=== PATIENT | male | born 1970 | race Caucasian/White ===

== ENCOUNTER → 2016-07-26 | Outpatient (REF) | payer OTHER | LOC: M SFHCPLAZ 11:53 | PROVIDERS: ATTEND Nurse Practitioner Adult Health | DX: R35.0 Frequency of micturition (principal) ==

== ENCOUNTER → 2016-08-22 | Outpatient (CLI) | payer OTHER ==
[2016-08-22 18:06] LABS: ALBUMIN 3.9 GM/DL (3.2-5.2); ALKALINE PHOSPHATASE 87 U/L (45-117); ALT/SGPT 50 U/L (12-78); ANION GAP 9 MEQ/L (8-16); AST/SGOT 40 U/L (15-37); BILIRUBIN,TOTAL 0.8 MG/DL (0.2-1.0); BLOOD UREA NITROGEN 15 MG/DL (7-18); CARBON DIOXIDE LEVEL 30 MEQ/L (21-32); CHLORIDE LEVEL 101 MEQ/L (98-107); CREATININE FOR GFR 1.26 MG/DL (0.70-1.30); GLOMERULAR FILTRATION RATE > 60.0 (>60); GLUCOSE, FASTING 118 MG/DL (70-105); POTASSIUM SERUM 3.6 MEQ/L (3.5-5.1); SODIUM LEVEL 140 MEQ/L (136-145); TOTAL PROTEIN 6.9 GM/DL (6.4-8.2)
== END ==
LOC: M LAB 16:16
PROVIDERS: ATTEND Physician Assistant
DX: I10 Essential (primary) hypertension (principal)

== ENCOUNTER → 2017-01-01 | Outpatient (CLI) | payer MEDICAID, OTHER ==
[~2017-01-01] MED LIST: ALBU17IN INH; ALBU17IN2 INH; ATOR40TA75 PO; AUGM875T28 PO; BREO1INH; BREO1INH INH; CHLO125TA; CHLO25TA PO; COLA100C5 PO; DOCU100C16 PO; IBUP-1022 PO; IBUPOTC PO; MELO15TA4; NORCOTAB PO; NORT75CA2 PO; OMEP40CA2 PO; PROT1TAB2 PO; REGL10TA6 PO; SERT-155; SIME1CAP PO; TRAM50TA2; TYLE325T5 PO
--- NOTE | 2017-01-01 08:33 | REP ---
Abdominal right upper quadrant ultrasound: There is a mobile gallbladder calculus measuring approximately 1.8 cm in diameter. No gallbladder wall thickening or pericholecystic fluid. There is is no right upper quadrant tenderness to transducer pressure. There is no intrahepatic or extrahepatic biliary duct dilatation. The common duct measures 3.7 mm in diameter. The hepatic parenchyma is echogenic compatible with hepato steatosis. No focal hepatic masses are identified. There is focal "fat sparing" near the gallbladder. This is not unusual. The visualized portion of the pancreatic head is unremarkable. The body and tail of pancreas are obscured by bowel gas. There is no right renal hydronephrosis, calculus, mass or cyst. Right kidney is normal size measuring 11.7 cm craniocaudad length. No free fluid is identified. Impression: Echogenic hepatic parenchyma compatible with hepato steatosis. Mobile gallbladder calculus. Otherwise, negative abdominal right upper quadrant ultrasound. The examination is technically difficult because of the patient's body habitus. Signed by Ovidio Broussard MD 01/01/2017 08:25 A
== END ==
LOC: M RAD 07:40
PROVIDERS: ATTEND Physician Assistant
DX: R10.9 Unspecified abdominal pain (principal)

== ENCOUNTER 2017-01-02 16:23 | Emergency (ER) | payer MEDICAID ==
[~2017-01-02] VITALS: Ht 193 cm; Wt 161.3 kg
[2017-01-02] MEDS ORDERED: CHLO125TA (16:37)
[2017-01-02] MEDS ORDERED: TRAM50TA2 (16:37)
[2017-01-02] MEDS ORDERED: SERT-155 (16:37)
[2017-01-02] MEDS ORDERED: NORT75CA2 PO (16:37)
[2017-01-02] MEDS ORDERED: BREO1INH (16:37)
[2017-01-02] MEDS ORDERED: ATOR40TA75 PO (16:37)
[2017-01-02] MEDS ORDERED: MELO15TA4 (16:37)
[2017-01-02] MEDS ORDERED: KETOROLAC 30 MG/ML VIAL (J1885) IV ONE (17:15)
[2017-01-02] MEDS ORDERED: TRIMETHOBENZAMIDE HCL INJ 200 MG/2 ML VIAL (J3250) IM ONE (17:15)
[2017-01-02] MEDS ORDERED: GASTROGRAFIN SOLUTION 30ML (Q9963) As Ordered ONE (17:29)
[2017-01-02] MEDS ORDERED: GASTROGRAFIN SOLUTION 30ML (Q9963) PO ONE ×2 (17:30→18:00)
[2017-01-02 17:48] LABS: BASO % 0.6 % (0.0-1.0); EOS # 0.4 K/mm3 (0.0-0.50); EOS % 5.2 % (0.0-3.0); LARGE UNSTAINED CELL # 0.2 K/mm3 (0.0-0.4); MEAN CORPUSCULAR HEMOGLOBIN 30.5 pg (27.0-33.0); MEAN CORPUSCULAR HGB CONC 34.6 g/dl (32.0-36.5); MEAN CORPUSCULAR VOLUME 88.1 fl (80.0-96.0); MONO # 0.5 K/mm3 (0.0-0.8); MONO % 5.7 % (0.0-5.0); NEUTROPHILS # 5.4 K/mm3 (1.8-7.7); NEUTROPHILS % 64.6 % (36.0-66.0); PLATELET COUNT, AUTOMATED 214 k/mm3 (150-450); RED CELL DISTRIBUTION WIDTH 13.2 % (11.5-14.5); WHITE BLOOD COUNT 8.4 K/mm3 (4.0-10.0)
[2017-01-02 18:07] LABS: ALBUMIN 3.7 GM/DL (3.2-5.2); ALBUMIN/GLOBULIN RATIO 1.19 (1.00-1.93); ALKALINE PHOSPHATASE 83 U/L (45-117); ALT/SGPT 39 U/L (12-78); AMYLASE 33 U/L (25-115); ANION GAP 9 MEQ/L (8-16); AST/SGOT 26 U/L (15-37); BILIRUBIN,DIRECT 0.1 MG/DL (0.0-0.2); BILIRUBIN,TOTAL 0.5 MG/DL (0.2-1.0); BLOOD UREA NITROGEN 13 MG/DL (7-18); CARBON DIOXIDE LEVEL 26 MEQ/L (21-32); CHLORIDE LEVEL 104 MEQ/L (98-107); CREATININE FOR GFR 1.18 MG/DL (0.70-1.30); GLOMERULAR FILTRATION RATE > 60.0 (>60); GLUCOSE, FASTING 112 MG/DL (70-105); POTASSIUM SERUM 3.8 MEQ/L (3.5-5.1); SODIUM LEVEL 139 MEQ/L (136-145); TOTAL PROTEIN 6.8 GM/DL (6.4-8.2)
[2017-01-02] MEDS ORDERED: ISOVUE-370 76% 100ML VIAL (Q9967) As Ordered ONE (18:35)
--- NOTE | 2017-01-02 20:20 | REPUSA ---
CLINICAL HISTORY: Periumbilical pain. TECHNIQUE: CT abdomen and pelvis following administration of IV contrast. COMPARISON: March 21, 2016. CT ABDOMEN WITH CONTRAST: Lung bases: No lung base infiltrate or effusion. There are several nodules in the bilateral lung base s, largest measuring 6 mm in the left lower lobe, unchanged compared to prior. Liver: Fatty hepatic infiltration. No intrahepatic ductal dilation. Gallbladder: Normally distended. Pancreas: No pancreatic duct dilation. Bowel loops: Nondistended. Spleen: Normal size. Adrenals: Normal size. Kidneys: No hydronephrosis. Aorta: Normal caliber. Peritoneum: No free air. Anterior abdominal wall: There are several umbilical and paraumbilical hernias, containing both fat a nd a short loop of small bowel which appears nonobstructed. The bowel loop hernia was not present on the prior exam. CT PELVIS WITH CONTRAST: Bladder: Normally distended. Pelvic organs: Unremarkable. Peritoneum: No fluid. Inguinal: Small right fatty inguinal hernia without bowel. Lumbar spine: Degenerative spondylotic changes at multiple levels. IMPRESSION: 1. Multiple umbilical and paraumbilical hernias. The fatty paraumbilical hernias are stable, while a small bowel loop hernia is new in the interval. However, there is no evidence of strangulation or obs truction. 2. Stable bilateral lower lobe nodules.
[2017-01-02 20:42] VITALS: BP 134/92
[2017-01-02] MEDS ORDERED: OMEP40CA2 PO (20:58)
[2017-01-02] MEDS ORDERED: NORCOTAB PO (20:58)
--- NOTE | 2017-01-04 15:14 | ED PDOC ---
Post-Departure Follow-Up radiology report faxed to Evin Bowers Sarah MD Jan 04, 2017 15:14
== END 2017-01-02 21:09 | disposition home or self-care (01) ==
LOC: M ED 16:23
DX: K43.9 Ventral hernia without obstruction or gangrene (principal); K21.9 Gastro-esophageal reflux disease without esophagitis; R10.9 Unspecified abdominal pain; R91.8 Other nonspecific abnormal finding of lung field; K42.9 Umbilical hernia without obstruction or gangrene
CPT/HCPCS: 74177; 80048; 80076; 81001; 82150; 83605; 83690; 85025; 86140; 96372; 96374; 99283; J1885; J3250; Q9963; Q9967

== ENCOUNTER 2017-02-05 14:21 | Emergency (ER) | payer MEDICAID, OTHER, SELFPAY ==
[~2017-02-05] VITALS: Ht 193 cm; Wt 159.1 kg
[~2017-02-05 14:21] MED LIST changes: -ALBU17IN INH; -ALBU17IN2 INH; -AUGM875T28 PO; -BREO1INH INH; -CHLO25TA PO; -COLA100C5 PO; -DOCU100C16 PO; -IBUP-1022 PO; -IBUPOTC PO; -PROT1TAB2 PO; -REGL10TA6 PO; -SIME1CAP PO; -TYLE325T5 PO
[2017-02-05] MEDS ORDERED: MORPHINE 4 MG/ML 1ML SYRINGE IV PRN (15:45)
[2017-02-05] MEDS ORDERED: ONDANSETRON 4MG/2ML VIAL (J2405) IV ONE (15:45)
[2017-02-05] MEDS ORDERED: NS 1,000 ML IV ONE (15:45)
[2017-02-05 16:09] LABS: BASO # 0.1 K/mm3 (0.0-0.2); BASO % 0.7 % (0.0-1.0); EOS # 0.5 K/mm3 (0.0-0.50); EOS % 5.3 % (0.0-3.0); LARGE UNSTAINED CELL # 0.2 K/mm3 (0.0-0.4); LARGE UNSTAINED CELL % 2.4 % (0.0-4.0); LYMPH # 2.5 K/mm3 (1.5-4.5); LYMPH % 25.6 % (24.0-44.0); MEAN CORPUSCULAR HGB CONC 34.6 g/dl (32.0-36.5); MEAN CORPUSCULAR VOLUME 89.6 fl (80.0-96.0); MONO # 0.4 K/mm3 (0.0-0.8); NEUTROPHILS # 5.4 K/mm3 (1.8-7.7); NEUTROPHILS % 61.1 % (36.0-66.0); PLATELET COUNT, AUTOMATED 212 k/mm3 (150-450); RED CELL DISTRIBUTION WIDTH 12.9 % (11.5-14.5); WHITE BLOOD COUNT 8.8 K/mm3 (4.0-10.0)
[2017-02-05 16:32] LABS: ALBUMIN 3.9 GM/DL (3.2-5.2); ALBUMIN/GLOBULIN RATIO 1.03 (1.00-1.93); ALKALINE PHOSPHATASE 73 U/L (45-117); ALT/SGPT 38 U/L (12-78); ANION GAP 7 MEQ/L (8-16); AST/SGOT 20 U/L (15-37); BILIRUBIN,DIRECT 0.1 MG/DL (0.0-0.2); BILIRUBIN,TOTAL 0.9 MG/DL (0.2-1.0); BLOOD UREA NITROGEN 21 MG/DL (7-18); CALCIUM LEVEL 9.3 MG/DL (8.5-10.1); CARBON DIOXIDE LEVEL 27 MEQ/L (21-32); CHLORIDE LEVEL 104 MEQ/L (98-107); CREATININE FOR GFR 1.25 MG/DL (0.70-1.30); GLOMERULAR FILTRATION RATE > 60.0 (>60); GLUCOSE, FASTING 90 MG/DL (70-105); POTASSIUM SERUM 3.7 MEQ/L (3.5-5.1); SODIUM LEVEL 138 MEQ/L (136-145); TOTAL PROTEIN 7.7 GM/DL (6.4-8.2)
[2017-02-05] MEDS ORDERED: ISOVUE-370 76% 100ML VIAL (Q9967) As Ordered ONE (16:37)
[2017-02-05] MEDS ORDERED: COLA100C5 PO (17:25)
--- NOTE | 2017-02-05 17:27 | REP ---
CT abdomen and pelvis with IV but without oral contrast: History: Lower abdominal pain. Question obstruction versus incarcerated hernia. Comparison CT study 01/02/2017. CT findings: Preliminary digital executive sales manager radiograph demonstrates an unremarkable bowel gas pattern. The lung bases are clear except for the presence of multiple bilateral lower lobe pleural-based pulmonary nodules. These are unchanged from multiple prior studies dating back to 2010. There is mild diffuse fatty infiltration of the liver. No liver mass lesion is seen. No adrenal lesion is observed on either side. The gallbladder and the pancreas are unremarkable. The kidneys enhance symmetrically and are morphologically intact. Pelvic CT images demonstrate a broad-based defect in the anterior abdominal wall in the umbilical region transmitting abdominal fat and a loop of unobstructed small intestine. The abdominal wall defect measures 8.4 cm in medial to lateral dimension x 3.4 cm cranial to caudal. Bowel loops are otherwise unremarkable. Urinary bladder prostate and seminal vesicles are unremarkable. No bony destructive lesion is seen. Impression: Ellen-Umbilical ventral hernia transmitting abdominal fat and a small bowel loop. No evidence of obstruction or strangulation. No acute intra-abdominal abnormality. Signed by Derrick Lozano MD 02/06/2017 08:01 A
[2017-02-05 17:30] VITALS: BP 130/68
== END 2017-02-05 17:31 | disposition home or self-care (01) ==
LOC: M ED 14:21
DX: K43.9 Ventral hernia without obstruction or gangrene (principal); I10 Essential (primary) hypertension; E78.5 Hyperlipidemia, unspecified; J45.909 Unspecified asthma, uncomplicated; F32.9 Major depressive disorder, single episode, unspecified; Z79.899 Other long term (current) drug therapy
CPT/HCPCS: 74177; 80048; 80076; 81001; 83605; 83690; 85025; 96374; 96375; 99283; J2405; Q9967

== ENCOUNTER 2017-02-20 20:54 | Inpatient (IN) | payer OTHER ==
[~2017-02-20] VITALS: Ht 193 cm; Wt 162.0 kg
[~2017-02-20 20:54] MED LIST changes: +COLA100C5 PO
[2017-02-20] MEDS ORDERED: ALBU17IN2 INH (21:10)
[2017-02-20] MEDS ORDERED: ONDANSETRON 4MG/2ML VIAL (J2405) IV ONE (23:15)
[2017-02-20] MEDS ORDERED: NS 1,000 ML IV ONE (23:15)
[2017-02-20] MEDS: MORPHINE 4 MG/ML 1ML SYRINGE IV PRN (23:26)
[2017-02-20 23:27] LABS: BASO # 0.1 K/mm3 (0.0-0.2); BASO % 0.7 % (0.0-1.0); EOS # 0.4 K/mm3 (0.0-0.50); EOS % 3.9 % (0.0-3.0); LARGE UNSTAINED CELL # 0.2 K/mm3 (0.0-0.4); LYMPH # 2.4 K/mm3 (1.5-4.5); MEAN CORPUSCULAR HEMOGLOBIN 29.8 pg (27.0-33.0); MEAN CORPUSCULAR HGB CONC 33.4 g/dl (32.0-36.5); MEAN CORPUSCULAR VOLUME 89.2 fl (80.0-96.0); MONO # 0.4 K/mm3 (0.0-0.8); MONO % 4.4 % (0.0-5.0); NEUTROPHILS # 5.9 K/mm3 (1.8-7.7); PLATELET COUNT, AUTOMATED 178 k/mm3 (150-450); RED CELL DISTRIBUTION WIDTH 12.6 % (11.5-14.5); WHITE BLOOD COUNT 9.1 K/mm3 (4.0-10.0)
[2017-02-20 23:43] LABS: ALBUMIN 3.5 GM/DL (3.2-5.2); ALBUMIN/GLOBULIN RATIO 1.17 (1.00-1.93); ALKALINE PHOSPHATASE 65 U/L (45-117); ALT/SGPT 34 U/L (12-78); ANION GAP 7 MEQ/L (8-16); AST/SGOT 14 U/L (15-37); BILIRUBIN,DIRECT 0.1 MG/DL (0.0-0.2); BILIRUBIN,TOTAL 0.5 MG/DL (0.2-1.0); BLOOD UREA NITROGEN 14 MG/DL (7-18); CARBON DIOXIDE LEVEL 28 MEQ/L (21-32); CHLORIDE LEVEL 107 MEQ/L (98-107); CREATININE FOR GFR 1.25 MG/DL (0.70-1.30); GLOMERULAR FILTRATION RATE > 60.0 (>60); GLUCOSE, FASTING 124 MG/DL (70-105); POTASSIUM SERUM 3.7 MEQ/L (3.5-5.1); SODIUM LEVEL 142 MEQ/L (136-145); TOTAL PROTEIN 6.5 GM/DL (6.4-8.2)
[2017-02-21] MEDS: MORPHINE 4 MG/ML 1ML SYRINGE IV PRN (00:08)
[2017-02-21] MEDS ORDERED: ISOVUE-370 76% 100ML VIAL (Q9967) As Ordered ONE ×2 (00:42→14:27)
--- NOTE | 2017-02-21 01:30 | REPUSA ---
CLINICAL HISTORY: Abdominal pain. TECHNIQUE: Multiple axial, sagittal and coronal CT images were obtained through the abdomen and pelvi s after administration of oral and intravenous contrast material. COMMENTS: Comparison to the prior exam performed on 01/02/2017. Unchanged hepatomegaly with fatty liver infiltration. Unchanged bilateral basilar atelectatic pulmonary changes. Unchanged cholelithiasis. Unchanged basilar scattered noncalcified pulmonary nodules. Again are noted anterior abdominal wall hernias containing fat. No associated small bowel herniation on the current exam. Mildly dilated mid small bowel loops are identified at the junction between the jejunum and ileum adj acent to the intra-abdominal fat at the hernia site. Findings are suspicious for partial small bowel obstruction, probably secondary to adhesions. No associated small bowel perforation or pneumatosis in testinalis. No associated small bowel herniation or strangulation. Bilateral fat containing inguinal hernias without incarceration. There is no intra or extrahepatic biliary ductal dilatation. The spleen is normal. The gallbladder is within normal limits. The pancreas is of normal contour and attenuation characteristics. There is no evidence of adrenal mass. Both kidneys demonstrate prompt and equal nephrograms. The kidneys are normal in size, shape and conf iguration. There is no evidence of renal or ureteral mass. No renal or ureteral calculi are identifie d. There is no hydroureter or hydronephrosis. No evidence for appendicitis. There is no evidence of abdominal ascites or lymphadenopathy. There is no evidence of intrinsic or extrinsic bladder mass. There is no pelvic ascites or lymphadeno elina. Images of the lung bases show no evidence of pleural or parenchymal mass. There are no pleural effusi ons. The bony structures are free of lytic or blastic lesions. IMPRESSION: Comparison to the prior exam performed on 01/02/2017. Unchanged hepatomegaly with fatty liver infiltration. Unchanged bilateral basilar atelectatic pulmonary changes. Unchanged cholelithiasis. Unchanged basilar scattered noncalcified pulmonary nodules. Again are noted anterior abdominal wall hernias containing fat. No associated small bowel herniation on the current exam. Mildly dilated mid small bowel loops are identified at the junction between the jejunum and ileum adj acent to the intra-abdominal fat at the hernia site. Findings are suspicious for partial small bowel obstruction, probably secondary to adhesions. No associated small bowel perforation or pneumatosis in testinalis. No associated small bowel herniation or strangulation. Bilateral fat containing inguinal hernias without incarceration. Thank you for your kind referral of this patient.
[2017-02-21] MEDS ORDERED: MORPHINE 4 MG/ML 1ML SYRINGE IV PRN (01:45)
[2017-02-21] MEDS ORDERED: ONDANSETRON 4MG/2ML VIAL (J2405) IV ONE (01:45)
[2017-02-21] MEDS ORDERED: ONDANSETRON 4MG/2ML VIAL (J2405) IV PRN (03:00)
[2017-02-21] MEDS: LR 1,000 ML IV SCH ×3 (03:06→21:37)
[2017-02-21] MEDS ORDERED: DOCU100C16 PO (03:22)
[2017-02-21] MEDS ORDERED: BREO1INH INH (03:22)
[2017-02-21] MEDS ORDERED: ALBU17IN INH (03:22)
[2017-02-21] MEDS ORDERED: CHLO25TA PO (03:22)
[2017-02-21] MEDS ORDERED: IBUPOTC PO (03:22)
[2017-02-21 04:20] VITALS: BP 137/90
[2017-02-21] MEDS: MORPHINE 2 MG/ML 1ML SYRINGE IV PRN ×2 (06:31→16:02)
[2017-02-21] MEDS ORDERED: CHLORTHALIDONE 25 MG TAB PO SCH (09:00)
[2017-02-21] MEDS ORDERED: BISACODYL 10 MG SUPP PR PRN (10:45)
[2017-02-21] MEDS ORDERED: IBUPROFEN 200 MG TAB PO PRN (10:45)
[2017-02-21] MEDS ORDERED: MOM 30ML SUSPENSION UDC PO PRN (10:45)
[2017-02-21] MEDS ORDERED: NORCO, ANEXSIA 5/325MG TABLET (HYDROcodone/ACETAMINOPHEN) PO PRN (10:45)
[2017-02-21] MEDS ORDERED: ALBUTEROL 90 MCG/ACT 8GM HFA INHALER INH PRN (10:45)
[2017-02-21] MEDS ORDERED: KETOROLAC 30 MG/ML VIAL (J1885) IV PRN (10:45)
[2017-02-21] MEDS: DOCUSATE SODIUM 100 MG CAP PO SCH ×2 (11:58→21:38)
[2017-02-21] MEDS: PANTOPRAZOLE 40MG INJ (PROTONIX) (C9113) IV SCH (11:58)
[2017-02-21] MEDS: SENOKOT S TAB PO SCH ×2 (11:58→21:38)
[2017-02-21] MEDS: PIPERACILLIN/TAZOBACTAM SOD 3.375 GM in D5W MINI-BAG PLUS 50 ML IV SCH ×3 (11:59→22:38)
--- NOTE | 2017-02-21 13:01 | CR ---
DATE OF CONSULTATION: 02/21/2017 REQUESTING PROVIDER: Dr. Lozoya, general surgeon. PRIMARY CARE PROVIDER: REX Driver CURRENT FAMILY MEDICINE ATTENDING: Moisés Acevedo MD CHIEF COMPLAINT: Abdominal pain. HISTORY OF PRESENT ILLNESS: Hunter Marrufo is a patient who was admitted by Dr. Lozoya for abdominal pain and found to have a partial small-bowel obstruction. Hunter Marrufo is a patient who follows with REX Driver at [facility]. He has currently been undergoing workup for consideration of gastric bypass surgery and is following with Dr. Luevano in [place]. The patient was seen last week for preoperative clearance; however, clearance was not granted due to some EKG abnormalities and the patient has been referred to [facility], whom he has been seen in the past by for further workup, including stress testing and cardiac clearance. Otherwise, the patient is followed for history of asthma, which is well-controlled on Breo Ellipta. The patient does have a history of hypertension and is on chlorthalidone. He is on atorvastatin for hyperlipidemia. The patient does have a history of abdominal hernias that he has been seen by general surgery in the past. Since the patient's admission, a nasogastric tube was placed and he reports feeling better. Dr. Lozoya is managing the partial small-bowel obstruction. He was started on IV Zosyn and is getting IV fluids. He is getting morphine as needed for pain and is on Protonix for GI prophylaxis. REVIEW OF SYSTEMS: The patient denies chest pain, palpitations, shortness of breath, headaches, dizziness, fevers, chills, loss of consciousness, cold symptoms, anxiety or depression. The patient does continue to have some abdominal discomfort but he states it is better since the NG tube was placed. Remainder of 10-system review is otherwise negative. MEDICATIONS: The patient's outpatient medications include: - Colace 100 mg daily - nortriptyline 75 mg at night - albuterol inhaler as needed - atorvastatin 40 mg by mouth at night - chlorthalidone 12.5 mg daily - Zoloft 50 mg daily - Breo Ellipta one puff daily - Zofran as needed - Tramadol 50 mg every 6 hours as needed for pain PAST MEDICAL HISTORY: Includes: 1. Asthma. 2. Migraine headaches. 3. Hypertension. 4. History of ventral hernia. 5. Obesity. SURGICAL HISTORY: Includes: 1. Left ankle surgery. 2. Right index finger surgery. 3. Umbilical hernia repair. FAMILY HISTORY: Noncontributory. SOCIAL HISTORY: The patient is a nonsmoker. The patient lives with his . ALLERGIES: NO KNOWN DRUG ALLERGIES. VITAL SIGNS: Temperature 97.1, pulse 75, respiratory rate 18, blood pressure is 137/90, pulse oximetry 96%. GENERAL: The patient is alert, no acute distress. No respiratory distress. HEENT: Head is normocephalic, atraumatic. CHEST: Clear to auscultation bilaterally. HEART: Regular rate and rhythm. ABDOMEN: Obese. Positive bowel sounds, soft, diffuse tenderness to palpation all quadrants. The patient does have an NG tube in. EXTREMITIES: No clubbing, cyanosis or edema. LABORATORY DATA: Labs from 02/20/2017 a 2153 hours: WBC 9.1, hemoglobin 14.3, hematocrit 42.7, platelets 178. Sodium 142, potassium 3.7, chloride 107, carbon dioxide 28, BUN 14, creatinine 1.25, glucose 125, calcium 9.0, total bili 0.5, direct bilirubin 0.1, AST 14, ALT 34, alkaline phosphatase 65, CK1 of 76, CK-MB 1.5, CK-MB relative index 0.85. Troponin I of less than 0.02, total protein 6.5, albumin 3.5, lipase 250. IMAGING STUDIES: CT the abdomen, pelvis shows comparison to prior exam on 01/02/2017, which showed unchanged hepatomegaly with fatty liver infiltration. Unchanged bilateral basilar atelectatic pulmonary changes. Unchanged cholelithiasis. Unchanged basilar scattered noncalcified pulmonary nodules. Anterior abdominal wall hernias containing fat. Mildly dilated mid small bowel loops at the junction between the jejunum and ileum adjacent to the intra-abdominal fat at the hernia site and radiologist notes the findings are suspicious for partial small bowel obstruction, probably secondary to adhesions. No associated small bowel perforation or pneumatosis intestinalis. No associated small-bowel herniation or strangulation. Bilateral fat containing inguinal hernias without incarceration. ASSESSMENT AND PLAN: 1. Partial small-bowel obstruction. The patient is admitted to the surgical service and is being followed by Dr. Lozoya. Currently has a nasogastric tube. Continue pain control with as needed morphine. Getting IV fluids. Is on IV Zosyn. 2. History of abdominal hernias. As noted, the patient is being followed by general surgery. 3. Morbid obesity. The patient is currently being worked up and considered for gastric bypass surgery with Dr. Luevano in [place]. 4. History of abnormal EKG. The patient has been referred to cardiology as an outpatient for cardiac clearance and stress testing. Currently, no cardiac symptoms or chest pain. 5. History of pulmonary nodules on CT. Recent CT notes unchanged basilar scattered noncalcified pulmonary nodules. In reviewing his previous CTs, these have been unchanged since at least 2010. 6. Hypertension. Continue chlorthalidone. 7. Asthma. The patient is on as needed albuterol. 8. Hyperlipidemia. The patient is on Lipitor. 9. Gastrointestinal prophylaxis. The patient is on Protonix. 10. Deep vein thrombosis (DVT) prophylaxis. The patient is on heparin.
[2017-02-21 14:00] VITALS: BP 155/99
[2017-02-21] MEDS: HEPARIN SOD (PORCINE) 5000 UNITS/ML VIAL SC SCH ×3 (14:00→21:38)
--- NOTE | 2017-02-21 15:46 | HPE ---
DATE OF ADMISSION: 02/21/2017 CHIEF COMPLAINT: Abdominal distention and pain. HISTORY OF PRESENT ILLNESS: The patient is a 46-year-old male with a complicated history of abdominal hernia repair in the past. Since then, he has had chronic upper abdominal pains and chronic nausea. He currently is undergoing workup for a bariatric procedure and they are going to fix this recurrent umbilical hernia for him at the same time. However, that was delayed due to an abnormal EKG and he is waiting on cardiac clearance. For the last 24 hours, he has had increased abdominal distention, upper abdominal pain and cramping as well as some increased nausea and vomiting. Because of that, he came into the emergency room for evaluation. In the emergency room (ER), his laboratories were normal. No fevers but his CT scan did show slightly dilated proximal small bowel suspicious for a partial small bowel obstruction secondary to adhesions. Because of this, I was asked to evaluate him for admission. Currently, he has been admitted and had an nasogastric (NG) tube placed. After NG tube placement, his nausea and vomiting were quickly relieved as well as some of his abdominal discomfort. I have discussed this case with Donnie Bowers, his PA through Dr. Waters' office, who says that his abdominal pain is usually chronic in nature but he does agree that his symptoms are slightly increased from baseline. He has had the umbilical hernia repair somewhere from 6-8 years ago. No other abdominal surgeries. No recent changes to his abdomen. No recent illness. No recent travel. No recent trauma to the abdomen. PAST MEDICAL HISTORY: 1. Asthma. 2. Migraines. 3. Hypertension. 4. Obesity. PAST SURGICAL HISTORY: 1. Left ankle surgery. 2. Right index finger surgery. 3. Umbilical hernia repair. ALLERGIES: None. HOME MEDICATIONS: Please see medical record. FAMILY HISTORY: Noncontributory. SOCIAL HISTORY: He denies any drug, alcohol, or tobacco abuse. REVIEW OF SYSTEMS: Pertinent positives and negatives as stated in the history of present illness (HPI). PHYSICAL EXAMINATION: GENERAL: The patient is alert and oriented times three, in no acute distress. VITAL SIGNS: Temperature 97.1, pulse 75, respiratory rate 18, blood pressure 137/90, pulse oximetry 94% on room air. HEENT: Pupils are equally round and react to light and accommodation. HEART: S1, S2, regular rate and rhythm. LUNGS: Clear to auscultation bilaterally. ABDOMEN: Soft, slightly distended, tender to palpation in the left upper and right upper quadrant. No rebounding or guarding. No signs of peritonitis. There is a large ventral hernia palpable that is incarcerated and nonreducible. However, there are no skin changes over the to of it and no tenderness over palpation at that area. EXTREMITIES: No clubbing, cyanosis, or edema. LABORATORY DATA: White count 9.1, hemoglobin 14.3, platelets 178. Sodium 142, potassium 3.7, creatinine 1.25. IMAGING STUDIES: CT abdomen and pelvis shows comparison to a prior examination from 01/02/2017, unchanged hepatomegaly, unchanged cholelithiasis. There are anterior abdominal wall hernias containing fat. No small bowel herniation. There is mildly dilated mid small bowel loops identified at the junction between the jejunum and ileum adjacent to the intraabdominal fat at the hernia site. Findings are suspicious for a partial small bowel obstruction, probably secondary to adhesions. No associated small bowel perforation or pneumatosis intestinalis. ASSESSMENT AND PLAN: The patient is a 46-year-old male with partial small bowel obstruction versus ileus, likely secondary to adhesions. Recommendation at this time is to treat medically with nasogastric (NG) tube, IV fluids, antibiotics, and abdominal decompression. We will try this for 72 hours. If he does not have any improvement in his symptoms then he may be a candidate for a diagnostic laparoscopy with lysis of adhesions to relieve the obstruction. Due to his history of the abnormal EKG, I have to REX Pelayo who plans to evaluate him while he is here.
--- NOTE | 2017-02-21 15:48 | REP ---
Clinical: Follow-up pulmonary nodules. Technique: Axial contrast enhanced images from the thoracic inlet to the upper abdomen using 100 ml Isovue 370 intravenous contrast material with coronal and sagittal re-formations. Comparison: Multiple abdominal CT examinations dating through 09/16/2010. Findings: The noncalcified bilateral basilar subpleural and peripheral based nodules remain stable through CT dated 2010. Mild linear bibasilar atelectasis is appreciated and should be correlated clinically. The remainder of lung glass are clear and without further consolidation, nodule or mass lesion. No axillary, hilar, or mediastinal adenopathy. Mediastinum demonstrates normal thoracic aorta and heart/pericardium. Nasogastric tube identified extending into the stomach. Fatty infiltration to the liver is appreciated along with cholelithiasis. Surrounding musculoskeletal structures are intact. Impression: 1. Noncalcified nodular densities remain stable compared to 2010 and require no further investigation. 2. Minimal bibasilar atelectasis. 3. Fatty infiltration to the liver. 4. Cholelithiasis. Signed by Donnie Tucker MD 02/21/2017 03:40 P
--- NOTE | 2017-02-21 18:25 | ECGEPIP ---
Stationary ECG Study [facility] - ED Test Date: 2017-02-20 Pat Name: ANTHONY ARIAS Department: Room: [place] [address] Gender: M Tank Cleaner: dorinda : 1970 Requested By: VLADIMIR Rivera Order Number: [id number] Reading MD: Jayson Smiley Measurements Intervals [place] Rate: 80 P: 16 GA: 216 QRS: -66 QRSD: 128 T: 47 QT: 363 QTc: 419 Interpretive Statements SINUS RHYTHM WITH FIRST DEGREE AV BLOCK LAD LEFT ANTERIOR FASCICULAR BLOCK POSSIBLE ANTERIOR MYOCARDIAL INFARCTION, OF INDETERMINATE AGE Electronically Signed On 02-21-2017 18:25:42 EDT by Jayson Smiley
[2017-02-21] MEDS: ADVAIR HFA 115/21MCG INHALER INH SCH (21:35)
[2017-02-21] MEDS: NORTRIPTYLINE 25 MG CAP PO SCH (21:38)
[2017-02-21] MEDS: ATORVASTATIN 20 MG TAB PO SCH (21:38)
[2017-02-21 22:00] VITALS: BP 135/86
[2017-02-21] MEDS: ACETAMINOPHEN TAB 650MG DOSE (2X325MG) PO PRN (22:38)
[2017-02-22] MEDS: HEPARIN SOD (PORCINE) 5000 UNITS/ML VIAL SC SCH ×3 (05:42→21:35)
[2017-02-22] MEDS: PIPERACILLIN/TAZOBACTAM SOD 3.375 GM in D5W MINI-BAG PLUS 50 ML IV SCH ×4 (05:42→23:20)
[2017-02-22] MEDS: LR 1,000 ML IV SCH ×3 (05:42→19:54)
[2017-02-22 06:00] VITALS: BP 116/65
[2017-02-22 06:39] LABS: MEAN CORPUSCULAR HGB CONC 33.3 g/dl (32.0-36.5); MEAN CORPUSCULAR VOLUME 90.2 fl (80.0-96.0); RED CELL DISTRIBUTION WIDTH 12.7 % (11.5-14.5); WHITE BLOOD COUNT 6.2 K/mm3 (4.0-10.0)
[2017-02-22 06:54] LABS: ANION GAP 9 MEQ/L (8-16); BLOOD UREA NITROGEN 11 MG/DL (7-18); CALCIUM LEVEL 8.4 MG/DL (8.5-10.1); CARBON DIOXIDE LEVEL 29 MEQ/L (21-32); CHLORIDE LEVEL 104 MEQ/L (98-107); CREATININE FOR GFR 1.07 MG/DL (0.70-1.30); GLOMERULAR FILTRATION RATE > 60.0 (>60); GLUCOSE, FASTING 94 MG/DL (70-105); MAGNESIUM LEVEL 1.9 MG/DL (1.8-2.4); POTASSIUM SERUM 3.6 MEQ/L (3.5-5.1); SODIUM LEVEL 142 MEQ/L (136-145)
[2017-02-22] MEDS: ADVAIR HFA 115/21MCG INHALER INH SCH ×2 (08:13→20:12)
[2017-02-22] MEDS: CHLORTHALIDONE 12.5MG PER 1/2 TABLET PO SCH (09:00)
[2017-02-22] MEDS: PANTOPRAZOLE 40MG INJ (PROTONIX) (C9113) IV SCH (09:14)
[2017-02-22] MEDS: DOCUSATE SODIUM 100 MG CAP PO SCH ×2 (09:14→21:35)
[2017-02-22] MEDS: SENOKOT S TAB PO SCH ×2 (09:14→21:34)
[2017-02-22] MEDS: ACETAMINOPHEN TAB 650MG DOSE (2X325MG) PO PRN ×2 (09:24→20:31)
[2017-02-22 14:00] VITALS: BP 131/87
[2017-02-22] MEDS: NORTRIPTYLINE 25 MG CAP PO SCH (21:35)
[2017-02-22] MEDS: ATORVASTATIN 20 MG TAB PO SCH (21:35)
[2017-02-22 22:00] VITALS: BP 136/68
[2017-02-23] MEDS: LR 1,000 ML IV SCH ×2 (03:44→15:14)
[2017-02-23] MEDS: HEPARIN SOD (PORCINE) 5000 UNITS/ML VIAL SC SCH ×3 (05:23→20:30)
[2017-02-23] MEDS: PIPERACILLIN/TAZOBACTAM SOD 3.375 GM in D5W MINI-BAG PLUS 50 ML IV SCH ×2 (05:23→11:52)
[2017-02-23 05:43] LABS: MEAN CORPUSCULAR HEMOGLOBIN 30.4 pg (27.0-33.0); MEAN CORPUSCULAR HGB CONC 33.9 g/dl (32.0-36.5); MEAN CORPUSCULAR VOLUME 89.6 fl (80.0-96.0); RED CELL DISTRIBUTION WIDTH 12.6 % (11.5-14.5); WHITE BLOOD COUNT 7.5 K/mm3 (4.0-10.0)
[2017-02-23 06:00] VITALS: BP 138/98
[2017-02-23 06:09] LABS: ANION GAP 6 MEQ/L (8-16); BLOOD UREA NITROGEN 7 MG/DL (7-18); CALCIUM LEVEL 9.3 MG/DL (8.5-10.1); CARBON DIOXIDE LEVEL 32 MEQ/L (21-32); CHLORIDE LEVEL 103 MEQ/L (98-107); CREATININE FOR GFR 1.17 MG/DL (0.70-1.30); GLOMERULAR FILTRATION RATE > 60.0 (>60); GLUCOSE, FASTING 92 MG/DL (70-105); MAGNESIUM LEVEL 2.2 MG/DL (1.8-2.4); POTASSIUM SERUM 3.6 MEQ/L (3.5-5.1); SODIUM LEVEL 141 MEQ/L (136-145)
[2017-02-23] MEDS: ADVAIR HFA 115/21MCG INHALER INH SCH ×2 (07:25→20:12)
[2017-02-23 09:36] VITALS: BP 132/94
[2017-02-23] MEDS: SENOKOT S TAB PO SCH ×2 (10:05→20:30)
[2017-02-23] MEDS: CHLORTHALIDONE 12.5MG PER 1/2 TABLET PO SCH (10:05)
[2017-02-23] MEDS: PANTOPRAZOLE 40MG INJ (PROTONIX) (C9113) IV SCH (10:05)
[2017-02-23] MEDS: DOCUSATE SODIUM 100 MG CAP PO SCH ×2 (10:05→20:30)
[2017-02-23 14:35] VITALS: BP 132/85
--- NOTE | 2017-02-23 16:25 | IPN ---
DATE: 02/23/2017 SUBJECTIVE: The patient is now day three in the hospital for management of an intestinal obstruction. His nasogastric (NG) tube has been clamped since yesterday and he has been tolerating clear liquids without any difficulty. He is having flatus but denies any bowel movement, though he does have a quantity of stool recorded in the intake and output. He denies any pain at this time. He has been up ambulating. Vital signs most recently show a temperature of 99.2, pulse is 89, respirations 18 with a blood pressure of 132/85. His room air saturation is 94%. Intake and output: Yesterday he had 3300 in and 2800 out. So far today, he has had 600 of oral intake and 1400 of intravenous (IV) fluid. PHYSICAL EXAMINATION: Patient is an obese young man lying quietly on the hospital bed. He has a nasogastric tube in place which is clamped. Heart exam shows a regular rate and rhythm. The lungs are clear. The abdomen is obese and soft. His hernia is palpable in the right lower quadrant and this is mildly tender initially, but does seem to be at least partially reducible. The remainder of his abdomen is nontender with active bowel sounds. LABORATORY FINDINGS: White count is 7.5 with a hemoglobin of 14, hematocrit of 42%. Chemistries show a normal set of electrolytes, BUN, creatinine and glucose. IMPRESSION: Resolved intestinal obstruction. PLAN: The patient's NG tube will be discontinued. His diet will be advanced to regular. His IV fluid will be discontinued. If he tolerates his regular diet today, I would anticipate he could be discharged tomorrow. DINORAH
[2017-02-23] MEDS ORDERED: HEPARIN SOD (PORCINE) 5000 UNITS/ML VIAL As Ordered ONE (20:27)
[2017-02-23] MEDS: ATORVASTATIN 20 MG TAB PO SCH (20:30)
[2017-02-23] MEDS: NORTRIPTYLINE 25 MG CAP PO SCH (20:31)
[2017-02-23 22:00] VITALS: BP 140/88
[2017-02-24] MEDS: HEPARIN SOD (PORCINE) 5000 UNITS/ML VIAL SC SCH (05:41)
[2017-02-24 06:00] VITALS: BP 123/75
[2017-02-24] MEDS: ADVAIR HFA 115/21MCG INHALER INH SCH (07:19)
[2017-02-24] MEDS: CHLORTHALIDONE 12.5MG PER 1/2 TABLET PO SCH (09:41)
[2017-02-24] MEDS: DOCUSATE SODIUM 100 MG CAP PO SCH (09:41)
[2017-02-24] MEDS: SENOKOT S TAB PO SCH (09:41)
--- NOTE | 2017-02-24 14:12 | IPN ---
DATE: 02/24/2017 The patient is dressed in street clothes and lying quietly on the bed when I entered today. He tolerated his regular diet well. He denies any nausea or vomiting. He has had bowel movements and is passing some gas. VITAL SIGNS: Temperature 97.4, pulse 91, respirations 18 and a blood pressure of 123/75 at 0600. Intake and output yesterday was 4200 in and 1100 recorded out. He has several voids recorded today. PHYSICAL EXAMINATION: Reveals an obese man in no obvious discomfort. Heart examination shows a regular rhythm. The lungs are clear. The abdomen is obese and soft. He is nondistended. There is some minimal tenderness to palpation in the right upper quadrant. His hernia is palpable at the level of the umbilicus but is nontender. He does have active bowel sounds present. There are no new laboratory studies or imaging today. IMPRESSION: Resolved intestinal obstruction. The patient is tolerating a regular diet and has had a return of bowel function. PLAN: The patient will be discharged home. He was advised that there is always a chance that his obstruction could recur and that this is unpredictable and unpreventable. I did recommend that he avoid stringy vegetables in his diet for the next week or so. He can followup with general surgery on an as-needed basis. I advised him that if he notes a recurrence of obstruction symptoms, he should come to the emergency department. He should continue his followup with his primary MD regarding the workup for his gastric bypass. DINORAH
--- NOTE | 2017-03-01 19:18 | DSES ---
DATE OF ADMISSION: 02/21/2017 DATE OF DISCHARGE: 02/24/2017 ADMISSION DIAGNOSIS: Partial small-bowel obstruction. DISCHARGE DIAGNOSIS Partial small-bowel obstruction. HOSPITAL COURSE: The patient is a 46-year-old male with complicated history of abdominal hernia repair in the past. Currently has a very large recurrent hernia and is awaiting gastric bypass with hernia repair. He just waiting on finishing up a cardiac workup. He presented to the emergency room (ER) on February 21 with increasing abdominal distension, nausea, and vomiting, found to have a possible partial small-bowel obstruction on CT scan. He had a nasogastric (NG) tube placed, intravenous (IV) fluids started, and was kept nothing by mouth for the first 48 hours. He had minimal output from his NG tube and started to pass flatus right away. Within 48 hours his abdominal pain completely resolved. NG tube was clamped, and he started on clear liquid diet. After 12 hours the NG tube was removed, and his diet was advanced. Over the next 24 hours, he started to have some small bowel movements, and his belly pain continued to improve. The morning of the February 24, his abdomen was soft, nondistended. The ventral hernias were palpable and soft. No signs of any skin changes. He was tolerating regular rate diet and ambulating appropriately. Plan was to discharge home. Followup with his primary physician, Evin Bowers, and continue his cardiac workup so he can proceed with his surgery as planned.
== END 2017-02-24 13:00 | disposition home or self-care (01) | DRG 247 ==
LOC: M ED 20:54 → EDBD 20:54 → M ED INP 02-21 02:34 → M MSPAV 02-21 04:17
PROVIDERS: ADMIT Surgery; ATTEND Surgery
DX: K56.60 Unspecified intestinal obstruction (principal); Z68.41 Body mass index [BMI] 40.0-44.9, adult; I10 Essential (primary) hypertension; E66.01 Morbid (severe) obesity due to excess calories; J45.909 Unspecified asthma, uncomplicated; Z79.899 Other long term (current) drug therapy; R91.8 Other nonspecific abnormal finding of lung field; E78.5 Hyperlipidemia, unspecified

== ENCOUNTER 2017-03-01 12:51 | Emergency (ER) | payer MEDICAID, OTHER ==
[~2017-03-01] VITALS: Ht 193 cm; Wt 159.1 kg
[~2017-03-01 12:51] MED LIST changes: +ALBU17IN INH; +ALBU17IN2 INH; +BREO1INH INH; +CHLO25TA PO; +DOCU100C16 PO; +IBUPOTC PO
[2017-03-01] MEDS ORDERED: METOCLOPRAMIDE INJ 10MG/2ML VIAL (J2765) IV ONE (14:15)
[2017-03-01] MEDS ORDERED: NS 1,000 ML IV ONE (14:15)
[2017-03-01 14:55] LABS: BASO % 0.6 % (0.0-1.0); EOS # 0.3 K/mm3 (0.0-0.50); EOS % 3.2 % (0.0-3.0); LARGE UNSTAINED CELL # 0.1 K/mm3 (0.0-0.4); LARGE UNSTAINED CELL % 1.1 % (0.0-4.0); LYMPH # 2.2 K/mm3 (1.5-4.5); LYMPH % 25.1 % (24.0-44.0); MEAN CORPUSCULAR HEMOGLOBIN 29.9 pg (27.0-33.0); MEAN CORPUSCULAR HGB CONC 33.8 g/dl (32.0-36.5); MEAN CORPUSCULAR VOLUME 88.4 fl (80.0-96.0); MONO # 0.5 K/mm3 (0.0-0.8); MONO % 5.7 % (0.0-5.0); NEUTROPHILS # 5.4 K/mm3 (1.8-7.7); NEUTROPHILS % 64.2 % (36.0-66.0); PLATELET COUNT, AUTOMATED 210 k/mm3 (150-450); RED CELL DISTRIBUTION WIDTH 12.7 % (11.5-14.5); WHITE BLOOD COUNT 8.4 K/mm3 (4.0-10.0)
--- NOTE | 2017-03-01 15:04 | REP ---
Abdomen series: Six views. History: Abdominal pain. Comparison chest x-ray June 18, 2013. Findings: Upright chest radiograph is unremarkable. There is no evidence of infiltrate or free subdiaphragmatic air. Heart is not enlarged. Supine and erect views of the abdomen show air and stool in a nondistended colon. No large or small bowel dilation is seen. Psoas margins and flank stripes are intact. No mass, organomegaly or pathologic calcifications appreciated. Impression: Negative abdominal series. Signed by Derrick Lozano MD 03/01/2017 03:38 P
[2017-03-01 15:22] LABS: ALBUMIN 3.7 GM/DL (3.2-5.2); ALBUMIN/GLOBULIN RATIO 1.03 (1.00-1.93); ALKALINE PHOSPHATASE 63 U/L (45-117); ALT/SGPT 56 U/L (12-78); ANION GAP 10 MEQ/L (8-16); AST/SGOT 24 U/L (15-37); BILIRUBIN,DIRECT 0.2 MG/DL (0.0-0.2); BILIRUBIN,TOTAL 0.9 MG/DL (0.2-1.0); BLOOD UREA NITROGEN 21 MG/DL (7-18); CALCIUM LEVEL 9.4 MG/DL (8.5-10.1); CARBON DIOXIDE LEVEL 26 MEQ/L (21-32); CHLORIDE LEVEL 105 MEQ/L (98-107); CREATININE FOR GFR 1.08 MG/DL (0.70-1.30); GLOMERULAR FILTRATION RATE > 60.0 (>60); GLUCOSE, FASTING 106 MG/DL (70-105); POTASSIUM SERUM 3.5 MEQ/L (3.5-5.1); SODIUM LEVEL 141 MEQ/L (136-145); TOTAL PROTEIN 7.3 GM/DL (6.4-8.2)
[2017-03-01] MEDS ORDERED: REGL10TA6 PO (16:15)
[2017-03-01] MEDS ORDERED: SIME1CAP PO (16:15)
[2017-03-01] MEDS ORDERED: PROT1TAB2 PO (16:15)
[2017-03-01 16:21] VITALS: BP 140/99
== END 2017-03-01 16:24 | disposition home or self-care (01) ==
LOC: M ED 12:51
DX: R10.9 Unspecified abdominal pain (principal); K43.9 Ventral hernia without obstruction or gangrene; R11.0 Nausea; K59.00 Constipation, unspecified; J45.909 Unspecified asthma, uncomplicated; I10 Essential (primary) hypertension; E78.00 Pure hypercholesterolemia, unspecified; F33.9 Major depressive disorder, recurrent, unspecified; Z79.899 Other long term (current) drug therapy; Z98.890 Other specified postprocedural states; Z86.14 Personal history of Methicillin resistant Staphylococcus aureus infection
CPT/HCPCS: 74022; 80048; 80076; 83690; 85025; 96361; 96374; 99283; J2765

== ENCOUNTER → 2017-03-20 | Outpatient (REF) | payer OTHER, MEDICAID ==
[~2017-03-20] MED LIST changes: +AUGM875T28 PO; +IBUP-1022 PO; +PROT1TAB2 PO; +REGL10TA6 PO; +SIME1CAP PO; +TYLE325T5 PO
== END ==
LOC: M SFHCPLAZ 16:51
PROVIDERS: ATTEND Physician Assistant
DX: J02.9 Acute pharyngitis, unspecified (principal)

== ENCOUNTER 2017-04-04 06:40 | Emergency (ER) | payer MEDICAID, OTHER ==
[~2017-04-04] VITALS: Ht 193 cm; Wt 154.5 kg
[~2017-04-04 06:40] MED LIST changes: -AUGM875T28 PO; -IBUP-1022 PO; -TYLE325T5 PO
[2017-04-04] MEDS: MORPHINE 4 MG/ML 1ML SYRINGE IV PRN ×2 (07:14→07:24)
[2017-04-04] MEDS ORDERED: ONDANSETRON 4MG/2ML VIAL (J2405) IV ONE (07:15)
[2017-04-04 07:29] LABS: BASO % 0.6 % (0.0-1.0); EOS # 0.3 10^3/uL (0.0-0.50); EOS % 4.3 % (0.0-3.0); IMMATURE GRANULOCYTE % 0.4 % (0-0); LYMPH # 2.1 10^3/uL (1.5-4.5); LYMPH % 29.5 % (24.0-44.0); MEAN CORPUSCULAR HGB CONC 34.1 g/dl (32.0-36.5); MONO # 0.4 10^3/uL (0.0-0.8); MONO % 6.2 % (0.0-5.0); NEUTROPHILS # 4.2 10^3/uL (1.8-7.7); PLATELET COUNT, AUTOMATED 206 10^3/uL (150-450); RED CELL DISTRIBUTION WIDTH 12.5 % (11.5-14.5); WHITE BLOOD COUNT 7.1 10^3/uL (4.0-10.0)
[2017-04-04] MEDS ORDERED: GASTROGRAFIN SOLUTION 30ML PO ONE (07:45)
[2017-04-04 07:48] LABS: ALBUMIN 3.5 GM/DL (3.2-5.2); ALBUMIN/GLOBULIN RATIO 0.97 (1.00-1.93); ALKALINE PHOSPHATASE 67 U/L (45-117); ALT/SGPT 46 U/L (12-78); ANION GAP 5 MEQ/L (8-16); AST/SGOT 31 U/L (15-37); BILIRUBIN,DIRECT 0.2 MG/DL (0.0-0.2); BLOOD UREA NITROGEN 16 MG/DL (7-18); CALCIUM LEVEL 9.1 MG/DL (8.5-10.1); CARBON DIOXIDE LEVEL 30 MEQ/L (21-32); CHLORIDE LEVEL 103 MEQ/L (98-107); CREATININE FOR GFR 1.15 MG/DL (0.70-1.30); GLOMERULAR FILTRATION RATE > 60.0 (>60); GLUCOSE, FASTING 108 MG/DL (70-105); POTASSIUM SERUM 3.6 MEQ/L (3.5-5.1); SODIUM LEVEL 138 MEQ/L (136-145); TOTAL PROTEIN 7.1 GM/DL (6.4-8.2)
[2017-04-04] MEDS ORDERED: GASTROGRAFIN SOLUTION 30ML (Q9963) PO ONE (08:15)
--- NOTE | 2017-04-04 08:20 | ECGEPIP ---
Stationary ECG Study [facility] - ED Test Date: 2017-04-04 Pat Name: ANTHONY ARIAS Department: Room: - Gender: M Voice Over Announcer: : 1970 Requested By: CECY Atwood PA-C Order Number: [id number] Reading MD: Nimisha Pereira Measurements Intervals [place] Rate: 74 P: 29 NC: 225 QRS: -60 QRSD: 126 T: 56 QT: 396 QTc: 441 Interpretive Statements SINUS RHYTHM WITH FIRST DEGREE AV BLOCK LEFT ANTERIOR FASCICULAR BLOCK PRWP NSTTW ABNORMALITY SIMILAR 02/20/17 Electronically Signed On 04-04-2017 8:20:31 EDT by Nimisha Pereira
[2017-04-04 08:37] VITALS: BP 132/83
[2017-04-04] MEDS ORDERED: ISOVUE-370 76% 100ML VIAL (Q9967) As Ordered ONE (08:59)
--- NOTE | 2017-04-04 10:11 | REP ---
CT ABDOMEN AND PELVIS WITH ORAL AND IV CONTRAST: TECHNIQUE: Axial contrast enhanced images from the lung bases to the pubic symphysis using 100 mL Isovue 370 intravenous contrast material with multiplanar reformations. COMPARISON: 02/21/2017. Visualized lung bases demonstrate mild fibroatelectatic change with stable small nodular opacities bilaterally. There is diffuse fatty infiltration of the liver. There appears to be tiny gallstones in the gallbladder. The spleen, adrenals, pancreas, and kidneys appear unremarkable. There is no hydronephrosis. There is no abdominal aortic aneurysm. There is no adenopathy. There is no free air or free fluid. There is no bowel wall thickening. There is an anterior abdominal wall hernia inferiorly containing fat and nondilated small bowel. The hernia previously only contained fat. There is no bowel obstruction. There is no free air or free fluid. There is no pelvic mass. The urinary bladder is grossly unremarkable. There is a small right inguinal hernia containing fat. IMPRESSION: Anterior abdominal hernia inferiorly contains fat and nondilated bowel. There is no bowel obstruction. No free air or free fluid. No other acute finding. Signed by Ovidio Haley MD 04/04/2017 05:33 P
[2017-04-04] MEDS ORDERED: TYLE325T5 PO (10:30)
[2017-04-04] MEDS ORDERED: IBUP-1022 PO (10:30)
[2017-04-05] MEDS ORDERED: AUGM875T28 PO (21:49)
== END 2017-04-04 11:10 | disposition home or self-care (01) ==
LOC: M ED 06:40
DX: K43.9 Ventral hernia without obstruction or gangrene (principal); R94.31 Abnormal electrocardiogram [ECG] [EKG]; Z79.899 Other long term (current) drug therapy
CPT/HCPCS: 36415; 74177; 80048; 80076; 82550; 82553; 83690; 85025; 93000; 96374; 96375; 99284; J2405; Q9963; Q9967

== ENCOUNTER 2017-04-05 19:10 | Emergency (ER) | payer OTHER ==
[~2017-04-05] VITALS: Ht 193 cm; Wt 152.3 kg
[~2017-04-05 19:10] MED LIST changes: +IBUP-1022 PO; +TYLE325T5 PO
[2017-04-05] MEDS ORDERED: AUGMENTIN 875 MG TAB PO ONE (21:15)
[2017-04-05] MEDS ORDERED: ADACEL/BOOSTRIX VACCINE (DIPHTH/PERTUSS/ACELL/TETANUS)0.5ML SYR (90715) IM ONE (21:30)
[2017-04-05 21:47] VITALS: BP 135/85
[2017-04-05] MEDS ORDERED: AUGM875T28 PO (21:49)
== END 2017-04-05 22:09 | disposition home or self-care (01) ==
LOC: M ED 19:10
DX: S61.451A Open bite of right hand, initial encounter (principal); W54.0XXA Bitten by dog, initial encounter; Y92.099 Unspecified place in other non-institutional residence as the place of occurrence of the external cause; Y93.89 Activity, other specified; Y99.9 Unspecified external cause status; I10 Essential (primary) hypertension; J45.909 Unspecified asthma, uncomplicated; Z79.899 Other long term (current) drug therapy

== ENCOUNTER → 2017-04-08 | Outpatient (REF) | payer OTHER ==
[~2017-04-08] MED LIST changes: +AUGM875T28 PO
== END ==
LOC: M SFHCPLAZ 11:06
PROVIDERS: ATTEND Family Medicine
DX: E66.01 Morbid (severe) obesity due to excess calories (principal)

== ENCOUNTER → 2017-05-21 | Outpatient (REF) ==
--- NOTE | 2017-05-22 07:11 | REP ---
LEFT KNEE: CLINICAL: Pain and disability. TECHNIQUE: AP, lateral, bilateral oblique and sunrise views of the left knee. FINDINGS: Moderate to early advanced tricompartmental osteoarthritic changes are appreciated. Findings include subchondral sclerosis, marginal spurring/early osteophyte formation, cortical irregularity as well as patellofemoral and tibiofemoral joint space narrowing. No acute fracture or dislocation. No obvious effusion. IMPRESSION: Moderate to early advanced tricompartmental arthritic changes. Signed by Donnie Tucker MD 05/26/2017 11:56 P
== END ==
LOC: M SMT 13:30
PROVIDERS: ATTEND Internal Medicine
DX: M17.12 Unilateral primary osteoarthritis, left knee (principal); M25.562 Pain in left knee

== ENCOUNTER 2017-05-29 06:07 | Day surgery (SDC) | payer OTHER ==
[2017-05-29] MEDS ORDERED: MIDAZOLAM INJ 2 MG/2 ML VIAL (J2250) As Ordered ×2 (07:16)
[2017-05-29] MEDS ORDERED: ROCURONIUM BROMIDE 50 MG/5 ML VIAL As Ordered ×4 (07:16→10:31)
[2017-05-29] MEDS ORDERED: PROPOFOL 200 MG/20 ML VIAL As Ordered ×2 (07:16)
[2017-05-29] MEDS ORDERED: fentaNYL 250 MCG/5 ML INJECTION (J3010) As Ordered ×4 (07:16→09:52)
[2017-05-29] MEDS ORDERED: KETOROLAC 60 MG/2 ML VIAL (J1885) As Ordered ×2 (08:31)
[2017-05-29] MEDS ORDERED: ONDANSETRON 4MG/2ML VIAL (J2405) As Ordered ×2 (08:31)
[2017-05-29] MEDS ORDERED: GLYCOPYRROLATE INJ 0.2 MG/ML 2 ML VIAL As Ordered ×2 (08:31)
[2017-05-29] MEDS ORDERED: dexameTHASONE 4 MG/ML 1ML VIAL (J1100) As Ordered ×2 (08:31)
[2017-05-29] MEDS ORDERED: NEOSTIGMINE 10 MG/10 ML VIAL (J2710) As Ordered ×2 (08:31)
[2017-05-29] MEDS ORDERED: METOCLOPRAMIDE INJ 10MG/2ML VIAL (J2765) As Ordered ×2 (08:31)
[2017-05-29] MEDS ORDERED: fentaNYL 100 MCG/2 ML INJECTION (J3010) As Ordered ×2 (09:08)
[2017-05-29] MEDS ORDERED: DESFLURANE 240 ML INHALANT As Ordered ×2 (10:36)
[2017-05-29] MEDS: LIDOCAINE 1% SDV INJ 30 ML VIAL As Ordered ×2 (11:00)
[2017-05-29] MEDS: BUPIVACAINE HCL 0.25% 30 ML VIAL As Ordered ×2 (11:00)
[2017-05-29] MEDS ORDERED: NORCO, ANEXSIA 5/325MG TABLET (HYDROcodone/ACETAMINOPHEN) PO ×4 (11:30)
[2017-05-29] MEDS ORDERED: METOCLOPRAMIDE INJ 10MG/2ML VIAL (J2765) IV ×2 (11:30)
[2017-05-29] MEDS ORDERED: ONDANSETRON 4MG/2ML VIAL (J2405) IV ×2 (11:30)
[2017-05-29] MEDS ORDERED: LR 1,000 ML IV ×2 (11:30)
[2017-05-29] MEDS: fentaNYL 100 MCG/2 ML INJECTION (J3010) IV ×6 (11:51→12:01)
[2017-05-29] MEDS: PERCOCET 5MG/325MG TAB PO ×2 (11:59)
[2017-05-29] MEDS: ONDANSETRON 4MG/2ML VIAL (J2405) IV ×2 (13:01)
[2017-05-29] MEDS ORDERED: KETOROLAC 30 MG/ML VIAL (J1885) IV ×2 (14:30)
== END 2017-05-29 14:30 | disposition home or self-care (01) ==
LOC: M SDC 06:07
DX: K43.2 Incisional hernia without obstruction or gangrene (principal); J45.909 Unspecified asthma, uncomplicated; I10 Essential (primary) hypertension; G43.909 Migraine, unspecified, not intractable, without status migrainosus; M25.572 Pain in left ankle and joints of left foot; E78.00 Pure hypercholesterolemia, unspecified; F32.9 Major depressive disorder, single episode, unspecified; K21.9 Gastro-esophageal reflux disease without esophagitis; K40.90 Unilateral inguinal hernia, without obstruction or gangrene, not specified as recurrent; E66.01 Morbid (severe) obesity due to excess calories; Z79.899 Other long term (current) drug therapy; Z79.51 Long term (current) use of inhaled steroids; Z79.1 Long term (current) use of non-steroidal anti-inflammatories (NSAID)
CPT/HCPCS: 49654

== ENCOUNTER → 2017-06-18 | Outpatient (REF) | payer OTHER ==
[2017-06-18 18:19] LABS: BASO # 0.1 10^3/uL (0.0-0.2); BASO % 0.6 % (0.0-1.0); EOS # 0.6 10^3/uL (0.0-0.50); EOS % 6.8 % (0.0-3.0); HEMATOCRIT 44.8 % (42.0-52.0); HEMOGLOBIN 14.5 g/dl (14.0-18.0); IMMATURE GRANULOCYTE % 0.2 % (0-0); LYMPH # 1.7 10^3/uL (1.5-4.5); LYMPH % 20.9 % (24.0-44.0); MEAN CORPUSCULAR HEMOGLOBIN 28.5 pg (27.0-33.0); MEAN CORPUSCULAR HGB CONC 32.4 g/dl (32.0-36.5); MONO # 0.9 10^3/uL (0.0-0.8); MONO % 11.3 % (0.0-5.0); NEUTROPHILS % 60.2 % (36.0-66.0); PLATELET COUNT, AUTOMATED 353 10^3/uL (150-450); RED BLOOD COUNT 5.09 10^6/uL (4.30-6.10); RED CELL DISTRIBUTION WIDTH 12.4 % (11.5-14.5); WHITE BLOOD COUNT 8.3 10^3/uL (4.0-10.0)
== END ==
LOC: M SFHCPLAZ 15:33
DX: J06.9 Acute upper respiratory infection, unspecified (principal)

== ENCOUNTER 2017-09-08 12:42 | Emergency (ER) | payer OTHER, MEDICAID | END 2017-09-08 12:56 | disposition home or self-care (01) | LOC: M ED 12:42 | DX: S46.811A Strain of other muscles, fascia and tendons at shoulder and upper arm level, right arm, initial encounter (principal); S46.812A Strain of other muscles, fascia and tendons at shoulder and upper arm level, left arm, initial encounter; X50.0XXA Overexertion from strenuous movement or load, initial encounter; Y92.89 Other specified places as the place of occurrence of the external cause; J45.909 Unspecified asthma, uncomplicated; I10 Essential (primary) hypertension; K21.9 Gastro-esophageal reflux disease without esophagitis; G47.30 Sleep apnea, unspecified; F33.9 Major depressive disorder, recurrent, unspecified; F17.210 Nicotine dependence, cigarettes, uncomplicated; Z79.899 Other long term (current) drug therapy; Z79.51 Long term (current) use of inhaled steroids; Z98.890 Other specified postprocedural states; Z86.69 Personal history of other diseases of the nervous system and sense organs | CPT/HCPCS: 99282 ==

== ENCOUNTER → 2018-01-07 | Outpatient (REF) | payer MEDICAID ==
[2018-01-07 16:14] LABS: ESTIMATED AVERAGE GLUCOSE 137 MG/DL (60-110); HEMOGLOBIN A1c 6.4 %
== END ==
LOC: M SFHCPLAZ 11:55
DX: E66.01 Morbid (severe) obesity due to excess calories (principal)

== ENCOUNTER 2018-03-04 17:50 | Emergency (ER) | payer MEDICARE, OTHER, MEDICAID ==
[2018-03-04 19:51] LABS: BASO # 0.1 10^3/uL (0.0-0.2); BASO % 0.8 % (0.0-1.0); EOS # 0.2 10^3/uL (0.0-0.50); EOS % 2.5 % (0.0-3.0); HEMATOCRIT 44.5 % (42.0-52.0); HEMOGLOBIN 14.8 g/dl (13.5-17.5); IMMATURE GRANULOCYTE % 0.3 % (0-3.0); LYMPH # 2.9 10^3/uL (1.5-4.5); LYMPH % 33.1 % (24.0-44.0); MEAN CORPUSCULAR HEMOGLOBIN 29.8 pg (27.0-33.0); MEAN CORPUSCULAR HGB CONC 33.3 g/dl (32.0-36.5); MEAN CORPUSCULAR VOLUME 89.7 fl (80.0-96.0); MONO # 0.7 10^3/uL (0.0-0.8); MONO % 8.3 % (0.0-5.0); NEUTROPHILS # 4.8 10^3/uL (1.8-7.7); PLATELET COUNT, AUTOMATED 204 10^3/uL (150-450); RED BLOOD COUNT 4.96 10^6/uL (4.30-6.10); RED CELL DISTRIBUTION WIDTH 13.1 % (11.5-14.5); WHITE BLOOD COUNT 8.7 10^3/uL (4.0-10.0)
[2018-03-04 19:53] LABS: KETONE, URINE AUTO RFX NEGATIVE (NEGATIVE); LEUKOCYTE ESTERASE UR AUTO RFX NEGATIVE (NEGATIVE); NITRITE, URINE AUTO RFX NEGATIVE (NEGATIVE); RBC, URINE AUTO RFX 0 /HPF (0-3); SPECIFIC GRAVITY UR AUTO RFX 1.028 (1.002-1.035); SQUAM EPITHELIAL CELL UR AURFX 1 /HPF (0-6); WBC, URINE AUTO RFX 1 /HPF (0-3)
[2018-03-04] MEDS: NS 1,000 ML IV (19:53)
[2018-03-04] MEDS: ONDANSETRON 4MG/2ML VIAL (J2405) IV (19:53)
[2018-03-04] MEDS: KETOROLAC 30 MG/ML VIAL (J1885) IV (19:54)
[2018-03-04 20:15] LABS: LACTIC ACID SEPSIS PROTOCOL 1.9 MMOL/L (0.4-2.0)
[2018-03-04 20:17] LABS: ALBUMIN 3.7 GM/DL (3.2-5.2); ALBUMIN/GLOBULIN RATIO 1.06 (1.00-1.93); ALKALINE PHOSPHATASE 63 U/L (45-117); ALT/SGPT 42 U/L (12-78); AMYLASE 36 U/L (25-115); ANION GAP 13 MEQ/L (8-16); AST/SGOT 27 U/L (7-37); BILIRUBIN,DIRECT 0.2 MG/DL (0.0-0.2); BILIRUBIN,TOTAL 0.8 MG/DL (0.2-1.0); BLOOD UREA NITROGEN 20 MG/DL (7-18); CALCIUM LEVEL 9.3 MG/DL (8.5-10.1); CARBON DIOXIDE LEVEL 26 MEQ/L (21-32); CHLORIDE LEVEL 102 MEQ/L (98-107); CPK CREATINE PHOSPHOKINASE 278 U/L (39-308); CREATININE FOR GFR 1.17 MG/DL (0.70-1.30); GLOMERULAR FILTRATION RATE > 60.0 (>60); GLUCOSE, FASTING 105 MG/DL (70-100); LIPASE 237 U/L (73-393); MB/CK RELATIVE INDEX 0.68 (< OR =4); POTASSIUM SERUM 3.6 MEQ/L (3.5-5.1); SODIUM LEVEL 141 MEQ/L (136-145); TOTAL PROTEIN 7.2 GM/DL (6.4-8.2); TROPONIN I < 0.02 NG/ML (< 0.10)
[2018-03-04] MEDS: NORCO, ANEXSIA 5/325MG TABLET (HYDROcodone/ACETAMINOPHEN) PO (21:27)
== END 2018-03-04 21:34 | disposition home or self-care (01) ==
LOC: M ED 17:50
DX: R10.11 Right upper quadrant pain (principal); I10 Essential (primary) hypertension; E78.5 Hyperlipidemia, unspecified
CPT/HCPCS: J2405

== ENCOUNTER → 2018-03-11 | Outpatient (REF) | payer OTHER | LOC: M SFHCPLAZ 11:48 | DX: R39.9 Unspecified symptoms and signs involving the genitourinary system (principal) ==

== ENCOUNTER → 2018-03-13 | Outpatient (REF) | payer MEDICARE, OTHER ==
[2018-03-13 12:56] LABS: ESTIMATED AVERAGE GLUCOSE 126 MG/DL (60-110)
[2018-03-13 13:12] LABS: PSA SCREENING 0.93 NG/ML (< 4.0)
== END ==
LOC: M SFHCPLAZ 11:03
DX: R39.9 Unspecified symptoms and signs involving the genitourinary system (principal); R73.03 Prediabetes; Z12.5 Encounter for screening for malignant neoplasm of prostate
CPT/HCPCS: 83036

== ENCOUNTER 2018-04-13 20:59 | Emergency (ER) | payer MEDICARE, OTHER ==
[2018-04-13] MEDS: NS 1,000 ML IV (21:30)
[2018-04-13] MEDS: MORPHINE 4 MG/ML 1ML VIAL/SYRINGE (J2270) IV (21:30)
[2018-04-13] MEDS: ONDANSETRON 4MG/2ML VIAL (J2405) IV (21:30)
[2018-04-13 21:38] LABS: BASO # 0.1 10^3/uL (0.0-0.2); BASO % 0.6 % (0.0-1.0); EOS # 0.4 10^3/uL (0.0-0.50); EOS % 4.8 % (0.0-3.0); HEMATOCRIT 43.5 % (42.0-52.0); HEMOGLOBIN 14.5 g/dl (13.5-17.5); IMMATURE GRANULOCYTE % 0.2 % (0-3.0); LYMPH # 2.2 10^3/uL (1.5-4.5); LYMPH % 26.8 % (24.0-44.0); MEAN CORPUSCULAR HEMOGLOBIN 30.2 pg (27.0-33.0); MEAN CORPUSCULAR HGB CONC 33.3 g/dl (32.0-36.5); MEAN CORPUSCULAR VOLUME 90.6 fl (80.0-96.0); MONO # 0.6 10^3/uL (0.0-0.8); MONO % 7.9 % (0.0-5.0); NEUTROPHILS # 4.8 10^3/uL (1.8-7.7); NEUTROPHILS % 59.7 % (36.0-66.0); PLATELET COUNT, AUTOMATED 190 10^3/uL (150-450); RED CELL DISTRIBUTION WIDTH 12.5 % (11.5-14.5); WHITE BLOOD COUNT 8.1 10^3/uL (4.0-10.0)
[2018-04-13] MEDS: HYDROMORPHONE HCL 0.5 MG/ 0.5 ML SYRINGE (J1170 PER 1) IV (21:48)
[2018-04-13 22:09] LABS: LACTIC ACID SEPSIS PROTOCOL 0.9 MMOL/L (0.4-2.0)
[2018-04-13 22:09] LABS: ALBUMIN 3.8 GM/DL (3.2-5.2); ALBUMIN/GLOBULIN RATIO 1.36 (1.00-1.93); ALKALINE PHOSPHATASE 61 U/L (45-117); ALT/SGPT 42 U/L (12-78); ANION GAP 9 MEQ/L (8-16); AST/SGOT 27 U/L (7-37); BILIRUBIN,TOTAL 0.9 MG/DL (0.2-1.0); BLOOD UREA NITROGEN 19 MG/DL (7-18); C REACTIVE PROTEIN QUANTITATIV 0.42 MG/DL (0.00-0.30); CALCIUM LEVEL 8.8 MG/DL (8.5-10.1); CARBON DIOXIDE LEVEL 31 MEQ/L (21-32); CHLORIDE LEVEL 102 MEQ/L (98-107); CREATININE FOR GFR 1.19 MG/DL (0.70-1.30); GLOMERULAR FILTRATION RATE > 60.0 (>60); GLUCOSE, FASTING 86 MG/DL (70-100); LIPASE 244 U/L (73-393); POTASSIUM SERUM 3.4 MEQ/L (3.5-5.1); SODIUM LEVEL 142 MEQ/L (136-145); TOTAL PROTEIN 6.6 GM/DL (6.4-8.2)
[2018-04-13] MEDS ORDERED: ISOVUE-370 76% 100ML VIAL (Q9967) As Ordered (22:13)
== END 2018-04-13 23:46 | disposition home or self-care (01) ==
LOC: M ED 20:59
DX: K43.6 Other and unspecified ventral hernia with obstruction, without gangrene (principal); R11.0 Nausea; I10 Essential (primary) hypertension; G47.33 Obstructive sleep apnea (adult) (pediatric); F32.9 Major depressive disorder, single episode, unspecified; Z79.899 Other long term (current) drug therapy; Z79.51 Long term (current) use of inhaled steroids; Z87.19 Personal history of other diseases of the digestive system
CPT/HCPCS: J2270

== ENCOUNTER → 2018-08-29 | Outpatient (CLI) | payer MEDICARE, MEDICAID ==
[~2018-08-29] MED LIST changes: +DEPA1TAB3 PO; +IBUP-1114 PO; +MELO15TA28; -MELO15TA4; +NAPR-50 PO; +ZOFR4TAB14 PO
[2018-08-29 12:02] LABS: HEMOGLOBIN A1c 5.8 %
[2018-08-29 12:10] LABS: ALBUMIN 3.9 GM/DL (3.2-5.2); ALT/SGPT 41 U/L (12-78); BILIRUBIN,TOTAL 0.7 MG/DL (0.2-1.0); BLOOD UREA NITROGEN 23 MG/DL (7-18); CALCIUM LEVEL 9.5 MG/DL (8.5-10.1); CARBON DIOXIDE LEVEL 29 MEQ/L (21-32); CHLORIDE LEVEL 105 MEQ/L (98-107); CHOLESTEROL LEVEL 132 MG/DL (<200); CHOLESTEROL RISK RATIO 3.666 (<5); GLOMERULAR FILTRATION RATE > 60.0 (>60); GLUCOSE, FASTING 86 MG/DL (70-100); HDL CHOLESTEROL 36 MG/DL (>40); LDL CHOLESTEROL 68 MG/DL (<100); NON-HDL-C 96 MG/DL; POTASSIUM SERUM 3.6 MEQ/L (3.5-5.1); SODIUM LEVEL 140 MEQ/L (136-145); TOTAL PROTEIN 6.7 GM/DL (6.4-8.2); TRIGLYCERIDES LEVEL 141 MG/DL (<150)
== END ==
LOC: M LAB 10:49
PROVIDERS: ATTEND Family Medicine
DX: K76.0 Fatty (change of) liver, not elsewhere classified (principal); R73.03 Prediabetes; E78.49 Other hyperlipidemia

== ENCOUNTER 2018-10-04 09:44 | Emergency (ER) | payer MEDICARE, MEDICAID ==
[~2018-10-04] VITALS: Ht 193 cm; Wt 126.4 kg
[~2018-10-04 09:44] MED LIST changes: +HYDR-3715 PO; -NAPR-50 PO; +NAPR-837 PO; -NORCOTAB PO
[2018-10-04] MEDS ORDERED: KETOROLAC 30 MG/ML VIAL (J1885) IV ONE (10:30)
[2018-10-04] MEDS ORDERED: ONDANSETRON 4MG/2ML VIAL (J2405) IV ONE (10:30)
[2018-10-04 10:33] LABS: BASO % 0.5 % (0.0-1.0); EOS # 0.2 10^3/uL (0.0-0.50); EOS % 2.5 % (0.0-3.0); HEMATOCRIT 44.9 % (42.0-52.0); LYMPH # 2.3 10^3/uL (1.5-4.5); LYMPH % 29.7 % (24.0-44.0); MEAN CORPUSCULAR HEMOGLOBIN 29.5 pg (27.0-33.0); MEAN CORPUSCULAR HGB CONC 33.4 g/dl (32.0-36.5); MEAN CORPUSCULAR VOLUME 88.4 fl (80.0-96.0); MONO # 0.6 10^3/uL (0.0-0.8); MONO % 7.8 % (0.0-5.0); NEUTROPHILS # 4.5 10^3/uL (1.8-7.7); NEUTROPHILS % 59.2 % (36.0-66.0); PLATELET COUNT, AUTOMATED 214 10^3/uL (150-450); RED BLOOD COUNT 5.08 10^6/uL (4.30-6.10); WHITE BLOOD COUNT 7.6 10^3/uL (4.0-10.0)
[2018-10-04 11:00] LABS: ALBUMIN 4.1 GM/DL (3.2-5.2); ALT/SGPT 21 U/L (12-78); BILIRUBIN,DIRECT 0.1 MG/DL (0.0-0.2); BILIRUBIN,TOTAL 0.6 MG/DL (0.2-1.0); BLOOD UREA NITROGEN 21 MG/DL (7-18); CALCIUM LEVEL 9.2 MG/DL (8.5-10.1); CARBON DIOXIDE LEVEL 26 MEQ/L (21-32); CHLORIDE LEVEL 106 MEQ/L (98-107); CREATININE FOR GFR 1.23 MG/DL (0.70-1.30); GLOMERULAR FILTRATION RATE > 60.0 (>60); GLUCOSE, FASTING 90 MG/DL (70-100); LIPASE 251 U/L (73-393); POTASSIUM SERUM 3.6 MEQ/L (3.5-5.1); SODIUM LEVEL 141 MEQ/L (136-145); TOTAL PROTEIN 7.2 GM/DL (6.4-8.2)
[2018-10-04] MEDS ORDERED: ONDANSETRON 4 MG ORAL DISINTEGRATING TAB (Q0162 PER 1MG) PO ONE (11:00)
[2018-10-04] MEDS ORDERED: ACETAMINOPHEN TAB 650MG DOSE (2X325MG) PO ONE (11:00)
[2018-10-04] MEDS ORDERED: GASTROGRAFIN SOLUTION 30ML (Q9963) As Ordered ONE (11:02)
[2018-10-04] MEDS ORDERED: MORPHINE 2 MG/ML 1ML SYRINGE (J2270) IV ONE (11:15)
[2018-10-04] MEDS: GASTROGRAFIN SOLUTION 30ML PO SCH ×2 (11:17→11:33)
[2018-10-04] MEDS ORDERED: ISOVUE-370 76% 100ML VIAL (Q9967) As Ordered ONE (12:25)
[2018-10-04] MEDS ORDERED: NORC1TAB7 PO ×2 (16:03→16:12)
[2018-10-04 16:13] VITALS: BP 115/78
--- NOTE | 2018-10-05 09:12 | REP ---
Acute abdominal series three views including PA chest and supine upright abdomen: PA chest: Comparison is 06/18/2013. Lung glass are clear. Cardiac size is normal. The jenny, mediastinum, skeletal structures are unremarkable. There is no free subdiaphragmatic air. Impression: Negative PA chest. Abdomen, supine upright views: There are no comparisons. The bowel gas pattern is normal. There are no calcifications. Skeletal structures and soft tissues otherwise are unremarkable. Impression: Normal bowel gas pattern. Electronically Signed by Ovidio Broussard MD 10/04/2018 11:25 A
--- NOTE | 2018-10-05 09:15 | REP ---
CT of the abdomen and pelvis with bowel contrast and IV contrast: Comparison is 04/13/2018. The patient has a known ventral hernia. The hernia is again identified today. The hernia is in the midline just above the umbilicus. The hernia defect measures 7.3 cm in diameter. The hernia sac measures 19 cm in diameter. There are two independent small bowel loops within the hernia sac. The more proximal small bowel loop contains dilated loops of small bowel measuring up to 3.6 cm in diameter. The more distal loop contains nondilated loop of small bowel. Intra-abdominally there is intraluminal contrast and proximal small bowel loops. These proximal small bowel loops are dilated measuring up to 3.2 cm in diameter. Distal to the hernia. The small bowel loops are nondilated and do not contain bowel contrast. The findings are compatible with obstruction or at least partial obstruction of the small bowel at the hernia. There is no ascites. There is no pneumoperitoneum. The visualized lung glass are unremarkable. The hepatic parenchyma, gallbladder, pancreas, spleen, adrenals, abdominal aorta are unremarkable. The colon is unremarkable. Pelvis: There is no ascites or adenopathy. The bladder is unremarkable. The pelvic bowel loops are unremarkable. Impression: There is a midline ventral hernia above the umbilicus containing to sever small bowel loops. The more proximal small bowel loop contains dilated ball and the more distal small bowel loop contains nondilated small bowel. Intra abdominally the proximal small bowel loops are dilated in the distal small bowel loops are nondilated. There is intraluminal contrast in the proximal small bowel loops. There is no contrast in the distal small bowel loops. Findings are compatible with obstruction or at least partial obstruction at the hernia. Sign taking Electronically Signed by Ovidio Broussard MD 10/04/2018 01:27 P
--- NOTE | 2018-10-05 10:01 | ER ---
DATE OF CONSULTATION: 10/04/2018 REASON FOR CONSULTATION: Recurrent ventral incisional hernia. HISTORY OF PRESENT ILLNESS: The patient is a 47-year-old man who is being followed by Dr. Gonzalez in the surgical clinic for a recurrent ventral incisional hernia. The patient had undergone an umbilical hernia repair many years ago in [facility]. Apparently this had been some sort of mesh plug repair of a small umbilical hernia. In 2009, he underwent repair of a recurrent hernia by Dr. Polanco utilizing prosthetic mesh. Unfortunately, he developed another recurrence and in May 2017, Dr. Gonzalez performed a robotic-assisted laparoscopic repair of his hernia. He described finding several fascial defects and placed a prosthetic patch over these intra-abdominally. By February of 2018, it was clear that he had a recurrence and Dr. Gonzalez recommended that the patient lose weight prior to coming back for a repair of his recurrence. The patient has actually done a wonderful job losing weight and reports that he has lost about 70-80 pounds. He has only 7 or 8 more pounds to lose to get down to the target weight. He has noted over the last 3 weeks or so that he is having more pain in his hernia. This is intermittent. There are occasional days when he has little pain and then other days where he has much more discomfort. Typically the pain is worse when his hernia is protruding, and he has more sharp pains and radiation into his upper abdomen. He has not developed any nausea or vomiting and has been able to eat and is having bowel movements. Today he presented to the emergency department with the hernia protruding. He underwent evaluation with some laboratory studies and then had a CT scan of the abdomen and pelvis obtained. I was asked to see the patient after the CT scan was interpreted as suggesting a partial obstruction of the small intestine at the level of the hernia. ALLERGIES: The patient has no known drug allergies. His current medications include albuterol nebulizer two puffs four times a day as needed for shortness of breath, atorvastatin 40 mg by mouth nightly, chlorthalidone 12.5 mg by mouth daily, Depakote 500 mg by mouth nightly, Colace 100 mg by mouth twice daily as needed for constipation, Breo Ellipta inhaler, simethicone 125 mg by mouth four times daily as needed for bloating, and he has been taking some Tylenol and ibuprofen for his hernia pain. SURGICAL HISTORY: The patient had undergone surgery last September2017 for an ankle issue on the left and has been quite limited by this surgery. He had his three prior repairs of ventral hernias as outlined in the history of the present illness. He had a left knee meniscus procedure. He has had a drainage of his right index finger for an infection. MEDICAL HISTORY: Significant for asthma. He reports a history of hypercholesterolemia. He has had some gastroesophageal reflux as well as migraine headaches and hypertension. He reports that with his weight loss, his hypertension has been much better. SOCIAL HISTORY: The patient is . 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 He is currently off work largely due to his ankle surgery. The patient does not smoke and denies excessive alcohol intake. FAMILY HISTORY: Noncontributory. REVIEW OF SYSTEMS: Reveals no history of chest pain or palpitations. He has no shortness of breath, wheezing or cough at this point. He denies any dysuria or hematuria. He has had no nausea or vomiting. He denies any melena or hematochezia. He is not having any new bone or joint issues. He has had no history of deep vein thrombosis (DVT) or pulmonary embolus. PHYSICAL EXAM: Reveals a pleasant man lying quietly on the emergency room (ER) stretcher. He is somewhat overweight but not morbidly obese. His weight as recorded in the emergency department record is 126 kg with a height of 6 feet 4 inches. His most recent vital signs showed a temperature of 97.1 with a pulse of 62 and blood pressure of 115/78. The patient is alert, oriented and cooperative. Sclerae are anicteric. Skin: Warm and dry. Neck is supple without mass. Heart exam shows a regular rate and rhythm. The lungs are clear. Abdomen is mildly protuberant centrally. He has a scar by the umbilicus about 4 cm in length. There is a bilobed bulge just above the level of the umbilicus. The abdomen is soft. With gentle pressure and massage, the portion of the hernia protruding to the left of the midline is apparently completely reduced. Likewise with gentle pressure and massage, the portion of the hernia protruding to the right also seems to have been completely reduced. There is a little induration right below his scar, and I cannot tell if there is a small portion of the hernia that remains incarcerated there, but this is nontender. He does have active bowel sounds. Laboratory studies show a white count of 8, hemoglobin of 15, hematocrit of 45 and a platelet count of 214,000. Differential count is normal. Chemistry profile shows normal electrolytes, a BUN of 21, creatinine 1.2 and a glucose of 90. Liver function tests are normal as is a lipase and his lactic acid is 0.9. IMAGING STUDIES: He had a CT scan of the abdomen and pelvis. This was interpreted as showing a hernia containing loops of small bowel. The caliber of the small bowel proximal to the hernia was somewhat larger than the caliber distal to the hernia. There is no inflammatory change identified in the bowel within the hernia. The hernia itself is about 9 x 6 cm in size, and there appears to be a bilobed or even trilobed protrusion each containing a portion of bowel. I cannot see where the prior mesh is located. There is no free air and no free fluid within the abdomen. IMPRESSION: The patient has a recurrent ventral hernia, which Dr. Gonzalez has been planning to repair. Over the last few weeks, it has become more painful more persistently, which is no longer controlled by Tylenol and ibuprofen. However, his hernia today is reducible, though I cannot be absolutely certain that it is completely reducible. The hernia itself is certainly not tender to palpation suggesting incarceration or strangulation. He does not have signs of a persistent obstruction. RECOMMENDATIONS: At this point, I would recommend that the patient be discharged home. I have recommended that we provide him with some Thaxton to take on an as-needed basis when the pain becomes more severe. On those occasions when he can get by with Tylenol or ibuprofen or nothing, he should try to avoid using the Thaxton. I have recommended to him that he contact our office this coming 10/06/2018, to arrange an appointment with Dr. Gonzalez to consider proceeding with his hernia repair. I advised him that I will contact Dr. Gonzalez as well to indicate that he was in the emergency department and that I think he is approaching a point where he really should have his hernia repaired. I advised him that if he develops signs of a persistent obstruction such as severe pain with nausea and vomiting, and an inability to reduce the hernia, that he should return immediately and we can proceed with urgent surgery if necessary. The patient had an opportunity to ask questions, and these were answered to the best my ability.
--- NOTE | 2018-10-06 08:09 | ED PDOC ---
Post-Departure Follow-Up dr holguin and dr eileen huang faxed formal report of ct abd/p for fu Marry Nunez MD Oct 06, 2018 08:09
== END 2018-10-04 16:22 | disposition home or self-care (01) ==
LOC: M ED 09:44
DX: K43.9 Ventral hernia without obstruction or gangrene (principal); I10 Essential (primary) hypertension; E78.00 Pure hypercholesterolemia, unspecified; G43.909 Migraine, unspecified, not intractable, without status migrainosus; J45.909 Unspecified asthma, uncomplicated; K59.00 Constipation, unspecified; Z87.19 Personal history of other diseases of the digestive system; Z79.83 Long term (current) use of bisphosphonates; Z79.899 Other long term (current) drug therapy; Z79.51 Long term (current) use of inhaled steroids
CPT/HCPCS: 74021; 74177; 80048; 80076; 81001; 83605; 83690; 85025; 87086; 96374; 96375; 99284; J1885; J2270; J2405; Q9967

== ENCOUNTER 2018-11-12 08:09 | Inpatient (IN) | payer MEDICARE, MEDICAID ==
[~2018-11-12] VITALS: Ht 193 cm; Wt 126.0 kg
[~2018-11-12 08:09] MED LIST changes: +LR 1,000 ML IV ONE; +NORC1TAB7 PO; +PROAAER10 INH
[2018-11-12] MEDS ORDERED: LIDOCAINE 2% INJ 100 MG/5 ML SDV (FOR ANES.) As Ordered ONE ×3 (08:30→13:40)
[2018-11-12] MEDS ORDERED: ROCURONIUM BROMIDE 50 MG/5 ML VIAL As Ordered ONE ×3 (08:30→13:23)
[2018-11-12] MEDS ORDERED: SUGAMMADEX SODIUM 500 MG/5 ML VIAL (BRIDION) As Ordered ONE (08:30)
[2018-11-12] MEDS ORDERED: PROPOFOL 200 MG/20 ML VIAL As Ordered ONE ×3 (08:30→15:15)
[2018-11-12] MEDS ORDERED: ONDANSETRON 4MG/2ML VIAL (J2405) As Ordered ONE ×2 (08:31→13:27)
[2018-11-12] MEDS ORDERED: fentaNYL 100 MCG/2 ML INJECTION (J3010) As Ordered ONE (08:31)
[2018-11-12] MEDS ORDERED: dexameTHASONE 4 MG/ML 1ML VIAL (J1100) As Ordered ONE (08:31)
[2018-11-12] MEDS ORDERED: PROPOFOL 500 MG/50 ML VIAL As Ordered ONE ×2 (08:32→10:58)
[2018-11-12] MEDS ORDERED: MIDAZOLAM INJ 2 MG/2 ML VIAL (J2250) As Ordered ONE (08:32)
[2018-11-12] MEDS ORDERED: KETAMINE HCL 200 MG/20 ML VIAL As Ordered ONE (08:32)
[2018-11-12] MEDS ORDERED: LIDOCAINE 1% SDV INJ 30 ML VIAL As Ordered ONE (09:35)
[2018-11-12] MEDS ORDERED: BUPIVACAINE HCL 0.25% 30 ML VIAL As Ordered ONE (09:35)
[2018-11-12] MEDS ORDERED: SCOPOLAMINE 1MG TRANSDERMAL PATCH As Ordered ONE (09:51)
[2018-11-12] MEDS ORDERED: SCOPOLAMINE 1MG TRANSDERMAL PATCH TOP ONE (10:00)
[2018-11-12] MEDS ORDERED: HYDROmorphone HCL 2 MG/ML 1ML VIAL (J1170) As Ordered ONE (10:39)
[2018-11-12] MEDS ORDERED: ceFAZolin 2 GM/D5W 50 ML IV BAG (J0690 PER 500MG) As Ordered ONE (13:33)
[2018-11-12] MEDS ORDERED: ceFAZolin 1GM INJ (J0690 PER 500MG) As Ordered ONE (13:34)
[2018-11-12] MEDS ORDERED: ALBUTEROL 6.7GM INHALER **FOR ANES. CART/OMNICELL ONLY As Ordered ONE (15:12)
[2018-11-12] MEDS ORDERED: BUPIVACAINE LIPOSOME/PF 1.3% 20ML VIAL (13.3MG/ML)(EXPAREL)(C9290 PER1MG) As Ordered ONE (16:20)
[2018-11-12] MEDS ORDERED: BUPIVACAINE HCL 0.25% 10 ML VIAL As Ordered ONE (16:20)
[2018-11-12] MEDS ORDERED: ONDANSETRON 4MG/2ML VIAL (J2405) IV PRN (17:45)
[2018-11-12] MEDS ORDERED: ALBUTEROL 90 MCG/ACT 8GM HFA INHALER INH PRN (17:45)
[2018-11-12] MEDS ORDERED: MORPHINE 4 MG/ML 1ML VIAL/SYRINGE (J2270) IV PRN (17:45)
[2018-11-12] MEDS ORDERED: PERCOCET 5MG/325MG TAB PO PRN (17:45)
[2018-11-12] MEDS: ceFAZolin SOD 1 GM in D5W MINI-BAG PLUS 50 ML IV SCH (17:45)
[2018-11-12] MEDS: PERCOCET 5MG/325MG TAB PO PRN ×2 (18:10→19:12)
[2018-11-12] MEDS: HYDROMORPHONE HCL 0.5 MG/ 0.5 ML SYRINGE (J1170 PER 1) IV PRN ×4 (18:10→18:40)
[2018-11-12] MEDS ORDERED: fentaNYL 100 MCG/2 ML INJECTION (J3010) IV PRN (18:15)
[2018-11-12] MEDS ORDERED: LR 1,000 ML IV SCH (18:15)
[2018-11-12] MEDS ORDERED: HYDROMORPHONE HCL 0.5 MG/ 0.5 ML SYRINGE (J1170 PER 1) As Ordered ONE (18:39)
[2018-11-12] MEDS ORDERED: PERCOCET 5MG/325MG TAB As Ordered ONE (19:14)
[2018-11-12 19:40] VITALS: BP 111/69
[2018-11-12 20:10] VITALS: BP 118/70
[2018-11-12 21:00] VITALS: BP 123/67
[2018-11-12] MEDS: SENOKOT S TAB PO SCH (21:20)
[2018-11-12] MEDS: ATORVASTATIN 20 MG TAB PO SCH (21:20)
[2018-11-12 22:00] VITALS: BP 124/66
[2018-11-12] MEDS: DIVALPROEX 500 MG TAB PO SCH (22:11)
[2018-11-12] MEDS: LR 1,000 ML IV SCH (22:13)
[2018-11-12] MEDS: KETOROLAC 30 MG/ML VIAL (J1885) IV PRN (22:20)
[2018-11-12 23:00] VITALS: BP 115/65
[2018-11-13] VITALS: BP 109/63
[2018-11-13] MEDS: ceFAZolin SOD 1 GM in D5W MINI-BAG PLUS 50 ML IV SCH (01:14)
[2018-11-13 06:00] VITALS: BP 119/67
[2018-11-13 06:34] LABS: BASO % 0.2 % (0.0-1.0); EOS # 0.2 10^3/uL (0.0-0.50); EOS % 2.7 % (0.0-3.0); HEMATOCRIT 36.7 % (42.0-52.0); HEMOGLOBIN 11.8 g/dl (13.5-17.5); LYMPH # 1.5 10^3/uL (1.5-4.5); LYMPH % 18.3 % (24.0-44.0); MEAN CORPUSCULAR HEMOGLOBIN 28.9 pg (27.0-33.0); MEAN CORPUSCULAR HGB CONC 32.2 g/dl (32.0-36.5); MEAN CORPUSCULAR VOLUME 89.7 fl (80.0-96.0); MONO # 0.8 10^3/uL (0.0-0.8); MONO % 9.4 % (0.0-5.0); NEUTROPHILS # 5.6 10^3/uL (1.8-7.7); NEUTROPHILS % 69.2 % (36.0-66.0); PLATELET COUNT, AUTOMATED 158 10^3/uL (150-450); RED BLOOD COUNT 4.09 10^6/uL (4.30-6.10); WHITE BLOOD COUNT 8.1 10^3/uL (4.0-10.0)
[2018-11-13 06:58] LABS: BLOOD UREA NITROGEN 21 MG/DL (7-18); CALCIUM LEVEL 7.9 MG/DL (8.5-10.1); CARBON DIOXIDE LEVEL 29 MEQ/L (21-32); CHLORIDE LEVEL 103 MEQ/L (98-107); CREATININE FOR GFR 1.22 MG/DL (0.70-1.30); GLOMERULAR FILTRATION RATE > 60.0 (>60); GLUCOSE, FASTING 86 MG/DL (70-100); SODIUM LEVEL 140 MEQ/L (136-145)
[2018-11-13] MEDS: LR 1,000 ML IV SCH ×3 (07:28→18:11)
[2018-11-13] MEDS: CHLORTHALIDONE 12.5MG PER 1/2 TABLET PO SCH (08:11)
[2018-11-13] MEDS: SENOKOT S TAB PO SCH ×2 (08:11→20:23)
[2018-11-13] MEDS: PERCOCET 5MG/325MG TAB PO PRN ×2 (08:48→20:24)
[2018-11-13] MEDS ORDERED: ENOXAPARIN 40 MG/0.4 ML SYRINGE (J1650) SC SCH (09:00)
--- NOTE | 2018-11-13 09:07 | ROOPDOC ---
[facility] Report Of Operation Report of Operation DATE OF PROCEDURE: 11/12/18 PREPROCEDURE DIAGNOSES: Recurrent incisional hernia. POSTPROCEDURE DIAGNOSES: Recurrent incisional hernia. PROCEDURE: Robotic-assisted laparoscopic repair of recurrent incisional hernia, bilateral transversus abdominis release. (Approximately 20 x 20 cm ultra pro polypropylene mesh was placed at the retrorectus space) SURGEON: Tam Gonzalez MD LABOR CONCILIATOR: Graciela Robertson NP Miss Robertson assisted me through the robotic portion of the procedure, placement of ports, management of the robotic tower, instruments and camera on the field while I was at the surgeon's console. ANESTHESIA: General anesthesia. ESTIMATED BLOOD LOSS: Approximately 200 mL. COMPLICATIONS: None. REMARKS: 47-year-old male with 3 fit previous failed hernia repairs both open and laparoscopic, previously had a BMI of 46 now a BMI of 34 presents for repair of his recurrent incisional hernia right around the umbilicus which is given him severe discomfort and has had prior transient incarceration with presentation in the emergency room. Previous CT scan shows the hernia defect that is about 7 x 5 cm and extends up to 19 cm anteriorly. PROCEDURE NOTE: Multiple adhesions were lysed. There are 2 distinct hard previous meshes or just incarcerated calcified omentum that I removed. He has had several meshes placed both above the fascia, and intraperitoneally that I removed in pieces. Bilateral transversus abdominous muscle release performed to allow for closure of the posterior wall. I used a 30 x 30 cm polypropylene mesh and trimmed it to roughly about 20 x 20 cm and placed at the retrorectus space. DESCRIPTION OF PROCEDURE: Patient was given a dose of Ancef 2 g IV for prophylactic antibiotic. This was redosed by anesthesia after 4 hours and he was given 3 g of Ancef IV at that time.. He is brought to the operating room, placed supine on the table.His left arm was tucked, the right arm placed on an arm board. All bony prominences were padded. Sequential Compression boots placed on both lower extremities for DVT prophylaxis.General endotracheal anesthesia was administered without any complication. A Valverde catheter placed for urine output monitoring. His abdomen was then prepped and draped widely in usual sterile fashion.We paused for a surgical timeout using both pre-incision safety checklist to verify correct patient, procedure site and additional clinical information prior to beginning the procedure Entry into the abdomen done through a small incision on the left upper quadrant area. The fascia was elevated and Veress needle inserted in a controlled fashion. Proper position was confirmed with a saline drop test. The abdomen was insufflated to a pressure of 15 mmHg. A 1.5 cm incision was then created at the left upper quadrant area approximately at the anterior axillary line. Under direct visualization of the laparoscope a 12 mm port was placed into the abdomen. The insertion site as well as the Veress needle location was inspected for injury and none was found. Patient was then placed in a slight right lateral decubitus position to move the bowel away from the left abdominal wall. Under direct visualization an 8 mm operative robotic trocar was placed at the left lower quadrant in the same anterior axillary line and in between this 2 ports an 8 mm robotic camera port was placed. On entering the abdomen, I immediately notice a large amount of adhesions of the omentum tethering multiple loops of small bowel and even the transverse colon to the anterior abdominal wall and through the hernia. Under direct vision 2 additional trochars were placed along the left side of the abdominal wall. The [employer] robot tower was then positioned in place to center on this trochars. The trochars were docked to the robot and the camera and instruments installed. I primarily used the forceps bipolar forceps on my left hand connected to bipolar cautery and the robotic scissors connected to a monopolar cautery. I then performed meticulous lysis of his adhesions bringing down the omentum and loops of bowel that were tethered around the hernia opening and through the hernia opening in. The whole of the anterior abdominal wall of any adhesions that may impair on the hernia repair. During this time I noted 2 distinct hardened balls about 4-5 cm in size within the omentum which I thought at that time would be the previously placed mesh that got entangled in the omentum and dropped into the abdominal cavity. This part of the procedure took me 2 hours to complete. After performing the lysis I evaluated the hernia defect dimensions. Internally this measures 8 cm vertically and up to 5 cm transversely with multiple Portuguese cheese like compartments raising the skin all ports of 10 cm. There is a previous mesh attached on the bottom part of the hernia defect which I could surmise is from my previous robotic laparoscopic repair. I could also see a different type mesh superior laterally on the right side and some hardening further down towards the umbilicus which I could surmise is probably old mesh also. With this findings a started opening up the posterior rectus sheath and start the retro-muscular dissection.. Starting at the falciform ligament this was opened up with the midline and then vertically down approaching the hernia defect until the rectus muscle is visible. Then mostly with blunt dissection the posterior sheath was dissected off from the posterior wall of the rectus muscles. I began by incising the peritoneum and entering the posterior sheath at the level of the falciform ligament extending this superiorly and inferiorly until the superior portion of the hernia defect. I then proceeded with obtaining rectal muscular dissection by incising the posterior pattie about one centimeters distal to the neck of the hernia laterally. I continued my rectal muscular dissection mostly with blunt dissection to separate the posterior sheath of the rectus muscle extending the dissection laterally to the semilunar line and proceeding inferiorly beyond the defect to the preperitoneal plane to the level of the symphysis pubis. I tested the flap to see of our I could get into past the midline. I got most of the release on the lower abdomen but less so on the upper with a lot of tension to keep it at the midline. There is a decided to continue with the transversus abdominis release. I initiated the TAR the upper portion of the rectus sheath by incising the posterior lamella of the internal oblique and dividing the transversus abdominis muscle under direct vision entering the pre-transversal space. I continued this laterally until the posterior flap is lying flat across the small bowel and omental viscera at the level of the anterior axillary line. After checking for hemostasis I then switched to the other side. The patient and the robot were repositioned for docking on the opposite side. 3 trochars were placed under direct vision into the dissected space with the trochars located pre-peritoneally now nearing the placement on the opposite side. I then proceeded with the same maneuver as the right side. There are a few more omental adhesions laterally on the upper abdomen that I released. The retro-muscular dissection again started at the level of the falciform ligament going around the hernia defect and down inferiorly to the level of symphysis pubis and extended laterally to the level of the semilunar line. I again tried to see if I could close the peritoneal flap freely without much tension and though I feel I could due to the amount of diastases in the upper abdomen there still remained some tension into it so I decided on proceeding with transversus abdominis release on the left side also. In the same fashion the posterior lamina of the rectus sheath was opened up starting at the level of the subcostal area going down towards almost the level of the anterior superior iliac spine releasing the transversus abdominis muscle from the posterior fascia and peritoneum. The previously placed trochars were brought into the preperitoneal space and dissection was continued about 2 cm beyond this area. At this point of the procedure, because of the previously identified hardened masses early onProcedure decided to perform the rest of the procedure in an open fashion. I scrubbed back in the scars from previous ventral hernia repair was excised. I entered the hernia sac and the abdomen. The previously identified hard and masses were brought into view and dissected from its attachments to the omentum. Initially I thought this may be ruled out mesh is on palpating at this may be calcified omentum. I removed to baseball size masses of this nature. I checked for adequate hemostasis and worked on removing the hernia sac and other previous mesh is that were placed as onlay and underneath the umbilicus in his previous surgeries. The one underneath the umbilicus was hardened and came out in pieces and a few more of them that was difficult to remove. Once this was performed, I then closed my posterior flap using initially 20V LOC but I was pulling through it then with 2-0 Vicryl. I then measured the space I have created for mesh placement. I chose a Chema polypropylene mesh initially 30 x 30 cm measured its to size and 90 roughly placed about 20 x 25 cm mesh. This was laid flat in the preperitoneal/retro-muscular space neck placed for t ransabdominal sutures in the corners of this transabdominally via small incision and with a Isai-Ulises device. This is to ensure that the mesh continues to lay flat. I again checked for adequate hemostasis and placed fibrin glue circumferentially at the level of the rectus both to fixate the mesh and also for hemostasis. I then left to Demarcus drains coming from both sides from the mid trocar locations on both sides of our flap in the retro-muscular space. The fascial defect was then finally closed with a running suture of 0 Stratafix barbed mesh in a running fashion. The remaining soft tissue scars and defects were trimmed for a more cosmetic closure and I closed the subcutaneous cavity with interrupted 3-0 Vicryls and then finally closed the skin with gary including those of the port sites. The transabdominal sutures were tied. The drains were sutured to skin with 2-0 nylons. Postoperative dressings were placed on the lower incision. Patient tolerated the procedure well. He remains hemodynamically stable. He was awakened and extubated and brought to recovery room stable. Counts of sponges and instruments were verified correct. TAM GONZALEZ MD November 13, 2018 09:07
--- NOTE | 2018-11-13 09:17 | IPNPDOC ---
Subjective General Date/Time Seen The patient was seen on 11/13/18 at 09:08. Subject Chief Complaint/History The patient is a 47-year-old male admitted with a reason for visit of Recurrent Incisional Hernia. Patient seen sitting up on his bed this morning. Reports pain level is adequately controlled. No acute overnight events. He remains hemodynamically stable. Urine output looks slightly concentrated. Drain output is sanguinous. Current Medications Current Medications Current Medications Albuterol Sulfate (Proventil, Ventolin Hfa) 2 puff Q6HP PRN INH sob Last administered on 11/13/18 05:35; Start 11/12/18 at 17:45 Atorvastatin Calcium (Lipitor) 40 mg QHS PO Last administered on 11/12/18 21:20; Start 11/12/18 at 21:00 Cefazolin Sodium 1 gm/Dextrose 50 ml @ 100 mls/hr Q8H IV Last administered on 11/13/18 01:14; Start 11/12/18 at 18:00; Stop 11/13/18 at 02:29; Status DC Chlorthalidone (Hygroton, Chlorthalidone) 12.5 mg DAILY PO Last administered on 11/13/18 08:11; Start 11/13/18 at 09:00 Divalproex Sodium (Depakote) 500 mg QHS PO Last administered on 11/12/18 22:11; Start 11/12/18 at 21:00 Enoxaparin Sodium (Lovenox) 40 mg DAILY SC Last administered on 11/13/18 08:12; Start 11/13/18 at 09:00 Fentanyl Citrate (Sublimaze) 25 mcg Q5MP PRN IV MODERATE PAIN (PS 4-7); Start 11/12/18 at 18:15; Stop 11/12/18 at 19:15; Status DC Hydromorphone HCl (Dilaudid) 0.4 mg Q5MP PRN IV MODERATE/SEVERE PAIN (PS 5-10) Last administered on 11/12/18at 18:40; Start 11/12/18 at 18:15; Stop 11/12/18 at 19:15; Status DC Ketorolac Tromethamine (ToRADol) 30 mg Q6HP PRN IV MILD/MODERATE PAIN (PS 1-7) Last administered on 5/29/19at 22:20; Start 11/12/18 at 17:45; Stop 11/17/18 at 17:44 Lactated Ringer's 1,000 ml @ 100 mls/hr Q10H IV ; Start 11/12/18 at 18:15; Stop 11/12/18 at 19:15; Status DC Lactated Ringer's 1,000 ml @ 125 mls/hr Q8H IV Last administered on 11/13/18at 07:28; Start 11/12/18 at 17:39 Magnesium Hydroxide (Milk Of Magnesia) 30 ml DAILYPRN PRN PO CONSTIPATION; Start 11/12/18 at 17:45 Morphine Sulfate (Morphine Sulfate Inj) 4 mg Q2HP PRN IV SEVERE PAIN (PS 8-10); Start 11/12/18 at 17:45 Ondansetron HCl (ZOFRAN INJection) 4 mg Q6HP PRN IV NAUSEA OR VOMITING Last administered on 11/12/18at 18:10; Start 11/12/18 at 17:45 Oxycodone/ Acetaminophen (Percocet 5mg/ 325mg Tablet) 1 tab ASDIRECTED PRN PO MILD/MODERATE PAIN (PS 1-7) Last administered on 11/12/18at 19:12; Start 11/12/18 at 18:15; Stop 11/12/18 at 19:13; Status DC Oxycodone/ Acetaminophen (Percocet 5mg/ 325mg Tablet) 1 tab Q4HP PRN PO MODERATE PAIN (PS 5-7); Start 11/12/18 at 17:45 Oxycodone/ Acetaminophen (Percocet 5mg/ 325mg Tablet) 2 tab Q6HP PRN PO SEVERE PAIN (PS 8-10) Last administered on 11/13/18at 08:48; Start 11/12/18 at 17:45 Senna/Docusate Sodium (Senokot S) 1 tab BID PO Last administered on 11/13/18at 08:11; Start 11/12/18 at 21:00 Allergies Coded Allergies: No Known Allergies (Verified , 05/29/17) Objective Physical Examination Examination GENERAL APPEARANCE: Relatively comfortable. SKIN: Warm and dry. HEENT: Normocephalic, atraumatic. [place] palpebral conjunctiva, anicteric sclerae. Lips and mucosa appear moist. NECK: Supple, no thyromegaly. No obvious jugular venous distention. LUNGS: Clear to auscultation bilaterally. No wheezing appreciated. HEART: No chest wall abnormalities. Regular rate and rhythm with no murmurs appreciated. ABDOMEN: Abdomen is rounded, moderately obese, soft, minimally distended. He has a vertical periumbilical incision with gary intact, moderate staining on the overlying gauze covering it. He has several port sites on both sides are dry and intact. He is to drains that are placed behind the abdominal wall muscles on top of the mesh that are both draining sanguinous nonclotting fluid. It seems is draining more on the left side and the right side. Roughly 130 mLs drained overnight. Relatively mild tenderness around palpation. Hernia repair is intact. EXTREMITIES: Extremities have no deformities. No edema identified. Vital Signs Vital Signs Date Time Temp Pulse Resp B/P (MAP) Pulse Ox O2 Delivery O2 Flow Rate FiO2 11/13/18 08:48 16 95 11/13/18 06:00 97.8 67 119/67 (84) 1.0 11/12/18 23:34 Nasal Cannula I&Os I&O- Last 24 Hours up to 6 AM 11/13/18 06:00 Intake Total 6015 ml Output Total 1530 ml Balance 4485 ml Laboratory Data Labs 24H Laboratory Tests 2 11/13/18 05:48: Immature Granulocyte % (Auto) 0.2, White Blood Count 8.1, Red Blood Count 4.09L, Hemoglobin 11.8L, Hematocrit 36.7L, Mean Corpuscular Volume 89.7, Mean Corpuscular Hemoglobin 28.9, Mean Corpuscular Hemoglobin Concent 32.2, Red Cell Distribution Width 12.6, Platelet Count 158, Neutrophils (%) (Auto) 69.2H, Lymphocytes (%) (Auto) 18.3L, Monocytes (%) (Auto) 9.4H, Eosinophils (%) (Auto) 2.7, Basophils (%) (Auto) 0.2, Neutrophils # (Auto) 5.6, Lymphocytes # (Auto) 1.5, Monocytes # (Auto) 0.8, Eosinophils # (Auto) 0.2, Basophils # (Auto) 0.0, Nucleated Red Blood Cells % (auto) 0.0, Anion Gap 8, Glomerular Filtration Rate > 60.0, Blood Urea Nitrogen 21H, Creatinine 1.22, Sodium Level 140, Potassium Level 4.0, Chloride Level 103, Carbon Dioxide Level 29, Calcium Level 7.9L CBC/BMP Laboratory Tests 11/13/18 05:48 Red Blood Count 4.09 L, Mean Corpuscular Volume 89.7, Mean Corpuscular Hemoglobin 28.9, Mean Corpuscular Hemoglobin Concent 32.2, Red Cell Distribution Width 12.6, Neutrophils (%) (Auto) 69.2 H, Lymphocytes (%) (Auto) 18.3 L, Monocytes (%) (Auto) 9.4 H, Eosinophils (%) (Auto) 2.7, Basophils (%) (Auto) 0.2, Neutrophils # (Auto) 5.6, Lymphocytes # (Auto) 1.5, Monocytes # (Auto) 0.8, Eosinophils # (Auto) 0.2, Basophils # (Auto) 0.0, Calcium Level 7.9 L Impression Postop day 1 after robotic-assisted laparoscopic incisional hernia repair with bilateral transversus abdominus release Patient is doing well. He is relatively comfortable. The drain is expectedly draining some sanguinous nonclotting fluid. PLANS: Discontinue Valverde catheter Saline lock IV fluid patient will be advanced to regular diet I instructed the patient to get up still up on the chair most of the day and ambulate to hallways at least 3 times today Continue monitoring the drain. Expect he will go home with one or 2 drinks depending on the output and we will just manage this as an outpatient. Lovenox for DVT prophylaxis. Plan / VTE VTE Prophylaxis Ordered?: Yes Plan / Urinary Catheter Urinary Catheter: D/C DARLYN Cifuentes MD November 13, 2018 09:17
[2018-11-13 10:00] VITALS: BP 114/68
[2018-11-13] MEDS: KETOROLAC 30 MG/ML VIAL (J1885) IV PRN (13:27)
[2018-11-13 14:00] VITALS: BP 119/65
[2018-11-13 18:00] VITALS: BP 127/72
[2018-11-13] MEDS: DIVALPROEX 500 MG TAB PO SCH (20:23)
[2018-11-13] MEDS: ATORVASTATIN 20 MG TAB PO SCH (20:23)
[2018-11-13 22:00] VITALS: BP 103/60
[2018-11-14 02:00] VITALS: BP 115/65
[2018-11-14] MEDS: LR 1,000 ML IV SCH ×2 (03:39→19:50)
[2018-11-14 05:57] LABS: BASO % 0.3 % (0.0-1.0); EOS # 0.2 10^3/uL (0.0-0.50); EOS % 3.6 % (0.0-3.0); HEMATOCRIT 32.4 % (42.0-52.0); HEMOGLOBIN 10.6 g/dl (13.5-17.5); LYMPH # 1.4 10^3/uL (1.5-4.5); LYMPH % 21.1 % (24.0-44.0); MEAN CORPUSCULAR HEMOGLOBIN 29.4 pg (27.0-33.0); MEAN CORPUSCULAR HGB CONC 32.7 g/dl (32.0-36.5); MONO # 0.6 10^3/uL (0.0-0.8); MONO % 8.8 % (0.0-5.0); NEUTROPHILS # 4.4 10^3/uL (1.8-7.7); NEUTROPHILS % 65.8 % (36.0-66.0); PLATELET COUNT, AUTOMATED 141 10^3/uL (150-450); WHITE BLOOD COUNT 6.7 10^3/uL (4.0-10.0)
[2018-11-14 06:00] VITALS: BP 117/63
[2018-11-14 06:11] LABS: BLOOD UREA NITROGEN 21 MG/DL (7-18); CALCIUM LEVEL 7.7 MG/DL (8.5-10.1); CARBON DIOXIDE LEVEL 31 MEQ/L (21-32); CHLORIDE LEVEL 104 MEQ/L (98-107); CREATININE FOR GFR 1.12 MG/DL (0.70-1.30); GLOMERULAR FILTRATION RATE > 60.0 (>60); GLUCOSE, FASTING 94 MG/DL (70-100); POTASSIUM SERUM 3.6 MEQ/L (3.5-5.1); SODIUM LEVEL 139 MEQ/L (136-145)
[2018-11-14] MEDS ORDERED: NS 1,000 ML IV ONE (06:30)
--- NOTE | 2018-11-14 08:44 | IPNPDOC ---
Subjective General Date/Time Seen The patient was seen on 11/14/18 at 08:38. Subject Chief Complaint/History The patient is a 47-year-old male admitted with a reason for visit of Recurrent Incisional Hernia. Patient reports he is comfortable. Just receiving Toradol IV when necessary as well as Percocets. He is not getting any morphine. He ambulated to the hallways yesterday. He is tolerating regular diet and passing flatus, no BMs yet. Main issue yesterday was the amount of drainage from the Demarcus drains which seems to have decreased overnight. He remains hemodynamically stable he reports urine output is concentrated. Current Medications Current Medications Current Medications Albuterol Sulfate (Proventil, Ventolin Hfa) 2 puff Q6HP PRN INH sob Last admi nistered on 11/13/18at 05:35; Start 11/12/18 at 17:45 Atorvastatin Calcium (Lipitor) 40 mg QHS PO Last administered on 11/13/18at 20:23; Start 11/12/18 at 21:00 Cefazolin Sodium 1 gm/Dextrose 50 ml @ 100 mls/hr Q8H IV Last administered on 11/13/18at 01:14; Start 11/12/18 at 18:00; Stop 11/13/18 at 02:29; Status DC Chlorthalidone (Hygroton, Chlorthalidone) 12.5 mg DAILY PO Last administered on 11/13/18at 08:11; Start 11/13/18 at 09:00 Divalproex Sodium (Depakote) 500 mg QHS PO Last administered on 11/13/18 20:23; Start 11/12/18 at 21:00 Enoxaparin Sodium (Lovenox) 40 mg DAILY SC Last administered on 11/13/18at 08:12; Start 11/13/18 at 09:00; Stop 11/13/18 at 17:33; Status DC Fentanyl Citrate (Sublimaze) 25 mcg Q5MP PRN IV MODERATE PAIN (PS 4-7); Start 11/12/18 at 18:15; Stop 11/12/18 at 19:15; Status DC Hydromorphone HCl (Dilaudid) 0.4 mg Q5MP PRN IV MODERATE/SEVERE PAIN (PS 5-10) Last administered on 11/12/18at 18:40; Start 11/12/18 at 18:15; Stop 11/12/18 at 19:15; Status DC Ketorolac Tromethamine (ToRADol) 30 mg Q6HP PRN IV MILD/MODERATE PAIN (PS 1-7) Last administered on 11/13/18at 13:27; Start 11/12/18 at 17:45; Stop 11/17/18 at 17:44 Lactated Ringer's 1,000 ml @ 75 mls/hr [id number] IV Last administered on 11/14/18at 03:39; Start 11/12/18 at 17:39 Lactated Ringer's 1,000 ml @ 100 mls/hr Q10H IV ; Start 11/12/18 at 18:15; Stop 11/12/18 at 19:15; Status DC Magnesium Hydroxide (Milk Of Magnesia) 30 ml DAILYPRN PRN PO CONSTIPATION; Start 11/12/18 at 17:45 Morphine Sulfate (Morphine Sulfate Inj) 4 mg Q2HP PRN IV SEVERE PAIN (PS 8-10); Start 11/12/18 at 17:45 Ondansetron HCl (ZOFRAN INJection) 4 mg Q6HP PRN IV NAUSEA OR VOMITING Last administered on 11/12/18at 18:10; Start 11/12/18 at 17:45 Oxycodone/ Acetaminophen (Percocet 5mg/ 325mg Tablet) 1 tab ASDIRECTED PRN PO MILD/MODERATE PAIN (PS 1-7) Last administered on 11/12/18at 19:12; Start 11/12/18 at 18:15; Stop 11/12/18 at 19:13; Status DC Oxycodone/ Acetaminophen (Percocet 5mg/ 325mg Tablet) 1 tab Q4HP PRN PO MODERATE PAIN (PS 5-7); Start 11/12/18 at 17:45 Oxycodone/ Acetaminophen (Percocet 5mg/ 325mg Tablet) 2 tab Q6HP PRN PO SEVERE PAIN (PS 8-10) Last administered on 11/13/18at 20:24; Start 11/12/18 at 17:45 Senna/Docusate Sodium (Senokot S) 1 tab BID PO Last administered on 11/13/18at 20:23; Start 11/12/18 at 21:00 Allergies Coded Allergies: No Known Allergies (Verified , 05/29/17) Objective Physical Examination Examination GENERAL APPEARANCE: Relatively comfortable. SKIN: Warm and dry. HEENT: Normocephalic, atraumatic. [place] palpebral conjunctiva, anicteric sclerae. Lips and mucosa appear dry. NECK: Supple, no thyromegaly. No obvious jugular venous distention. LUNGS: Clear to auscultation bilaterally. No wheezing appreciated. Slight decreased breath sounds on posterior bases HEART: No chest wall abnormalities. Regular rate and rhythm with no murmurs appreciated. ABDOMEN: Abdomen is round, soft, minimally distended. He has a vertical periumbilical incision with small amount of oozing in between the gary. Several laparoscopic port sites are intact with gayr. His Demarcus drains are both putting out coagulated appearing sanguinous fluid does not look fresh bleeding compared to yesterday.. EXTREMITIES: Extremities have no deformities. No edema identified. Vital Signs Vital Signs Date Time Temp Pulse Resp B/P (MAP) Pulse Ox O2 Delivery O2 Flow Rate FiO2 11/14/18 06:00 99.3 80 18 117/63 (81) 96 1.0 11/14/18 04:45 Nasal Cannula I&Os I&O- Last 24 Hours up to 6 AM 11/14/18 06:00 Intake Total 3000 ml Output Total 710 ml Balance 2290 ml Laboratory Data Labs 24H Laboratory Tests 2 11/14/18 05:36: Immature Granulocyte % (Auto) 0.4, White Blood Count 6.7, Red Blood Count 3.60L, Hemoglobin 10.6L, Hematocrit 32.4L, Mean Corpuscular Volume 90.0, Mean Corpuscular Hemoglobin 29.4, Mean Corpuscular Hemoglobin Concent 32.7, Red Cell Distribution Width 12.9, Platelet Count 141L, Neutrophils (%) (Auto) 65.8, Lymphocytes (%) (Auto) 21.1L, Monocytes (%) (Auto) 8.8H, Eosinophils (%) (Auto) 3.6H, Basophils (%) (Auto) 0.3, Neutrophils # (Auto) 4.4, Lymphocytes # (Auto) 1.4L, Monocytes # (Auto) 0.6, Eosinophils # (Auto) 0.2, Basophils # (Auto) 0.0, Nucleated Red Blood Cells % (auto) 0.0, Anion Gap 4L, Glomerular Filtration Rate > 60.0, Blood Urea Nitrogen 21H, Creatinine 1.12, Sodium Level 139, Potassium Level 3.6, Chloride Level 104, Carbon Dioxide Level 31, Calcium Level 7.7L CBC/BMP Laboratory Tests 11/14/18 05:36 Red Blood Count 3.60 L, Mean Corpuscular Volume 90.0, Mean Corpuscular Hem oglobin 29.4, Mean Corpuscular Hemoglobin Concent 32.7, Red Cell Distribution Width 12.9, Neutrophils (%) (Auto) 65.8, Lymphocytes (%) (Auto) 21.1 L, Monocytes (%) (Auto) 8.8 H, Eosinophils (%) (Auto) 3.6 H, Basophils (%) (Auto) 0.3, Neutrophils # (Auto) 4.4, Lymphocytes # (Auto) 1.4 L, Monocytes # (Auto) 0.6, Eosinophils # (Auto) 0.2, Basophils # (Auto) 0.0, Calcium Level 7.7 L Impression POD2 RA laparoscopic incisional hernia repair, bilateral transversus abdominis release Yesterday afternoon, I noted the drainage came up to 585 and checked on him. Looks bloody but nonclotting. Lovenox was held. Overnight he only had 125 total drainage. So he must have mobilized his fluid collection while upright during the day or if he was oozing, has clotted already. he remains hemodynamically stable. No signs of SSI. UO not being recorded accurately (patient voiding independently) but patient reports concentrated urine. PLAN: Give him 1L NS bolus encourage increase PO liquid intake continue ambulation deep breathing exercises/incentive spirometry continue monitor the drain If the drain output continues to be low possibly d/c with drain today or tomorrow Plan / VTE VTE Prophylaxis Ordered?: Yes (mechanical prophylaxis only, concern for oozing at surgical site) Plan / Urinary Catheter Urinary Catheter: D/C DARLYN Cifuentes MD November 14, 2018 08:44
[2018-11-14] MEDS: MOM 30ML SUSPENSION UDC PO PRN (08:50)
[2018-11-14] MEDS: CHLORTHALIDONE 12.5MG PER 1/2 TABLET PO SCH (08:50)
[2018-11-14] MEDS: SENOKOT S TAB PO SCH ×2 (08:50→20:15)
[2018-11-14] MEDS: PERCOCET 5MG/325MG TAB PO PRN (10:00)
[2018-11-14 14:00] VITALS: BP 119/70
[2018-11-14] MEDS: ATORVASTATIN 20 MG TAB PO SCH (20:15)
[2018-11-14] MEDS: DIVALPROEX 500 MG TAB PO SCH (20:15)
[2018-11-14 22:00] VITALS: BP 133/73
[2018-11-15 05:28] LABS: BASO % 0.3 % (0.0-1.0); EOS # 0.3 10^3/uL (0.0-0.50); EOS % 4.4 % (0.0-3.0); HEMATOCRIT 30.8 % (42.0-52.0); HEMOGLOBIN 10.2 g/dl (13.5-17.5); LYMPH # 1.5 10^3/uL (1.5-4.5); LYMPH % 21.7 % (24.0-44.0); MEAN CORPUSCULAR HGB CONC 33.1 g/dl (32.0-36.5); MEAN CORPUSCULAR VOLUME 90.6 fl (80.0-96.0); MONO # 0.7 10^3/uL (0.0-0.8); MONO % 9.5 % (0.0-5.0); NEUTROPHILS # 4.5 10^3/uL (1.8-7.7); NEUTROPHILS % 63.5 % (36.0-66.0); PLATELET COUNT, AUTOMATED 127 10^3/uL (150-450); WHITE BLOOD COUNT 7.1 10^3/uL (4.0-10.0)
[2018-11-15 05:53] LABS: BLOOD UREA NITROGEN 9 MG/DL (7-18); CALCIUM LEVEL 8.4 MG/DL (8.5-10.1); CARBON DIOXIDE LEVEL 32 MEQ/L (21-32); CHLORIDE LEVEL 104 MEQ/L (98-107); CREATININE FOR GFR 1.02 MG/DL (0.70-1.30); GLOMERULAR FILTRATION RATE > 60.0 (>60); GLUCOSE, FASTING 91 MG/DL (70-100); POTASSIUM SERUM 3.7 MEQ/L (3.5-5.1); SODIUM LEVEL 140 MEQ/L (136-145)
[2018-11-15 06:00] VITALS: BP 141/82
--- NOTE | 2018-11-15 06:27 | IPNPDOC ---
Subjective General Date/Time Seen The patient was seen on 11/15/18 at 06:26. Subject Chief Complaint/History The patient is a 47-year-old male admitted with a reason for visit of Recurrent Incisional Hernia. Current Medications Current Medications Current Medications Albuterol Sulfate (Proventil, Ventolin Hfa) 2 puff Q6HP PRN INH sob Last administered on 11/13/18 05:35; Start 11/12/18 at 17:45 Atorvastatin Calcium (Lipitor) 40 mg QHS PO Last administered on 11/14/18 20:15; Start 11/12/18 at 21:00 Cefazolin Sodium 1 gm/Dextrose 50 ml @ 100 mls/hr Q8H IV Last administered on 11/13/18 01:14; Start 11/12/18 at 18:00; Stop 11/13/18 at 02:29; Status DC Chlorthalidone (Hygroton, Chlorthalidone) 12.5 mg DAILY PO Last administered on 11/14/18 08:50; Start 11/13/18 at 09:00 Divalproex Sodium (Depakote) 500 mg QHS PO Last administered on 11/14/18 20:15; Start 11/12/18 at 21:00 Enoxaparin Sodium (Lovenox) 40 mg DAILY SC Last administered on 11/13/18 08:12; Start 11/13/18 at 09:00; Stop 11/13/18 at 17:33; Status DC Fentanyl Citrate (Sublimaze) 25 mcg Q5MP PRN IV MODERATE PAIN (PS 4-7); Start 11/12/18 at 18:15; Stop 11/12/18 at 19:15; Status DC Hydromorphone HCl (Dilaudid) 0.4 mg Q5MP PRN IV MODERATE/SEVERE PAIN (PS 5-10) Last administered on 11/12/18at 18:40; Start 11/12/18 at 18:15; Stop 11/12/18 at 19:15; Status DC Ketorolac Tromethamine (ToRADol) 30 mg Q6HP PRN IV MILD/MODERATE PAIN (PS 1-7) Last administered on 11/13/18at 13:27; Start 11/12/18 at 17:45; Stop 11/17/18 at 17:44 Lactated Ringer's 1,000 ml @ 75 mls/hr [id number] IV Last administered on 11/14/18at 19:50; Start 11/12/18 at 17:39 Lactated Ringer's 1,000 ml @ 100 mls/hr Q10H IV ; Start 11/12/18 at 18:15; Stop 11/12/18 at 19:15; Status DC Magnesium Hydroxide (Milk Of Magnesia) 30 ml DAILYPRN PRN PO CONSTIPATION Last administered on 11/14/18at 08:50; Start 11/12/18 at 17:45 Morphine Sulfate (Morphine Sulfate Inj) 4 mg Q2HP PRN IV SEVERE PAIN (PS 8-10); Start 11/12/18 at 17:45 Ondansetron HCl (ZOFRAN INJection) 4 mg Q6HP PRN IV NAUSEA OR VOMITING Last administered on 11/12/18at 18:10; Start 11/12/18 at 17:45 Oxycodone/ Acetaminophen (Percocet 5mg/ 325mg Tablet) 1 tab ASDIRECTED PRN PO MILD/MODERATE PAIN (PS 1-7) Last administered on 11/12/18at 19:12; Start 11/12/18 at 18:15; Stop 11/12/18 at 19:13; Status DC Oxycodone/ Acetaminophen (Percocet 5mg/ 325mg Tablet) 1 tab Q4HP PRN PO MODERATE PAIN (PS 5-7); Start 11/12/18 at 17:45 Oxycodone/ Acetaminophen (Percocet 5mg/ 325mg Tablet) 2 tab Q6HP PRN PO SEVERE PAIN (PS 8-10) Last administered on 11/14/18at 10:00; Start 11/12/18 at 17:45 Senna/Docusate Sodium (Senokot S) 1 tab BID PO Last administered on 11/14/18at 20:15; Start 11/12/18 at 21:00 Allergies Coded Allergies: No Known Allergies (Verified , 05/29/17) Objective Physical Examination Examination GENERAL APPEARANCE:[Patient seen, laying in bed, awake, alert, and oriented. Comfortable, in no acute distress]. SKIN: [Warm and moist]. HEENT: [Normocephalic, atraumatic. [place] palpebral conjunctiva, anicteric sclerae. Lips and mucosa appear moist]. NECK: [Supple, no thyromegaly. No obvious jugular venous distention]. LUNGS: [Clear to auscultation bilaterally. No wheezing appreciated]. HEART: [No chest wall abnormalities. Regular rate and rhythm with no murmurs appreciated]. ABDOMEN: Abdomen is , soft, . [No hepatosplenomegaly. No umbilical or groin herniations, nondistended. No noticeable rebound or guarding. No grimacing with palpation. No rebound tenderness. No masses appreciated]. EXTREMITIES: [Extremities have no deformities. No edema identified]. Vital Signs Vital Signs Date Time Temp Pulse Resp B/P (MAP) Pulse Ox O2 Delivery O2 Flow Rate FiO2 11/14/18 22:00 99.1 78 20 133/73 (93) 98 11/14/18 06:00 1.0 11/14/18 04:45 Nasal Cannula I&Os I&O- Last 24 Hours up to 6 AM 11/15/18 06:00 Intake Total 2785 ml Output Total 95 ml Balance 2690 ml Laboratory Data Labs 24H Laboratory Tests 2 11/15/18 05:13: Immature Granulocyte % (Auto) 0.6, White Blood Count 7.1, Red Blood Count 3.40L, Hemoglobin 10.2L, Hematocrit 30.8L, Mean Corpuscular Volume 90.6, Mean Corpuscular Hemoglobin 30.0, Mean Corpuscular Hemoglobin Concent 33.1, Red Cell Distribution Width 12.8, Platelet Count 127L, Neutrophils (%) (Auto) 63.5, Lymphocytes (%) (Auto) 21.7L, Monocytes (%) (Auto) 9.5H, Eosinophils (%) (Auto) 4.4H, Basophils (%) (Auto) 0.3, Neutrophils # (Auto) 4.5, Lymphocytes # (Auto) 1.5, Monocytes # (Auto) 0.7, Eosinophils # (Auto) 0.3, Basophils # (Auto) 0.0, Nucleated Red Blood Cells % (auto) 0.0, Anion Gap 4L, Glomerular Filtration Rate > 60.0, Blood Urea Nitrogen 9#, Creatinine 1.02, Sodium Level 140, Potassium Level 3.7, Chloride Level 104, Carbon Dioxide Level 32, Calcium Level 8.4L CBC/BMP Laboratory Tests 11/15/18 05:13 Red Blood Count 3.40 L, Mean Corpuscular Volume 90.6, Mean Corpuscular Hemoglobin 30.0, Mean Corpuscular Hemoglobin Concent 33.1, Red Cell Distribution Width 12.8, Neutrophils (%) (Auto) 63.5, Lymphocytes (%) (Auto) 21.7 L, Monocytes (%) (Auto) 9.5 H, Eosinophils (%) (Auto) 4.4 H, Basophils (%) (Auto) 0.3, Neutrophils # (Auto) 4.5, Lymphocytes # (Auto) 1.5, Monocytes # (Auto) 0.7, Eosinophils # (Auto) 0.3, Basophils # (Auto) 0.0, Calcium Level 8.4 L Impression POD3 RA laparoscopic incisional hernia repair with bilateral transversus abdominis release drain output has markedly gone down at this point ok to go home no bm since admission will give one dose of miralax Plan / VTE VTE Prophylaxis Ordered?: Yes (mechanical prophylaxis only, concern for oozing at surgical site) Plan / Urinary Catheter Urinary Catheter: D/C DARLYN Cifuentes MD Nov 15, 2018 06:27
[2018-11-15] MEDS: PERCOCET 5MG/325MG TAB PO PRN (06:29)
[2018-11-15] MEDS ORDERED: MIRALAX *UNIT DOSE* 17GM PACKET PO ONE (06:30)
[2018-11-15] MEDS: LR 1,000 ML IV SCH (08:46)
[2018-11-15] MEDS ORDERED: KETO10TAB PO (09:40)
[2018-11-15] MEDS ORDERED: PERCOCET PO (09:40)
--- NOTE | 2018-11-15 10:09 | DS.PDOC ---
Discharge Summary General Date of Admission November 12, 2018 at 17:39 Date of Discharge november 15, 2018 Attending Physician: DARLYN RAUSCH MD Discharge Summary PROCEDURES PERFORMED DURING STAY: Robotic Assisted Laparoscopic Incisional Hernia Repair, Bilateral Transversus Abdominis Release. ADMITTING DIAGNOSES: 1. recurrent incisional hernia. DISCHARGE DIAGNOSES: 1. recurrent incisional hernia. COMPLICATIONS/CHIEF COMPLAINT: Recurrent Incisional Hernia. HISTORY OF PRESENT ILLNESS: 47-year-old male brought in electively for repair of this recurrent incisional hernia. HOSPITAL COURSE: patient admitted for postop pain control and monitoring given extent of dissection involved in his surgery. His postoperative course was relatively uneventful. He remained hemodynamically stable. Our main issue postoperatively is his drainage. The first 90 only drained about a 5 mL on the first day he subsequently drained about 585 MLS of bloody-appearing fluid that were nonclotting through both of the drains despite this is hemodynamically stable and non-tachycardic he was able to ambulate without any shortness of breath or lightheadedness. His Valverde catheter was removed and postop day 1 I held off on Lovenox. His drain dropped markedly down overnight draining only about 125 MLS. We'll continue to monitor drain output and on day of discharge he is only draining 90 MLS overnight. Pain control was adequate with him just using intermittent doses of Percocets and Toradol IV. He has not had a bowel movement while he is here in the hospital was given a dose of MiraLAX. D ISCHARGE MEDICATIONS: Please see below. ALLERGIES: Please see below. PHYSICAL EXAMINATION ON DISCHARGE: VITAL SIGNS: Please see below. GENERAL: He looks very comfortable HEENT: Normocephalic atraumatic. [place] palpebral conjunctiva, lips and mucosa are moist NECK: Short, supple no jugular venous distention CARDIOVASCULAR EXAMINATION:. Heart rate and rhythm RESPIRATORY EXAMINATION:. Clear Auscultation in both sides ABDOMINAL EXAMINATION: Moderately obese, soft, nondistended. He is wearing an abdominal binder. He has 2 drains coming out from both sides both with starting to look like bladder call her of serosanguineous drainage. The right side still has some clots in the tubing with some drainage around the tubing. Otherwise the midline incision is relatively dry, intact with gary in place EXTREMITIES: No edema SKIN: No skin rashes NEUROLOGICAL EXAMINATION: Awake, alert, oriented LABORATORY DATA: Please see below. IMAGING: None PROGNOSIS: Good ACTIVITY: Light activity up to 4 weeks from the surgery. Where the abdominal binder when upright and ambulating. DIET: As tolerated DISCHARGE PLAN: Patient will be discharged home with the drains. He has been set up for public health nursing to visit him. He has been instructed by the nurses not to care for the drains. He'll see me next week for possible removal of drains. DISPOSITION: . DISCHARGE INSTRUCTIONS: 1. Empty drains regularly, record output and character 2. Follow up with me on for possible drain removal. ITEMS TO FOLLOWUP ON ON OUTPATIENT: 1. drain output DISCHARGE CONDITION: Stable. TIME SPENT ON DISCHARGE: Greater than 30 minutes. Vital Signs/I&Os Vital Signs Date Time Temp Pulse Resp B/P (MAP) Pulse Ox O2 Delivery O2 Flow Rate FiO2 11/15/18 06:59 14 11/15/18 06:00 98.1 74 141/82 (101) 96 11/14/18 06:00 1.0 11/14/18 04:45 Nasal Cannula I&O- Last 24 Hours up to 6 AM 11/15/18 06:00 Intake Total 3485 ml Output Total 95 ml Balance 3390 ml Laboratory Data Labs 24H Laboratory Tests 2 11/15/18 05:13: Immature Granulocyte % (Auto) 0.6, White Blood Count 7.1, Red Blood Count 3.40L, Hemoglobin 10.2L, Hematocrit 30.8L, Mean Corpuscular Volume 90.6, Mean Corpuscular Hemoglobin 30.0, Mean Corpuscular Hemoglobin Concent 33.1, Red Cell Distribution Width 12.8, Platelet Count 127L, Neutrophils (%) (Auto) 63.5, Lymphocytes (%) (Auto) 21.7L, Monocytes (%) (Auto) 9.5H, Eosinophils (%) (Auto) 4.4H, Basophils (%) (Auto) 0.3, Neutrophils # (Auto) 4.5, Lymphocytes # (Auto) 1.5, Monocytes # (Auto) 0.7, Eosinophils # (Auto) 0.3, Basophils # (Auto) 0.0, Nucleated Red Blood Cells % (auto) 0.0, Anion Gap 4L, Glomerular Filtration Rate > 60.0, Blood Urea Nitrogen 9#, Creatinine 1.02, Sodium Level 140, Potassium Level 3.7, Chloride Level 104, Carbon Dioxide Level 32, Calcium Level 8.4L CBC/BMP Laboratory Tests 11/15/18 05:13 Red Blood Count 3.40 L, Mean Corpuscular Volume 90.6, Mean Corpuscular Hemoglobin 30.0, Mean Corpuscular Hemoglobin Concent 33.1, Red Cell Distribution Width 12.8, Neutrophils (%) (Auto) 63.5, Lymphocytes (%) (Auto) 21.7 L, Monocytes (%) (Auto) 9.5 H, Eosinophils (%) (Auto) 4.4 H, Basophils (%) (Auto) 0.3, Neutrophils # (Auto) 4.5, Lymphocytes # (Auto) 1.5, Monocytes # (Auto) 0.7, Eosinophils # (Auto) 0.3, Basophils # (Auto) 0.0, Calcium Level 8.4 L Discharge Medications Scheduled Atorvastatin Calcium (Atorvastatin Calcium) 40 Mg Tab, 40 MG PO QHS, (Reported) Chlorthalidone (Chlorthalidone) 25 Mg Tab, 12.5 MG PO DAILY, (Reported) Divalproex Sodium (Depakote) 500 Mg Tab, 500 MG PO QHS, (Reported) Fluticasone/Vilanterol (Breo Ellipta 100-25 Mcg INH) 1 Inh Inh, 1 PUFF INH DAILY, (Reported) Scheduled PRN Docusate Sodium (Docusate Sodium) 100 Mg Cap, 100 MG PO BIDP PRN for CONSTIPATION, (Reported) Ketorolac Tromethamine (Ketorolac Tromethamine) 10 Mg Tablet, 1 TAB PO Q8HP PRN for pain Oxycodone/Acetaminophen (Oxycodone-Acetaminophen 5-325) 1 Each Tablet, 1-2 TAB PO Q4-6HP PRN for MODERATE PAIN (PS 5-7) Simethicone (Simethicone) 125 Mg Cap, 125 MG PO QIDP PRN for BLOATING Miscellaneous Medications Albuterol Sulfate (Proair Hfa) 8.5 Gm Hfa.aer.ad, 2 PUFF INH, (Reported) Allergies Coded Allergies: No Known Allergies (Verified , 05/29/17) DARLYN RAUSCH MD Nov 15, 2018 10:09
[2018-11-15 10:10] VITALS: BP 133/71
[2018-11-15] MEDS: SENOKOT S TAB PO SCH (10:11)
[2018-11-15] MEDS: CHLORTHALIDONE 12.5MG PER 1/2 TABLET PO SCH (10:11)
[2018-11-15] MEDS: MOM 30ML SUSPENSION UDC PO PRN (10:11)
== END 2018-11-15 11:07 | disposition home or self-care (01) | DRG 355 ==
LOC: M SDC 08:09 → M ED INP 17:39 → M MSPAV 17:39
PROVIDERS: ADMIT Surgery; ATTEND Surgery
PROC: 8E0W4CZ Robotic Assisted Procedure of Trunk Region, Percutaneous Endoscopic Approach (ICD-10-PCS; 2018-11-12)
PROC: 0WUF4JZ Supplement Abdominal Wall with Synthetic Substitute, Percutaneous Endoscopic Approach (ICD-10-PCS; principal; 2018-11-12 10:00)
DX: K43.2 Incisional hernia without obstruction or gangrene (principal); Z79.899 Other long term (current) drug therapy; I10 Essential (primary) hypertension; J45.909 Unspecified asthma, uncomplicated; E78.00 Pure hypercholesterolemia, unspecified; F32.9 Major depressive disorder, single episode, unspecified

== ENCOUNTER → 2019-02-21 | Outpatient (CLI) | payer MEDICARE, MEDICAID ==
[~2019-02-21] MED LIST changes: +KETO10TAB PO; -LR 1,000 ML IV ONE; +PERCOCET PO
--- NOTE | 2019-03-02 07:17 | REP ---
Clinical: Left foot pain. Technique: AP, lateral, bilateral oblique views of the left foot. Findings: Moderate arthritic degenerative changes are appreciated primarily involving the midfoot and tarsometatarsal joints as well as the first metatarsophalangeal joint. No acute fracture dislocation. No subcutaneous emphysema or foreign body. Impression: Early moderate arthritic degenerative changes. Electronically Signed by Donnie Tucker MD 03/02/2019 07:08 A
== END ==
LOC: M WUC 15:29
PROVIDERS: ATTEND Physician Assistant
DX: M79.672 Pain in left foot (principal); M19.072 Primary osteoarthritis, left ankle and foot

== ENCOUNTER 2019-03-30 06:55 | Day surgery (SDC) | payer MEDICARE, MEDICAID ==
[~2019-03-30] VITALS: Ht 193 cm; Wt 131.1 kg
[~2019-03-30 06:55] MED LIST changes: +NS 1,000 ML IV SCH; -OMEP40CA2 PO; +OMEP40CA97 PO; -SERT-155; +SERT50TA29
[2019-03-30] MEDS ORDERED: SCOPOLAMINE 1MG TRANSDERMAL PATCH As Ordered ONE (07:47)
[2019-03-30] MEDS ORDERED: LIDOCAINE 2% INJ 100 MG/5 ML SDV (FOR ANES.) As Ordered ONE (07:52)
[2019-03-30] MEDS ORDERED: PROPOFOL 200 MG/20 ML VIAL As Ordered ONE ×2 (07:52→08:00)
[2019-03-30] MEDS ORDERED: SCOPOLAMINE 1MG TRANSDERMAL PATCH TOP ONE (08:15)
[2019-03-30 08:56] VITALS: BP 111/67
--- NOTE | 2019-03-30 09:16 | ROOR ---
Patient Name: Hunter Marrufo Procedure Date: 03/30/2019 8:17 AM Date of : 1970 Age: 48 Room: [facility] Gender: Male Note Status: Finalized Procedure: Colonoscopy Indications: Screening for colorectal malignant neoplasm Providers: Steven Yeager MD Referring MD: Medardo SCHMIDT MD Requesting Provider: Medicines: Monitored Anesthesia Care Complications: No immediate complications. Procedure: Pre-Anesthesia Assessment: - Prior to the procedure, a History and Physical was performed, and patient medications and allergies were reviewed. The patient is competent. The risks and benefits of the procedure and the sedation options and risks were discussed with the patient. All questions were answered and informed consent was obtained. Patient identification and proposed procedure were verified by the physician, the nurse and the anesthesiologist in the procedure room. Mental Status Examination: alert and oriented. Airway Examination: normal oropharyngeal airway and neck mobility. Respiratory Examination: clear to auscultation. CV Examination: normal. Prophylactic Antibiotics: The patient does not require prophylactic antibiotics. Prior Anticoagulants: The patient has taken no previous anticoagulant or antiplatelet agents. ASA Grade Assessment: II - A patient with mild systemic disease. After reviewing the risks and benefits, the patient was deemed in satisfactory condition to undergo the procedure. The anesthesia plan was to use monitored anesthesia care (MAC). Immediately prior to administration of medications, the patient was re-assessed for adequacy to receive sedatives. The heart rate, respiratory rate, oxygen saturations, blood pressure, adequacy of pulmonary ventilation, and response to care were monitored throughout the procedure. The physical status of the patient was re-assessed after the procedure. The Colonoscope was introduced through the anus and advanced to the terminal ileum, with identification of the appendiceal orifice and IC valve. The colonoscopy was performed without difficulty. The patient tolerated the procedure well. The quality of the bowel preparation was good. The ileocecal valve, appendiceal orifice, and rectum were photographed. Scope insertion time was 3 minutes. Scope withdrawal time was 9 minutes. The total duration of the procedure was 12 minutes. Findings: The perianal and digital rectal examinations were normal. The terminal ileum appeared normal. Two sessile polyps were found in the cecum. The polyps were 3 to 10 mm in size. These polyps were removed with a cold snare. Resection and retrieval were complete. These polyps were removed with a jumbo cold forceps. Resection and retrieval were complete. Verification of patient identification for the specimen was done by the physician and nurse using the patient's name, date and medical record number. Estimated blood loss was minimal. Scattered small and large-mouthed diverticula were found from sigmoid to transverse colon. There was no evidence of diverticular bleeding. Non-bleeding external and internal hemorrhoids were found during retroflexion. The hemorrhoids were medium-sized. Impression: - The examined portion of the ileum was normal. - Two 3 to 10 mm polyps in the cecum, removed with a cold snare and removed with a jumbo cold forceps. Resected and retrieved. - Moderate diverticulosis from sigmoid to transverse colon. There was no evidence of diverticular bleeding. - Non-bleeding external and internal hemorrhoids. Recommendation: - Patient has a contact number available for emergencies. The signs and symptoms of potential delayed complications were discussed with the patient. Return to normal activities tomorrow. Written discharge instructions were provided to the patient. - High fiber diet. - Continue present medications. - Await pathology results. - Repeat colonoscopy in 3 - 5 years for surveillance based on pathology results. - Telephone GI clinic for pathology results in 2 weeks. - Return to primary care physician. Steven Yeager MD Steven Yeager MD 03/30/2019 9:15:26 AM Electronically signed by Steven Yeager MD Number of Addenda: 0 Note Initiated On: 03/30/2019 8:17 AM Estimated Blood Loss: Estimated blood loss was minimal.
== END 2019-03-30 08:56 | disposition home or self-care (01) ==
LOC: M OPP 06:55
PROVIDERS: ATTEND Internal Medicine Gastroenterology
DX: Z12.11 Encounter for screening for malignant neoplasm of colon (principal); K64.8 Other hemorrhoids; D12.0 Benign neoplasm of cecum; K57.30 Diverticulosis of large intestine without perforation or abscess without bleeding; I10 Essential (primary) hypertension; K21.9 Gastro-esophageal reflux disease without esophagitis; Z79.899 Other long term (current) drug therapy

== ENCOUNTER → 2019-08-04 | Outpatient (CLI) | payer MEDICARE, MEDICAID ==
[~2019-08-04] MED LIST changes: -NS 1,000 ML IV SCH
--- NOTE | 2019-08-04 16:43 | REP ---
Clinical: Contusion Technique: Two views of the right clavicle. Findings: Degenerative changes at the acromioclavicular joint. No acute fracture or dislocation appreciated. Impression: No acute fracture or dislocation. Electronically Signed by Donnie Tucker MD 08/04/2019 04:35 P
--- NOTE | 2019-08-04 16:44 | REP ---
Clinical: Contusion. Technique: Internal rotation, external rotation, and Y view of the right shoulder. Findings: Degenerative changes. No acute fracture or dislocation. Surrounding soft tissues are unremarkable. Impression: No acute fracture or dislocation. Electronically Signed by Donnie Tucker MD 08/04/2019 04:37 P
--- NOTE | 2019-08-04 16:48 | REP ---
Clinical: Fall. Pain. Technique: AP, lateral, flexion/extension, bilateral oblique, swimmers, and open mouth views of the cervical spine. Findings: Moderate/advanced multilevel degenerative changes are suggested. Examination is limited due to positioning and overlying soft tissue opacities. No obvious acute fracture / compression injury or subluxation identified Impression: Limited examination demonstrates moderate multilevel degenerative changes. Electronically Signed by Donnie Tucker MD 08/04/2019 04:40 P
== END ==
LOC: M WUC 15:59
PROVIDERS: ATTEND Physician Assistant
DX: S13.4XXA Sprain of ligaments of cervical spine, initial encounter (principal); S40.011A Contusion of right shoulder, initial encounter; X58.XXXA Exposure to other specified factors, initial encounter; Y92.89 Other specified places as the place of occurrence of the external cause

== ENCOUNTER → 2019-08-27 | Outpatient (REF) | payer MEDICARE, MEDICAID ==
[~2019-08-27] MED LIST changes: +BACL10TA2 PO; +CYMB1CAP5 PO; +HYDR-3713 PO; +ONDA4TAB6 PO; +REME15TA2 PO; +SUCR1TA PO
[2019-08-27 13:05] LABS: BASO # 0.1 10^3/uL (0.0-0.2); BASO % 0.9 % (0.0-1.0); EOS # 0.3 10^3/uL (0.0-0.5); EOS % 3.6 % (0.0-3.0); HEMATOCRIT 44.9 % (42.0-52.0); HEMOGLOBIN 14.8 g/dl (13.5-17.5); LYMPH # 2.7 10^3/uL (1.5-5.0); LYMPH % 30.6 % (24.0-44.0); MEAN CORPUSCULAR VOLUME 90.9 fl (80.0-96.0); MONO # 0.8 10^3/uL (0.0-0.8); MONO % 9.5 % (0.0-5.0); NEUTROPHILS # 4.7 10^3/uL (1.5-8.5); NEUTROPHILS % 54.4 % (36.0-66.0); PLATELET COUNT, AUTOMATED 200 10^3/uL (150-450); RED BLOOD COUNT 4.94 10^6/uL (4.30-6.10); WHITE BLOOD COUNT 8.7 10^3/uL (4.0-10.0)
[2019-08-27 13:17] LABS: ALBUMIN 3.6 GM/DL (3.2-5.2); ALT/SGPT 22 U/L (12-78); BILIRUBIN,TOTAL 0.7 MG/DL (0.2-1.0); BLOOD UREA NITROGEN 20 MG/DL (7-18); CARBON DIOXIDE LEVEL 29 MEQ/L (21-32); CHLORIDE LEVEL 105 MEQ/L (98-107); CHOLESTEROL LEVEL 168 MG/DL (<200); CHOLESTEROL RISK RATIO 2.847 (<5); CPK CREATINE PHOSPHOKINASE 264 U/L (39-308); CREATININE FOR GFR 1.22 MG/DL (0.70-1.30); FREE T4 0.91 NG/DL (0.76-1.46); GLOMERULAR FILTRATION RATE > 60.0 (>56); GLUCOSE, FASTING 96 MG/DL (70-100); HDL CHOLESTEROL 59 MG/DL (>40); LDL CHOLESTEROL 76 MG/DL (<100); NON-HDL-C 109 MG/DL; POTASSIUM SERUM 4.3 MEQ/L (3.5-5.1); SODIUM LEVEL 140 MEQ/L (136-145); TOTAL PROTEIN 6.7 GM/DL (6.4-8.2); TRIGLYCERIDES LEVEL 164 MG/DL (<150)
[2019-08-27 13:34] LABS: HEMOGLOBIN A1c 5.8 %
[2019-08-27 18:10] LABS: INR 0.97; PARTIAL THROMBOPLASTIN TIME 31.6 SECONDS (25.0-38.4); PROTHROMBIN TIME 12.6 SECONDS (11.8-14.0)
== END ==
LOC: M SFHCPLAZ 09:28
PROVIDERS: ATTEND Physician Assistant Medical
DX: I10 Essential (primary) hypertension (principal); E66.01 Morbid (severe) obesity due to excess calories; F32.9 Major depressive disorder, single episode, unspecified; E78.2 Mixed hyperlipidemia; Z12.5 Encounter for screening for malignant neoplasm of prostate; Z79.899 Other long term (current) drug therapy
CPT/HCPCS: 80053; 80061; 82550; 83036; 84439; 84443; 85025; 85610; 85730; 93005; G0103; G0463

== ENCOUNTER 2019-09-02 07:00 | Day surgery (SDC) | payer MEDICARE, MEDICAID ==
[~2019-09-02] VITALS: Ht 193 cm; Wt 147.4 kg
[~2019-09-02 07:00] MED LIST changes: -HYDR-3713 PO; +LIDOCAINE 1% MDV 20ML VIAL SQ PRN; -ONDA4TAB6 PO
[2019-09-02] MEDS ORDERED: LR 1,000 ML IV ONE (07:15)
[2019-09-02] MEDS ORDERED: ceFAZolin SOD 2 GM in IV 1 EA IV ONE (07:15)
[2019-09-02] MEDS ORDERED: LIDOCAINE 1% MDV 20ML VIAL As Ordered ONE (07:24)
[2019-09-02] MEDS ORDERED: BUPIVACAINE HCL 0.5% 10 ML VIAL As Ordered ONE (07:24)
[2019-09-02] MEDS ORDERED: dexameTHASONE 4 MG/ML 1ML VIAL (J1100) As Ordered ONE ×2 (07:25→08:21)
[2019-09-02] MEDS ORDERED: LIDOCAINE 2% INJ 100 MG/5 ML SDV (FOR ANES.) As Ordered ONE (07:27)
[2019-09-02] MEDS ORDERED: propofoL 200 MG/20 ML VIAL As Ordered ONE (07:27)
[2019-09-02] MEDS ORDERED: MIDAZOLAM INJ 2 MG/2 ML VIAL (J2250) As Ordered ONE (07:28)
[2019-09-02] MEDS ORDERED: fentaNYL 100 MCG/2 ML INJECTION (J3010) As Ordered ONE (07:28)
[2019-09-02] MEDS ORDERED: KETOROLAC 60 MG/2 ML VIAL (J1885) As Ordered ONE (07:40)
[2019-09-02] MEDS ORDERED: ONDANSETRON 4MG/2ML VIAL (J2405) As Ordered ONE (07:40)
[2019-09-02] MEDS ORDERED: KETAMINE HCL 200 MG/20 ML VIAL As Ordered ONE (07:56)
[2019-09-02] MEDS ORDERED: METOCLOPRAMIDE INJ 10MG/2ML VIAL (J2765) As Ordered ONE (08:21)
[2019-09-02] MEDS ORDERED: HYDR-3713 PO (08:57)
[2019-09-02] MEDS ORDERED: ONDA4TAB6 PO (08:57)
[2019-09-02 09:35] VITALS: BP 122/79
--- NOTE | 2019-09-02 13:54 | RO ---
DATE OF PROCEDURE: 09/02/2019 PREPROCEDURE DIAGNOSIS: Left second toe ossicle. POSTPROCEDURE DIAGNOSIS: Left second toe ossicle. PROCEDURE: Excision of ossicle. SURGEON: Severiano Edwards DPM TECHNICAL COMMUNICATOR: ANESTHESIA: Monitored anesthesia care and preoperative injection of 10 mL of 1:1 mixture of 1% lidocaine plain and 0.5% Marcaine plain. ESTIMATED BLOOD LOSS: Minimal. MATERIALS: 3-0 Vicryl, 4-0 Vicryl and 4-0 nylon. INJECTABLES: 1 mL of Decadron 4 mg per mL. COMPLICATIONS: None. SPECIMEN: Left second toe ossicle. CONDITION: Stable. DESCRIPTION OF PROCEDURE: Hunter Marrufo is a 48-year-old male who presents to [facility] with painful ossicle on his left second metatarsophalangeal joint. He presents today for surgical excision. The patient, site and side were identified and marked in preoperative holding area. Consent was reviewed. All complications and alternatives to the procedure were explained to the patient in detail and all questions were answered. The patient was brought to the operating room and placed on the operating room table in supine position. Monitored anesthesia care was delivered by the anesthesia team. Preoperative injection of 10 mL of 1:1 mixture of 1% Lidocaine plain and 0.5% Marcaine plain were injected into the foot. Left foot was prepped and draped in a normal sterile fashion. Tourniquet was applied to the left ankle and inflated to 250 mmHg. Dorsal incision was drawn over the second metatarsophalangeal joint and carried through with a #15 blade. Dissection was carried down to the tarsophalangeal capsule and linear capsulotomy was performed. Dissection was carried until the ossicle was identified at the plantar medial aspect of the joint. This was carefully freed using tenotomy scissors and sent for pathology. Cartilage was inspected and noted to be in good condition. Some small bone fragments were noted on the lateral aspect of the joint and these too were removed. The site was irrigated with normal saline. Capsular repair was performed with 3-0 Vicryl, subcutaneous closure with 4-0 Vicryl and skin closure with 4-0 nylon. 1 mL of Decadron was injected and sterile dressing was applied. The patient was brought to the postanesthesia care unit (PACU) with neurovascular status intact. He will be weightbearing as tolerated. Followup in the office in 2 days. DINORAH
== END 2019-09-02 09:45 | disposition home or self-care (01) ==
LOC: M SDC 07:00
PROVIDERS: ATTEND Podiatrist Foot & Ankle Surgery
DX: M89.8X7 Other specified disorders of bone, ankle and foot (principal); I10 Essential (primary) hypertension; J45.30 Mild persistent asthma, uncomplicated; G43.109 Migraine with aura, not intractable, without status migrainosus; R73.01 Impaired fasting glucose; E78.5 Hyperlipidemia, unspecified; I44.0 Atrioventricular block, first degree; N40.1 Benign prostatic hyperplasia with lower urinary tract symptoms; F32.9 Major depressive disorder, single episode, unspecified; Z79.899 Other long term (current) drug therapy; Z79.51 Long term (current) use of inhaled steroids
CPT/HCPCS: 28899; 88300; J0690; J1100; J1885; J2250; J2405; J2765; J3010

== ENCOUNTER 2020-01-15 14:25 | Inpatient (IN) | payer MEDICARE, MEDICAID ==
[~2020-01-15 14:25] MED LIST changes: +ACETAMINOPHEN TAB 650MG DOSE (2X325MG) ONE; +BACLOFEN 10 MG TAB ONE; +DIVALPROEX 500 MG TAB ONE; +HYDR-3713 PO; -LIDOCAINE 1% MDV 20ML VIAL SQ PRN; +ONDA4TAB6 PO
[2020-01-15] MEDS ORDERED: GASTROGRAFIN SOLUTION 30ML (Q9963) ONE (14:52)
[2020-01-15] MEDS ORDERED: ONDANSETRON 4MG/2ML VIAL ONE (14:52)
[2020-01-15] MEDS ORDERED: ONDANSETRON 4MG/2ML VIAL As Ordered ONE (14:52)
[2020-01-15] MEDS ORDERED: MORPHINE 4 MG/ML 1ML VIAL/SYRINGE (J2270) As Ordered ONE ×2 (14:52→19:05)
[2020-01-15] MEDS ORDERED: MORPHINE 4 MG/ML 1ML VIAL/SYRINGE (J2270) ONE ×2 (14:52→19:05)
[2020-01-15] MEDS ORDERED: GASTROGRAFIN SOLUTION 30ML (Q9963) As Ordered ONE (16:45)
[2020-01-15] MEDS ORDERED: BACLOFEN 10 MG TAB As Ordered ONE (23:49)
[2020-01-15] MEDS ORDERED: DIVALPROEX 500 MG TAB As Ordered ONE (23:49)
[2020-01-15] MEDS ORDERED: ACETAMINOPHEN TAB 650MG DOSE (2X325MG) As Ordered ONE (23:53)
[2020-01-16] MEDS ORDERED: MORPHINE 2 MG/ML 1ML VIAL (J2270) ONE ×2 (02:02→06:22)
[2020-01-16] MEDS ORDERED: MORPHINE 2 MG/ML 1ML VIAL (J2270) As Ordered ONE ×2 (02:02→06:22)
[2020-01-16] MEDS ORDERED: ACETAMINOPHEN TAB 650MG DOSE (2X325MG) ONE ×2 (09:38→17:03)
[2020-01-16] MEDS ORDERED: DULoxetine 20 MG CAP (CYMBALTA) ONE (09:38)
[2020-01-16] MEDS ORDERED: DULoxetine 20 MG CAP (CYMBALTA) As Ordered ONE (09:38)
[2020-01-16] MEDS ORDERED: ACETAMINOPHEN TAB 650MG DOSE (2X325MG) As Ordered ONE (09:38)
[2020-01-16] MEDS ORDERED: KCL 40MEQ IN 0.9%NACL 1000ML ONE ×2 (10:00→18:30)
[2020-01-16] MEDS ORDERED: ONDANSETRON 4MG/2ML VIAL As Ordered ONE (11:52)
[2020-01-16] MEDS ORDERED: ONDANSETRON 4MG/2ML VIAL ONE (11:52)
[2020-01-16] MEDS ORDERED: BACLOFEN 10 MG TAB ONE ×2 (12:22→21:44)
[2020-01-16] MEDS ORDERED: BACLOFEN 10 MG TAB As Ordered ONE ×2 (12:22→21:44)
[2020-01-16] MEDS ORDERED: DIVALPROEX 500 MG TAB ONE (12:22)
[2020-01-16] MEDS ORDERED: DIVALPROEX 500 MG TAB As Ordered ONE (12:22)
[2020-01-16] MEDS ORDERED: ACETAMINOPHEN 650MG ER TAB (TYLENOL ARTHRITIS) ONE ×2 (13:00→21:44)
[2020-01-16] MEDS ORDERED: KCL 10MEQ IN STERILE WATER 100ML ONE (17:59)
[2020-01-16] MEDS ORDERED: KCL 40MEQ IN 0.9%NACL 1000ML As Ordered ONE (18:30)
[2020-01-16] MEDS ORDERED: DIVALPROEX 500MG *ER* TAB ONE (21:44)
[2020-01-16] MEDS ORDERED: ACETAMINOPHEN 650MG ER TAB (TYLENOL ARTHRITIS) As Ordered ONE (21:45)
[2020-01-16] MEDS ORDERED: DIVALPROEX 500MG *ER* TAB As Ordered ONE (21:45)
[2020-01-17] MEDS ORDERED: KCL 40MEQ IN 0.9%NACL 1000ML ONE ×3 (04:46→21:00)
[2020-01-17] MEDS ORDERED: KCL 40MEQ IN 0.9%NACL 1000ML As Ordered ONE ×2 (04:46→09:20)
[2020-01-17] MEDS ORDERED: ACETAMINOPHEN 650MG ER TAB (TYLENOL ARTHRITIS) ONE ×3 (06:40→21:18)
[2020-01-17] MEDS ORDERED: ACETAMINOPHEN 650MG ER TAB (TYLENOL ARTHRITIS) As Ordered ONE ×3 (06:40→21:18)
[2020-01-17] MEDS ORDERED: BACLOFEN 10 MG TAB ONE ×2 (09:19→21:18)
[2020-01-17] MEDS ORDERED: DIVALPROEX 500MG *ER* TAB ONE ×2 (09:19→21:18)
[2020-01-17] MEDS ORDERED: BACLOFEN 10 MG TAB As Ordered ONE ×2 (09:19→21:18)
[2020-01-17] MEDS ORDERED: DIVALPROEX 500MG *ER* TAB As Ordered ONE ×2 (09:19→21:18)
[2020-01-18] MEDS ORDERED: ACETAMINOPHEN 650MG ER TAB (TYLENOL ARTHRITIS) As Ordered ONE (05:10)
[2020-01-18] MEDS ORDERED: ACETAMINOPHEN 650MG ER TAB (TYLENOL ARTHRITIS) ONE (05:10)
[2020-01-18] MEDS ORDERED: KCL 40MEQ IN 0.9%NACL 1000ML ONE (09:00)
[2020-01-18] MEDS ORDERED: DIVALPROEX 500MG *ER* TAB ONE (09:23)
[2020-01-18] MEDS ORDERED: DULoxetine 30 MG CAP (CYMBALTA) ONE (09:23)
[2020-01-18] MEDS ORDERED: BACLOFEN 10 MG TAB ONE (09:23)
[2020-02-21 16:09] LABS: APPEARANCE, URINE HAZY (CLEAR); BACTERIA, URINE AUTO NEGATIVE (NEGATIVE); BILIRUBIN, URINE AUTO NEGATIVE (NEGATIVE); BLOOD, URINE BLOOD NEGATIVE (NEGATIVE); COLOR, URINE YELLOW (YELLOW); GLUCOSE, URINE (UA) AUTO NEGATIVE (NEGATIVE); KETONE, URINE AUTO NEGATIVE (NEGATIVE); LEUKOCYTE ESTERASE, URINE AUTO NEGATIVE (NEGATIVE); MUCUS, URINE SMALL (NEGATIVE); NITRITE, URINE AUTO NEGATIVE (NEGATIVE); PROTEIN, URINE AUTO NEGATIVE (NEGATIVE); RBC, URINE AUTO 2 /HPF (0-3); SPECIFIC GRAVITY URINE AUTO 1.028 (1.002-1.035); SQUAMOUS EPITHELIAL CELL UR AU 3 /HPF (0-6); UROBILINOGEN, URINE AUTO 0.2 mg/dL (0.0-2.0); WBC, URINE AUTO 2 /HPF (0-3)
[2020-02-21 17:08] LABS: BASO # 0.1 10^3/uL (0.0-0.2); BASO % 0.5 % (0.0-1.0); EOS # 0.2 10^3/uL (0.0-0.5); EOS % 2.1 % (0.0-3.0); HEMATOCRIT 52.5 % (42.0-52.0); HEMOGLOBIN 17.5 g/dl (13.5-17.5); LYMPH # 2.4 10^3/uL (1.5-5.0); LYMPH % 20.7 % (24.0-44.0); MEAN CORPUSCULAR HEMOGLOBIN 29.1 pg (27.0-33.0); MEAN CORPUSCULAR HGB CONC 33.3 g/dl (32.0-36.5); MEAN CORPUSCULAR VOLUME 87.4 fl (80.0-96.0); MONO # 1.1 10^3/uL (0.0-0.8); MONO % 9.9 % (0.0-5.0); NEUTROPHILS # 7.6 10^3/uL (1.5-8.5); NEUTROPHILS % 66.2 % (36.0-66.0); PLATELET COUNT, AUTOMATED 214 10^3/uL (150-450); RED BLOOD COUNT 6.01 10^6/uL (4.30-6.10); WHITE BLOOD COUNT 11.4 10^3/uL (4.0-10.0)
[2020-02-21 20:00] LABS: APPEARANCE, URINE HAZY (CLEAR); BACTERIA, URINE AUTO NEGATIVE (NEGATIVE); BILIRUBIN, URINE AUTO NEGATIVE (NEGATIVE); BLOOD, URINE BLOOD NEGATIVE (NEGATIVE); COLOR, URINE YELLOW (YELLOW); GLUCOSE, URINE (UA) AUTO NEGATIVE (NEGATIVE); KETONE, URINE AUTO TRACE mg/dL (NEGATIVE); LEUKOCYTE ESTERASE, URINE AUTO NEGATIVE (NEGATIVE); MUCUS, URINE SMALL (NEGATIVE); NITRITE, URINE AUTO NEGATIVE (NEGATIVE); PROTEIN, URINE AUTO NEGATIVE (NEGATIVE); RBC, URINE AUTO 1 /HPF (0-3); SPECIFIC GRAVITY URINE AUTO 1.027 (1.002-1.035); SQUAMOUS EPITHELIAL CELL UR AU 1 /HPF (0-6); UROBILINOGEN, URINE AUTO 0.2 mg/dL (0.0-2.0); WBC, URINE AUTO 1 /HPF (0-3)
[2020-02-21 21:36] LABS: BASO % 0.4 % (0.0-1.0); EOS # 0.2 10^3/uL (0.0-0.5); EOS % 2.5 % (0.0-3.0); HEMATOCRIT 47.4 % (42.0-52.0); HEMOGLOBIN 15.8 g/dl (13.5-17.5); LYMPH # 1.5 10^3/uL (1.5-5.0); MEAN CORPUSCULAR HEMOGLOBIN 29.3 pg (27.0-33.0); MEAN CORPUSCULAR HGB CONC 33.3 g/dl (32.0-36.5); MEAN CORPUSCULAR VOLUME 87.9 fl (80.0-96.0); MONO # 0.7 10^3/uL (0.0-0.8); MONO % 8.9 % (0.0-5.0); NEUTROPHILS # 5.4 10^3/uL (1.5-8.5); NEUTROPHILS % 68.8 % (36.0-66.0); PLATELET COUNT, AUTOMATED 172 10^3/uL (150-450); RED BLOOD COUNT 5.39 10^6/uL (4.30-6.10); WHITE BLOOD COUNT 7.9 10^3/uL (4.0-10.0)
--- NOTE | 2020-02-23 12:02 | CR ---
DATE: 01/16/2020 CHIEF COMPLAINT: Abdominal pain. HISTORY OF PRESENT ILLNESS: The patient is a 49-year-old male, who presented to the emergency room with complaints of generalized abdominal pain, some nausea. This has been going on for a couple of days, getting slightly worse. In the emergency room, he had essentially normal labs and a CT showed slight distension of some loops of small bowel in the right lower quadrant. Otherwise, no signs of any masses or obstruction. He had contrast all the way into the colon and the rectum. He claims that he has been having loose bowel movements in the EE. No nausea or vomiting. He does have an NG tube that was placed for possible bowel obstruction. However, that is just putting out clear liquid at this time. He denies any nausea or vomiting, no fevers or chills and no current abdominal pains. PAST MEDICAL HISTORY: 1. Hyperlipidemia 2. Asthma. 3. Depression 4. Hypertension. PAST SURGICAL HISTORY: Umbilical hernia repairs, most recently last October with Dr. Gonzalez. He has knee arthroscopy, left foot repair, left ankle repair, ventral hernia repair, both lap and robotic for a total of four ventral hernia repairs in the past. ALLERGIES: None. MEDICATIONS: Please see med-rec. REVIEW OF SYSTEMS: Pertinent positives and negatives as stated in the history of present illness. PHYSICAL EXAMINATION: The patient is alert and oriented times three in no acute distress. Vitals are stable, afebrile. HEENT: Pupils equally round and reactive to light and accommodation. Heart: S1, S2, regular rate and rhythm. Lungs: Clear to auscultation bilaterally. Abdomen: Soft, obese. There is midline scarring from previous surgeries. No palpable hernias and no tenderness to palpation. Extremities: No clubbing, cyanosis or edema. LABORATORY DATA: Within normal limits. ASSESSMENT AND PLAN: 49-year-old male with an ileus versus possible partial bowel obstruction on CT. However, on examination, it appears that things have resolved. He may have had a small urinary tract infection that has resulted in a partial ileus that has resolved. At this time, recommend clamping NG tube, start him on a liquid diet and see how he does. If he can tolerate that today, the NG can be removed. He can be advanced on his diet and discharged home. He claims he has had loose stools for a while, but sounds like his diet is poor. I recommended to him to increase exercise and increase the fiber in his diet to help cut back on the loose stools and also to reduce his frequency. All of his questions were answered., orders were placed and I will continue to follow him during his stay. DINORAH
[2020-03-09 10:25] LABS: HEMATOCRIT 43.9 % (42.0-52.0); HEMOGLOBIN 14.2 g/dl (13.5-17.5); MEAN CORPUSCULAR HEMOGLOBIN 29.2 pg (27.0-33.0); MEAN CORPUSCULAR HGB CONC 32.3 g/dl (32.0-36.5); MEAN CORPUSCULAR VOLUME 90.1 fl (80.0-96.0); PLATELET COUNT, AUTOMATED 148 10^3/uL (150-450); RED BLOOD COUNT 4.87 10^6/uL (4.30-6.10); WHITE BLOOD COUNT 7.3 10^3/uL (4.0-10.0)
[2020-03-09 10:59] LABS: HEMATOCRIT 41.4 % (42.0-52.0); HEMOGLOBIN 13.2 g/dl (13.5-17.5); MEAN CORPUSCULAR HEMOGLOBIN 29.1 pg (27.0-33.0); MEAN CORPUSCULAR HGB CONC 31.9 g/dl (32.0-36.5); MEAN CORPUSCULAR VOLUME 91.2 fl (80.0-96.0); PLATELET COUNT, AUTOMATED 133 10^3/uL (150-450); RED BLOOD COUNT 4.54 10^6/uL (4.30-6.10); WHITE BLOOD COUNT 5.8 10^3/uL (4.0-10.0)
--- NOTE | 2020-03-16 12:02 | IPN ---
DATE: 01/17/2020 Patient is doing well overnight, tolerating his nasogastric (NG) tube clamped with a clear liquid diet. Denies nausea or vomiting. No fevers or chills. He did have some slight nausea yesterday in the interim after the NG tube was clamped but he never had to be returned back to suction and he has now had it clamped for almost 24 hours without any emesis. He is continuing to pass flatus and have bowel movements. His abdomen is soft and nontender with no abdominal pains. His CT again had no signs of obstruction on admission. His symptoms were likely secondary to a mild gastroenteritis versus a mild ileus. RECOMMENDATIONS: Advance him to a regular diet and plan for discharge home either today or tomorrow pending hospitalist evaluation. No further surgical intervention is necessary. We can be called back if there is any questions or concerns. I did already discuss his case with Dr. Ibrahim this morning. DINORAH
[2020-03-26 11:42] LABS: ALBUMIN 3.8 GM/DL (3.2-5.2); BILIRUBIN,DIRECT 0.1 MG/DL (0.0-0.2); BILIRUBIN,TOTAL 0.9 MG/DL (0.2-1.0); CALCIUM LEVEL 9.6 MG/DL (8.5-10.1); CREATININE FOR GFR 1.81 MG/DL (0.70-1.30); GLOMERULAR FILTRATION RATE 42.3 (>56); MAGNESIUM LEVEL 1.7 MG/DL (1.8-2.4); POTASSIUM SERUM 3.3 MEQ/L (3.5-5.1); TOTAL PROTEIN 7.3 GM/DL (6.4-8.2)
[2020-03-28 00:13] LABS: CALCIUM LEVEL 8.2 MG/DL (8.5-10.1); CREATININE FOR GFR 1.51 MG/DL (0.70-1.30); GLOMERULAR FILTRATION RATE 52.1 (>56); MAGNESIUM LEVEL 1.7 MG/DL (1.8-2.4); POTASSIUM SERUM 3.4 MEQ/L (3.5-5.1)
[2020-03-28 00:13] LABS: POTASSIUM RANDOM URINE 68.7 MEQ/L
[2020-04-12 10:19] LABS: ALBUMIN 2.8 GM/DL (3.2-5.2); ALT/SGPT 16 U/L (12-78); BILIRUBIN,TOTAL 0.4 MG/DL (0.2-1.0); BLOOD UREA NITROGEN 12 MG/DL (7-18); CALCIUM LEVEL 8.3 MG/DL (8.5-10.1); CARBON DIOXIDE LEVEL 25 MEQ/L (21-32); CHLORIDE LEVEL 114 MEQ/L (98-107); CREATININE FOR GFR 1.11 MG/DL (0.70-1.30); GLOMERULAR FILTRATION RATE > 60.0 (>56); GLUCOSE, FASTING 83 MG/DL (70-100); MAGNESIUM LEVEL 2.2 MG/DL (1.8-2.4); SODIUM LEVEL 142 MEQ/L (136-145); TOTAL PROTEIN 5.6 GM/DL (6.4-8.2)
[2020-04-15 08:52] LABS: BILIRUBIN,TOTAL 0.6 MG/DL (0.2-1.0); CALCIUM LEVEL 8.1 MG/DL (8.5-10.1); CREATININE FOR GFR 1.38 MG/DL (0.70-1.30); GLOMERULAR FILTRATION RATE 57.8 (>56); MAGNESIUM LEVEL 1.9 MG/DL (1.8-2.4); POTASSIUM SERUM 3.9 MEQ/L (3.5-5.1); TOTAL PROTEIN 5.9 GM/DL (6.4-8.2)
== END 2020-01-18 11:30 | disposition home or self-care (01) | DRG 389 ==
LOC: M ED 14:25 → M MS5PR 20:20
PROVIDERS: ADMIT Internal Medicine; ATTEND Internal Medicine
DX: K56.600 Partial intestinal obstruction, unspecified as to cause (principal); N17.9 Acute kidney failure, unspecified; E78.5 Hyperlipidemia, unspecified; J45.909 Unspecified asthma, uncomplicated; F32.9 Major depressive disorder, single episode, unspecified; I10 Essential (primary) hypertension; J44.9 Chronic obstructive pulmonary disease, unspecified; G43.909 Migraine, unspecified, not intractable, without status migrainosus; E87.6 Hypokalemia; Z79.899 Other long term (current) drug therapy

== ENCOUNTER → 2020-01-20 | Outpatient (REF) | payer MEDICARE, MEDICAID ==
[~2020-01-20] MED LIST changes: -ACETAMINOPHEN TAB 650MG DOSE (2X325MG) ONE; -BACLOFEN 10 MG TAB ONE; -DIVALPROEX 500 MG TAB ONE
[2020-02-18 22:46] LABS: BASO # 0.1 10^3/uL (0.0-0.2); BASO % 0.8 % (0.0-1.0); EOS # 0.3 10^3/uL (0.0-0.5); EOS % 3.5 % (0.0-3.0); HEMOGLOBIN 15.3 g/dl (13.5-17.5); LYMPH # 3.2 10^3/uL (1.5-5.0); LYMPH % 33.3 % (24.0-44.0); MEAN CORPUSCULAR HEMOGLOBIN 29.5 pg (27.0-33.0); MEAN CORPUSCULAR HGB CONC 31.9 g/dl (32.0-36.5); MEAN CORPUSCULAR VOLUME 92.5 fl (80.0-96.0); MONO # 0.9 10^3/uL (0.0-0.8); MONO % 9.2 % (0.0-5.0); NEUTROPHILS % 52.4 % (36.0-66.0); PLATELET COUNT, AUTOMATED 218 10^3/uL (150-450); RED BLOOD COUNT 5.19 10^6/uL (4.30-6.10); WHITE BLOOD COUNT 9.6 10^3/uL (4.0-10.0)
[2020-04-05 12:16] LABS: GLUCOSE, FASTING SEE SEPARATE REPORT
== END ==
LOC: M SFHCPLAZ 11:01
PROVIDERS: ATTEND Physician Assistant Medical
DX: R86.6 Abnormal cytological findings in specimens from male genital organs (principal); M17.11 Unilateral primary osteoarthritis, right knee

== ENCOUNTER → 2020-02-02 | Outpatient (CLI) | payer MEDICARE, MEDICAID ==
--- NOTE | 2020-03-08 07:49 | REP ---
RIGHT KNEE SERIES: 5-VIEWS HISTORY: Pain three weeks after injury. COMPARISON: None. FINDINGS: Five views of the right knee demonstrate mild medial compartment spurring. Bones, joints, and soft tissues are otherwise unremarkable. No fracture or subluxation is seen. No evidence of joint effusion. IMPRESSION: Minimal spurring of the medial compartment. Otherwise negative. No acute bony abnormality. MTDD
== END ==
LOC: M WUC 15:57
PROVIDERS: ATTEND Physician Assistant
DX: S83.421A Sprain of lateral collateral ligament of right knee, initial encounter (principal); X58.XXXA Exposure to other specified factors, initial encounter; Y92.9 Unspecified place or not applicable

== ENCOUNTER → 2020-02-17 | Outpatient (CLI) | payer MEDICARE, MEDICAID ==
[2020-02-17 11:49] LABS: HEMATOCRIT 46.3 % (42.0-52.0); HEMOGLOBIN 14.8 g/dl (13.5-17.5); MEAN CORPUSCULAR VOLUME 90.6 fl (80.0-96.0); PLATELET COUNT, AUTOMATED 175 10^3/uL (150-450); RED BLOOD COUNT 5.11 10^6/uL (4.30-6.10); WHITE BLOOD COUNT 7.4 10^3/uL (4.0-10.0)
[2020-02-17 12:03] LABS: HEMOGLOBIN A1c 6.1 %
[2020-02-17 12:31] LABS: ALBUMIN 3.4 GM/DL (3.2-5.2); BILIRUBIN,TOTAL 0.5 MG/DL (0.2-1.0); CALCIUM LEVEL 8.9 MG/DL (8.5-10.1); CREATININE FOR GFR 1.35 MG/DL (0.70-1.30); FREE T4 0.75 NG/DL (0.76-1.46); GLOMERULAR FILTRATION RATE 59.3 (>56); POTASSIUM SERUM 3.7 MEQ/L (3.5-5.1); THYROID STIMULATING HORMONE 1.92 uIU/ML (0.358-3.740); TOTAL PROTEIN 6.6 GM/DL (6.4-8.2); VALPROIC ACID (DEPAKOTE) 53.4 UG/ML (50.0-100.0)
== END ==
LOC: M LAB 08:32
PROVIDERS: ATTEND Family Medicine
DX: E78.5 Hyperlipidemia, unspecified (principal); I10 Essential (primary) hypertension; Z79.899 Other long term (current) drug therapy

== ENCOUNTER → 2020-03-07 | Outpatient (CLI) | payer MEDICARE, MEDICAID ==
--- NOTE | 2020-03-16 09:44 | REP ---
RENAL ULTRASOUND CLINICAL: Chronic renal disease stage III. TECHNIQUE: Real-time parrish scale ultrasound examination using curved array transducer. COMPARISON: 01/16/2020. FINDINGS: The kidneys are normal in reniform shape with mildly increased central sinus fat consistent with chronic medical renal disease. No hydronephrosis, nephrolithiasis, cystic or renal mass lesion appreciated. Right kidney measures 12.5 x 6.4 x 5.7 cm. Left kidney measures 12.0 x 6.2 x 6.6 cm. Bladder is normal. IMPRESSION: Findings consistent with chronic renal disease. No hydronephrosis or obvious acute abnormality. MTDD
== END ==
LOC: M RAD 14:35
PROVIDERS: ATTEND Family Medicine
DX: N18.3 Chronic kidney disease, stage 3 (moderate) (principal)

== ENCOUNTER → 2020-03-10 | Outpatient (CLI) | payer MEDICARE, MEDICAID | LOC: M LABSMTC 09:42 | PROVIDERS: ATTEND Physician Assistant Medical | DX: Z20.828 Contact with and (suspected) exposure to other viral communicable diseases (principal) | CPT/HCPCS: C9803; U0003 ==

== ENCOUNTER 2020-03-15 07:09 | Outpatient (CLI) | payer MEDICARE, MEDICAID ==
[2020-03-15 11:30] VITALS: BP 130/90
--- NOTE | 2020-03-15 12:00 | REPVR ---
PROCEDURE INFORMATION: Exam: MR Cervical Spine Without Contrast Exam date and time: 03/15/2020 11:05 AM Age: 49 years old Clinical indication: Pain; Other: H/a; Additional info: Headache, cervicalgia TECHNIQUE: Imaging protocol: Multiplanar magnetic resonance images of the cervical spine without contrast. COMPARISON: MRI-Spine,Cervical without con 07/15/2015 1:05 PM FINDINGS: Image quality is degraded by motion. Vertebrae: There is no fracture or listhesis. Normal vertebral body alignment and heights are preserved. Spinal cord: There is a suggestion of abnormally increased the substance of the cord extending from C2/3 to C6/7. C2-C3: There is a shallow disc osteophyte complex. There is mild facet hypertrophy. There is mild left neural foraminal narrowing. C3-C4: There is a diffuse disc osteophyte complex. There is mild facet hypertrophy. There is moderate bilateral neural foraminal narrowing. There is mild canal stenosis. C4-C5: There is a shallow disc osteophyte complex. There is moderate facet hypertrophy there is mild left neural foraminal narrowing. C5-C6: There is a diffuse disc osteophyte complex. There is moderate facet hypertrophy. There is severe right and moderate to severe left neural foraminal narrowing. C6-C7: There is a diffuse disc osteophyte complex. There is moderate facet hypertrophy. There is severe right and moderate to severe left neural foraminal narrowing. There is moderate canal stenosis. C7-T1: No significant disc disease. No significant spinal stenosis. Vertebral arteries: Expected flow voids in the vertebral arteries. Soft tissues: Unremarkable. IMPRESSION: 1. Suggestion of abnormally increased T2 weighted signal within the substance of the cord from C2/3 to C6/7 versus artifact reflecting motion. Repeat imaging with gadolinium may be of benefit for better evaluation. Demyelinating disease and transverse myelitis are considerations. 2. Degenerative disc disease and spondylosis, with multilevel moderate to severe neural foraminal narrowing. Electronically signed by: Rosa Fong On 03/15/2020 12:00:22 PM
--- NOTE | 2020-03-15 12:43 | REPVR ---
PROCEDURE INFORMATION: Exam: MR Head Without Contrast Exam date and time: 03/15/2020 11:05 AM Age: 49 years old Clinical indication: Other: Headache; Additional info: Headache, cervicalgia TECHNIQUE: Imaging protocol: MR of the head without contrast. COMPARISON: No relevant prior studies available. FINDINGS: Image quality is degraded by motion. Brain: There is no extra-axial collection or intra-axial mass. Normal parenchymal signal is grossly preserved. There is no diffusion restriction Cerebral ventricles: Normal. No ventriculomegaly. Bones/joints: Unremarkable. Paranasal sinuses: There is mild mucosal thickening along the anterior wall of the right maxillary sinus. Mastoid air cells: Normal as visualized. No mastoid effusion. Orbits: Unremarkable. Soft tissues: Unremarkable. IMPRESSION: Motion degraded examination. No acute abnormality. Electronically signed by: Rosa Fong On 03/15/2020 12:42:52 PM
== END 2020-03-15 11:30 | disposition home or self-care (01) ==
LOC: M SDC 07:09
PROVIDERS: ATTEND Physician Assistant Medical
DX: M50.30 Other cervical disc degeneration, unspecified cervical region (principal); M47.812 Spondylosis without myelopathy or radiculopathy, cervical region; M48.02 Spinal stenosis, cervical region; R51 Headache; H53.8 Other visual disturbances; M54.2 Cervicalgia

== ENCOUNTER → 2020-04-16 | Outpatient (CLI) | payer MEDICARE, MEDICAID | LOC: M LABSMTC 08:12 | PROVIDERS: ATTEND Anesthesiology | DX: Z01.818 Encounter for other preprocedural examination (principal); Z20.828 Contact with and (suspected) exposure to other viral communicable diseases | CPT/HCPCS: C9803; U0003 ==

== ENCOUNTER 2020-04-20 11:26 | Day surgery (SDC) | payer MEDICARE, MEDICAID ==
[~2020-04-20] VITALS: Ht 193 cm; Wt 175.5 kg
[~2020-04-20 11:26] MED LIST changes: +ceFAZolin SOD 1 GM in D5W MINI-BAG PLUS 50 ML IV ONE; +ceFAZolin SOD 2 GM in IV 1 EA IV ONE
[2020-04-20] MEDS ORDERED: MIDAZOLAM INJ 2MG/2ML VIAL (J2250 PER 1MG) As Ordered ONE (12:18)
[2020-04-20] MEDS ORDERED: fentaNYL 100 MCG/2 ML INJECTION (J3010) As Ordered ONE (12:19)
[2020-04-20] MEDS ORDERED: propofoL 500 MG/50 ML VIAL As Ordered ONE (12:19)
[2020-04-20] MEDS ORDERED: SCOPOLAMINE 1MG TRANSDERMAL PATCH As Ordered ONE (12:34)
[2020-04-20] MEDS ORDERED: LR 1,000 ML IV ONE (12:45)
[2020-04-20] MEDS ORDERED: SCOPOLAMINE 1MG TRANSDERMAL PATCH TOP ONE (12:45)
[2020-04-20] MEDS ORDERED: ROPIvacaine 0.5% 30ML INJECTION (J2795 PER 1MG) As Ordered ONE (13:08)
[2020-04-20] MEDS ORDERED: ONDANSETRON 4MG/2ML VIAL As Ordered ONE (13:40)
[2020-04-20] MEDS ORDERED: METOCLOPRAMIDE INJ 10MG/2ML VIAL (J2765 PER 1) As Ordered ONE (13:40)
[2020-04-20] MEDS ORDERED: KETOROLAC 60MG 2ML VIAL As Ordered ONE (13:40)
[2020-04-20] MEDS ORDERED: dexameTHASONE 4 MG/ML 1ML VIAL (J1100 PER 1MG) As Ordered ONE (13:40)
[2020-04-20] MEDS ORDERED: ACETAMINOPHEN 1000MG 100ML IV BTL (OFIRMEV) (J0131 PER 10MG) As Ordered ONE (13:42)
[2020-04-20] MEDS ORDERED: LIDOCAINE 2% 100MG/5ML SDV (FOR ANES.) As Ordered ONE (14:07)
[2020-04-20] MEDS ORDERED: oxyCODONE 5MG TAB PO PRN (14:45)
[2020-04-20] MEDS ORDERED: fentaNYL 100 MCG/2 ML INJECTION (J3010) IV PRN (14:45)
[2020-04-20] MEDS ORDERED: ONDANSETRON 4MG/2ML VIAL IV PRN (14:45)
[2020-04-20] MEDS ORDERED: METOCLOPRAMIDE INJ 10MG/2ML VIAL (J2765 PER 1) IV PRN (14:45)
[2020-04-20] MEDS ORDERED: ACETAMINOPH W/CODEINE #3 TAB UD PO PRN (14:45)
[2020-04-20] MEDS ORDERED: MORPHINE 2 MG/ML 1ML VIAL (J2270) IV PRN (14:45)
[2020-04-20] MEDS ORDERED: LR 1,000 ML IV SCH (14:45)
[2020-04-20] MEDS ORDERED: MEPERIDINE INJ 25 MG/ML VIAL (J2175) IV PRN (14:45)
[2020-04-20 15:50] VITALS: BP 164/90
--- NOTE | 2020-04-21 07:54 | ROES ---
DATE OF OPERATION: 04/20/2020 PREOPERATIVE DIAGNOSES: Right knee osteoarthritis and medial meniscus tear. POSTOPERATIVE DIAGNOSES: Right knee osteoarthritis and medial meniscus tear with plica. PROCEDURE: Right knee operative arthroscopy, partial medial meniscectomy, excision, medial parapatellar plica. SURGEON: Dr. Nahum Jaeger ANESTHESIA: General. ESTIMATED BLOOD LOSS: Minimal. COMPLICATIONS: None. INDICATIONS: A 49-year-old gentleman with morbid obesity who has had significant right knee pain. MRI scan was consistent with a meniscus tear, but he also had some underlying osteoarthritis. He wished to go ahead with arthroscopy and understood the nature of this, the risks of bleeding, infection, damage to nerves and vessels, persistent pain, blood clots, medical problems, , among others. Patient has a body mass index (BMI) of approximately 50. PROCEDURE DESCRIPTION: Patient was taken to the operating room and placed in the supine position after general anesthesia was introduced. The right lower extremity was prepped and draped in the usual sterile fashion. A time-out was performed, and a tourniquet was not used due to the size of his leg, as I was concerned that this would provide just a venous tourniquet. Once we prepped and draped, a time-out was performed. I then created inferomedial and inferolateral portals per routine on the right knee. I identified the patellofemoral joint. There was some bleeding in the knee, which made visualization difficult, but there was a thickened medial parapatellar plica that was draped over the medial femoral condyle that was excised with a combination of basket punch and a 4.2 shaver. I proceed down both gutters, identified the medial compartment. The medial meniscus had a complex posterior horn medial meniscus tear that was a radial and flap tear. This was resected with a combination of basket punch and 4.2 shaver back to a stable rim. I re-probed the meniscus. It was stable. I identified the notch and excised the infrapatellar plica and identified the anterior cruciate ligament (ACL), which appeared to be intact. The lateral compartment was identified, and the lateral meniscus had no clear evidence of a tear. There was some lateral compartment osteoarthritis to a mild degree and moderate on the medial compartment. I then proceeded back to the patellofemoral joint, made sure the plica excision was adequate. It did appear that he had grade 2-3 changes in the patellofemoral joint. I then irrigated the knee copiously, removed the instrumentation, and closed the portals using 4-0 nylon suture. Injected 30 mL of Naropin. Sterile dressing was applied. He was taken to the recovery room in stable condition. There were no known complications. The plan will be routine postoperative. DINORAH
== END 2020-04-20 15:50 | disposition home or self-care (01) ==
LOC: M SDC 11:26
PROVIDERS: ATTEND Orthopaedic Surgery
DX: M67.51 Plica syndrome, right knee (principal); M17.11 Unilateral primary osteoarthritis, right knee; S83.231A Complex tear of medial meniscus, current injury, right knee, initial encounter; X58.XXXA Exposure to other specified factors, initial encounter; Y92.89 Other specified places as the place of occurrence of the external cause; Y93.9 Activity, unspecified; Y99.9 Unspecified external cause status; I10 Essential (primary) hypertension; E78.49 Other hyperlipidemia; F32.9 Major depressive disorder, single episode, unspecified; G43.909 Migraine, unspecified, not intractable, without status migrainosus; J45.909 Unspecified asthma, uncomplicated; Z79.899 Other long term (current) drug therapy
CPT/HCPCS: 29881; J0131; J0690; J1100; J1885; J2250; J2405; J2765; J2795; J3010

== ENCOUNTER → 2020-05-05 | Outpatient (CLI) | payer MEDICARE, MEDICAID ==
[~2020-05-05] MED LIST changes: -ceFAZolin SOD 1 GM in D5W MINI-BAG PLUS 50 ML IV ONE; -ceFAZolin SOD 2 GM in IV 1 EA IV ONE
== END ==
LOC: M LABSMTC 12:39
PROVIDERS: ATTEND Physician Assistant Medical
DX: Z20.828 Contact with and (suspected) exposure to other viral communicable diseases (principal)
CPT/HCPCS: G0463; U0003

== ENCOUNTER 2020-05-10 09:03 | Outpatient (CLI) | payer MEDICARE, MEDICAID ==
[2020-05-10] MEDS ORDERED: MIDAZOLAM INJ 2MG/2ML VIAL (J2250 PER 1MG) As Ordered ONE (10:07)
[2020-05-10 10:20] LABS: CALCIUM LEVEL 9.3 MG/DL (8.5-10.1); CREATININE FOR GFR 1.42 MG/DL (0.70-1.30); POTASSIUM SERUM 3.5 MEQ/L (3.5-5.1)
[2020-05-10] MEDS ORDERED: PROHANCE 279.3MG/ML 15ML VIAL As Ordered ONE (10:38)
[2020-05-10] MEDS ORDERED: PROHANCE 279.3MG/ML 5ML VIAL As Ordered ONE (10:38)
[2020-05-10 11:37] VITALS: BP 126/75
--- NOTE | 2020-05-10 11:50 | REPVR ---
PROCEDURE INFORMATION: Exam: MR Cervical Spine Without and With Contrast Exam date and time: 05/10/2020 11:27 AM Age: 49 years old Clinical indication: Pain; Cervicalgia; Additional info: Cervicalgia w/ anesthesia TECHNIQUE: Imaging protocol: Multiplanar magnetic resonance images of the cervical spine without and with intravenous contrast. Contrast material: PROHANCE; Contrast volume: 20 ml; Contrast route: INTRAVENOUS (IV); COMPARISON: MRI-Spine,Cervical without con 03/15/2020 8:53 AM FINDINGS: Vertebrae: There is no fracture or listhesis. Normal vertebral body alignment and heights are preserved. Spinal cord: Normal signal. No cord compression. C2-C3: There is a shallow disc osteophyte complex. There is mild facet hypertrophy. There is mild right and moderate left neural foraminal narrowing. C3-C4: There is a shallow disc osteophyte complex. There is mild facet hypertrophy. There is moderate to severe bilateral neural foraminal narrowing. C4-C5: N there is a shallow disc osteophyte complex. There is mild facet hypertrophy. There is mild left neural foraminal narrowing. C5-C6: There is a diffuse disc osteophyte complex. There is mild facet hypertrophy. There is severe right neural foraminal narrowing. C6-C7: There is a diffuse disc bulge. There is mild facet hypertrophy. There is severe bilateral neural foraminal narrowing. There is mild canal stenosis. C7-T1: No significant disc disease. No significant spinal stenosis. Vertebral arteries: Expected flow voids in the vertebral arteries. Soft tissues: Unremarkable. IMPRESSION: Degenerative disc disease and spondylosis. Changes are most pronounced at C6/7, changes contribute to severe bilateral neural foraminal narrowing and mild canal stenosis. Electronically signed by: Rosa Fong On 05/10/2020 11:50:34 AM
== END 2020-05-10 12:20 | disposition home or self-care (01) ==
LOC: M RAD 09:03
PROVIDERS: ATTEND Physician Assistant Medical
DX: M54.2 Cervicalgia (principal)
CPT/HCPCS: 72156; 80048; A9576; J2250

== ENCOUNTER → 2020-06-21 | Outpatient (CLI) | payer MEDICARE, MEDICAID ==
[2020-06-21 10:57] LABS: BASO # 0.1 10^3/uL (0.0-0.2); BASO % 0.7 % (0.0-1.0); EOS # 0.2 10^3/uL (0.0-0.5); EOS % 2.8 % (0.0-3.0); HEMATOCRIT 46.7 % (42.0-52.0); HEMOGLOBIN 14.5 g/dl (13.5-17.5); LYMPH # 2.3 10^3/uL (1.5-5.0); LYMPH % 32.5 % (24.0-44.0); MEAN CORPUSCULAR HEMOGLOBIN 27.7 pg (27.0-33.0); MEAN CORPUSCULAR VOLUME 89.3 fl (80.0-96.0); MONO # 0.7 10^3/uL (0.0-0.8); MONO % 10.2 % (0.0-5.0); NEUTROPHILS # 3.8 10^3/uL (1.5-8.5); NEUTROPHILS % 53.4 % (36.0-66.0); PLATELET COUNT, AUTOMATED 188 10^3/uL (150-450); RED BLOOD COUNT 5.23 10^6/uL (4.30-6.10); WHITE BLOOD COUNT 7.2 10^3/uL (4.0-10.0)
[2020-06-21 11:28] LABS: HEMOGLOBIN A1c 5.9 %
[2020-06-21 11:29] LABS: ALBUMIN 3.5 GM/DL (3.2-5.2); BILIRUBIN,TOTAL 0.5 MG/DL (0.2-1.0); CHOLESTEROL RISK RATIO 4.714 (<5); CREATININE FOR GFR 1.58 MG/DL (0.70-1.30); GLOMERULAR FILTRATION RATE 49.5 (>56); TOTAL PROTEIN 6.6 GM/DL (6.4-8.2)
[2020-06-21 11:35] LABS: TOTAL 25(OH) VITAMIN D 20.2 NG/ML (30.0-100.0)
[2020-06-21 11:36] LABS: PTH INTACT 60.4 PG/ML (18.5-88.0)
== END ==
LOC: M LAB 10:13
PROVIDERS: ATTEND Family Medicine
DX: N18.31 Chronic kidney disease, stage 3a (principal); N40.1 Benign prostatic hyperplasia with lower urinary tract symptoms; R73.01 Impaired fasting glucose; Z79.899 Other long term (current) drug therapy; Z12.5 Encounter for screening for malignant neoplasm of prostate
CPT/HCPCS: 36415; 80053; 80061; 82306; 83036; 83970; 85025; G0103

== ENCOUNTER 2020-07-13 14:30 | Outpatient (RCR) | payer MEDICARE, MEDICAID | END 2020-07-17 | LOC: M PT 14:30 | PROVIDERS: ATTEND Physician Assistant Medical | DX: M54.2 Cervicalgia (principal); M25.511 Pain in right shoulder ==

== ENCOUNTER 2020-07-21 14:55 | Outpatient (RCR) | payer MEDICARE, MEDICAID | END 2020-08-14 | LOC: M PT 14:55 | PROVIDERS: ATTEND Physician Assistant Medical | DX: M47.812 Spondylosis without myelopathy or radiculopathy, cervical region (principal) ==

== ENCOUNTER → 2020-09-29 | Outpatient (CLI) | payer MEDICARE, MEDICAID ==
--- NOTE | 2020-09-29 16:08 | REP ---
INDICATION: COMPLEX TEAR OF medial meniscus. Partial medial meniscectomy April 2020. COMPARISON: 03/24/2020. TECHNIQUE: Multiple sequences obtained in the axial, coronal and sagittal planes. FINDINGS: Menisci: There is a new complex tear of the remnant of the posterior horn of the medial meniscus, status post partial meniscectomy. Cruciate ligaments: Intact. Collateral ligaments: Intact. Extensor mechanism/patellar retinacula: Intact. Cartilage: There is moderate chondromalacia of the medial patellar facet. There is moderate diffuse chondromalacia of the medial femoral condyle and tibial plateau. There is moderately severe chondromalacia anteriorly of the lateral femoral condyle. Bone marrow: There is mild subchondral marrow edema in the anterolateral femoral condyle. Joint fluid: There is a small joint effusion. Popliteal region: No cyst. IMPRESSION: Status post partial medial meniscectomy. There is a new complex tear of the remnant of the posterior horn of the medial meniscus. Cruciate and collateral ligaments are intact. Diffuse chondromalacia as discussed above. Small joint effusion. <Electronically signed by Ovidio Haley > 09/29/20 [id number]
== END ==
LOC: M RAD 13:01
PROVIDERS: ATTEND Physician Assistant
DX: S83.231D Complex tear of medial meniscus, current injury, right knee, subsequent encounter (principal); X58.XXXD Exposure to other specified factors, subsequent encounter

== ENCOUNTER 2020-10-21 18:09 | Emergency (ER) | payer MEDICARE, MEDICAID ==
[~2020-10-21] VITALS: Ht 190.5 cm; Wt 186.8 kg
[2020-10-21] MEDS ORDERED: DULO1CAP6 (18:32)
[2020-10-21] MEDS ORDERED: DIVA500T94 (18:32)
[2020-10-21] MEDS ORDERED: AIMO70IN (18:32)
[2020-10-21] MEDS ORDERED: SUCR1TAB56 (18:32)
--- NOTE | 2020-10-21 19:52 | REPVR ---
PROCEDURE INFORMATION: Exam: CT Abdomen And Pelvis Without Contrast Exam date and time: 10/21/2020 7:02 PM Age: 49 years old Clinical indication: Abdominal pain; Generalized; Additional info: Abd pain/hematuria TECHNIQUE: Imaging protocol: Computed tomography of the abdomen and pelvis without contrast. Radiation optimization: All CT scans at this facility use at least one of these dose optimization techniques: automated exposure control; mA and/or kV adjustment per patient size (includes targeted exams where dose is matched to clinical indication); or iterative reconstruction. COMPARISON: 1. CT ABD W/IV PO CONTRAST 01/15/2020 6:[address] ABD W/IV PO CONTRAST 01/15/2020 6:07:19 PM FINDINGS: Lungs: 6 mm soft tissue density subpleural pulmonary nodule in the right lower lobe laterally on series 201, image 4, unchanged from 01/15/2020. This region was not included on 10/04/2018. 2 mm soft tissue density subpleural pulmonary nodule in the right middle lobe anterior laterally on series 201, image 4 is unchanged. Multiple noncalcified soft tissue density mixed subpleural and parenchymal pulmonary nodules in the left lower lobe on series 201, images 8 through 18, measuring 2-6 mm are unchanged from 01/15/2020. Liver: Diffuse fatty liver change. Focal fatty sparing at the gallbladder fossa. Small calcified granuloma in the liver. Gallbladder and bile ducts: Multiple small gallstones layering dependently in the gallbladder. No biliary ductal dilatation. Pancreas: Normal. No ductal dilation. Spleen: Normal. No splenomegaly. Adrenal glands: Normal. No mass. Kidneys and ureters: Kidneys are unremarkable. No hydronephrosis. No ureteral calculi are seen. Stomach and bowel: There is no bowel dilatation to indicate obstruction. No pneumatosis. Appendix: Appendix is not visualized. No pericecal inflammatory process is seen. Intraperitoneal space: Unremarkable. No free air. No significant fluid collection. Vasculature: Unremarkable. No abdominal aortic aneurysm. Lymph nodes: Small periaortic lymph nodes. No enlarged lymph nodes. Urinary bladder: Bladder is grossly unremarkable. Reproductive: Unremarkable as visualized. Bones/joints: Degenerative disc and facet disease in the lumbar spine. Soft tissues: Small noninflamed fat containing left inguinal hernia. Minimal fat stranding in the proximal portion of a fat containing right inguinal hernia. Rectus diastasis abdominal wall hernia with overlying prior incision. This has a broad mouth and contains fat and small bowel with no inflammatory change. Stable presumed nodular scarring in a secondary or residual fat containing hernia sac extending off to the right of midline, unchanged since 01/15/2020. Small area of presumed fat necrosis seen in the left anterior abdominal wall is stable from 01/15/2020. Noninflamed fat containing supraumbilical hernia is larger in size than on 01/15/2020. Ventral abdominal wall hernia repair has been performed since 10/04/2018. IMPRESSION: 1. No urinary tract calculi or hydronephrosis. 2. Postoperative changes from ventral abdominal wall hernia repair, with residual rectus diastasis hernia which is noninflamed, and postoperative scarring which is stable from 01/15/2020 along the right aspect. 3. Noninflamed fat containing supraumbilical hernia which has increased in size. 4. Cholelithiasis. 5. Diffuse fatty liver change. 6. Small noninflamed fat containing left inguinal hernia, and small right fat containing inguinal hernia which may have minimal nonspecific inflammation or scarring proximally. 7. Bibasilar pulmonary nodules which are stable compared to 01/15/2020 (region not included on 10/04/2018). These measure up to 6 mm. For patients at low risk (minimal or absent history of smoking and of other known risk factors), recommend CT Chest consider CT Chest at 18-24 months given that 1 follow-up study is already been obtained. For patients at high risk (history of smoking or of other known risk factors), recommend CT Chest at 18-24 months given that 1 follow-up study has already been obtained. (Reference: Ronnell) References: Lizhonara H, et al. Guidelines for Management of Incidental Pulmonary Nodules Detected on CT Images: From the Fleischner Society 2017. Radiology. 2017;284(1):228-243. Electronically signed by: Mary Grace Britt On 10/21/2020 19:52:40 PM
[2020-10-21 20:00] LABS: HEMATOCRIT 44.3 % (42.0-52.0); HEMOGLOBIN 14.3 g/dl (13.5-17.5); MEAN CORPUSCULAR HEMOGLOBIN 28.4 pg (27.0-33.0); MEAN CORPUSCULAR HGB CONC 32.3 g/dl (32.0-36.5); MEAN CORPUSCULAR VOLUME 87.9 fl (80.0-96.0); PLATELET COUNT, AUTOMATED 201 10^3/uL (150-450); RED BLOOD COUNT 5.04 10^6/uL (4.30-6.10); WHITE BLOOD COUNT 8.1 10^3/uL (4.0-10.0)
[2020-10-21] MEDS ORDERED: cefTRIAXone 500MG VIAL (J0696 PER 250MG) IM ONE (21:20)
[2020-10-21] MEDS ORDERED: DOXYCYCLINE HYCLATE 100MG TABLET PO ONE (21:20)
[2020-10-21] MEDS ORDERED: LIDOCAINE 1% SDV 5ML VIAL DILUENT ONE (21:20)
[2020-10-21] MEDS ORDERED: DOXY100C37 PO (21:22)
[2020-10-21 21:37] VITALS: BP 144/70
--- NOTE | 2020-10-23 08:34 | ED PDOC ---
Post-Departure Follow-Up radiology report faxed to vera Granado Sarah MD October 23, 2020 08:33
== END 2020-10-21 22:12 | disposition home or self-care (01) ==
LOC: M ED 18:09
DX: R31.9 Hematuria, unspecified (principal); I10 Essential (primary) hypertension; E78.5 Hyperlipidemia, unspecified; K76.0 Fatty (change of) liver, not elsewhere classified; K40.20 Bilateral inguinal hernia, without obstruction or gangrene, not specified as recurrent; K80.20 Calculus of gallbladder without cholecystitis without obstruction; R91.8 Other nonspecific abnormal finding of lung field; Z79.899 Other long term (current) drug therapy
CPT/HCPCS: 36415; 74176; 80047; 81001; 85027; 87088; 87490; 87590; 87661; 96372; 99283; J0696

== ENCOUNTER → 2020-12-29 | Outpatient (CLI) | payer MEDICARE, MEDICAID ==
[~2020-12-29] MED LIST changes: +AIMO70IN; +DIVA500T94; +DOXY-443 PO; +DULO1CAP6; +OMEP40CA4 PO; -OMEP40CA97 PO; +SUCR1TAB56
[2020-12-29 13:45] LABS: BASO # 0.1 10^3/uL (0.0-0.2); BASO % 0.9 % (0.0-1.0); EOS # 0.4 10^3/uL (0.0-0.5); EOS % 5.5 % (0.0-3.0); HEMATOCRIT 45.5 % (42.0-52.0); HEMOGLOBIN 14.5 g/dl (13.5-17.5); LYMPH # 2.2 10^3/uL (1.5-5.0); LYMPH % 31.2 % (24.0-44.0); MEAN CORPUSCULAR HEMOGLOBIN 28.5 pg (27.0-33.0); MEAN CORPUSCULAR HGB CONC 31.9 g/dl (32.0-36.5); MEAN CORPUSCULAR VOLUME 89.6 fl (80.0-96.0); MONO # 0.6 10^3/uL (0.0-0.8); MONO % 8.2 % (2.0-8.0); NEUTROPHILS # 3.8 10^3/uL (1.5-8.5); NEUTROPHILS % 53.9 % (36.0-66.0); PLATELET COUNT, AUTOMATED 184 10^3/uL (150-450); RED BLOOD COUNT 5.08 10^6/uL (4.30-6.10)
[2020-12-29 13:55] LABS: INR 0.92; PARTIAL THROMBOPLASTIN TIME 29.5 SECONDS (24.2-38.5); PROTHROMBIN TIME 12.6 SECONDS (12.5-14.3)
[2020-12-29 14:03] LABS: HEMOGLOBIN A1c 6.4 %
[2020-12-29 14:22] LABS: ALBUMIN 3.3 GM/DL (3.2-5.2); ALT/SGPT 52 U/L (12-78); BILIRUBIN,TOTAL 0.5 MG/DL (0.2-1.0); BLOOD UREA NITROGEN 18 MG/DL (7-18); CARBON DIOXIDE LEVEL 29 MEQ/L (21-32); CHLORIDE LEVEL 106 MEQ/L (98-107); CHOLESTEROL LEVEL 169 MG/DL (<200); CHOLESTEROL RISK RATIO 4.023 (<5); CREATININE FOR GFR 1.24 MG/DL (0.70-1.30); FREE T4 0.72 NG/DL (0.76-1.46); GLOMERULAR FILTRATION RATE > 60.0 (>56); GLUCOSE, FASTING 95 MG/DL (70-100); HDL CHOLESTEROL 42 MG/DL (>40); LDL CHOLESTEROL 87 MG/DL (<100); NON-HDL-C 127 MG/DL; NT-PRO BNP 16 PG/ML (<125); SODIUM LEVEL 140 MEQ/L (136-145); TOTAL PROTEIN 6.7 GM/DL (6.4-8.2); TRIGLYCERIDES LEVEL 199 MG/DL (<150)
== END ==
LOC: M PLALAB 11:27
PROVIDERS: ATTEND Family Medicine
DX: R73.01 Impaired fasting glucose (principal); I10 Essential (primary) hypertension
CPT/HCPCS: 36415; 80053; 80061; 83036; 83525; 83880; 84439; 84443; 85025; 85610; 85730; G0463

== ENCOUNTER → 2021-08-18 | Outpatient (CLI) | payer MEDICARE, MEDICAID ==
[~2021-08-18] MED LIST changes: +GASTROGRAFIN SOLUTION 30ML (Q9963) ONE; +ISOVUE-370 76% 100ML VIAL ONE
== END ==
LOC: M PLAIMG 11:35
PROVIDERS: ATTEND Physician Assistant Surgical
DX: K43.9 Ventral hernia without obstruction or gangrene (principal); E66.01 Morbid (severe) obesity due to excess calories; K80.20 Calculus of gallbladder without cholecystitis without obstruction; K76.0 Fatty (change of) liver, not elsewhere classified; K40.90 Unilateral inguinal hernia, without obstruction or gangrene, not specified as recurrent
CPT/HCPCS: 74177; Q9963; Q9967

== ENCOUNTER → 2021-10-31 | Outpatient (CLI) | payer MEDICARE, MEDICAID ==
[~2021-10-31] MED LIST changes: -GASTROGRAFIN SOLUTION 30ML (Q9963) ONE; -ISOVUE-370 76% 100ML VIAL ONE
[2021-10-31 15:54] LABS: HEMOGLOBIN A1c 7.3 %
[2021-10-31 15:56] LABS: ALBUMIN 3.6 GM/DL (3.2-5.2); BILIRUBIN,TOTAL 0.7 MG/DL (0.2-1.0); CALCIUM LEVEL 9.1 MG/DL (8.5-10.1); CREATININE FOR GFR 1.34 MG/DL (0.70-1.30); GLOMERULAR FILTRATION RATE 59.6 (>56); TOTAL PROTEIN 6.8 GM/DL (6.4-8.2)
== END ==
LOC: M PLALAB 11:54
PROVIDERS: ATTEND Physician Assistant Medical
DX: R73.01 Impaired fasting glucose (principal)

== ENCOUNTER → 2021-11-10 | Outpatient (CLI) | payer MEDICARE, MEDICAID | LOC: M RAD 15:14 | PROVIDERS: ATTEND Physician Assistant Medical | DX: R79.89 Other specified abnormal findings of blood chemistry (principal) ==

== ENCOUNTER → 2022-01-24 | Outpatient (CLI) | payer MEDICARE, MEDICAID ==
[~2022-01-24] MED LIST changes: -AIMO70IN; +AIMO70IN SC; -DIVA500T94; +DIVA500T94 PO; -DULO1CAP6; +DULO1CAP6 PO; +MIRT-10 PO; +PHEN37.58 PO; -SUCR1TAB56; +SUCR1TAB56 PO; +TAMS1CAP17 PO; +TOPI100T9 PO
== END ==
LOC: M LABSMTC 11:00
PROVIDERS: ATTEND Anesthesiology
DX: Z11.52 Encounter for screening for COVID-19 (principal)

== ENCOUNTER 2022-01-29 12:24 | Day surgery (SDC) | payer MEDICARE, MEDICAID ==
[~2022-01-29] VITALS: Ht 190.5 cm; Wt 182.5 kg
[~2022-01-29 12:24] MED LIST changes: +LIDOCAINE 2% 100MG/5ML SDV (FOR ANES.) As Ordered ONE; +NS 1,000 ML IV ONE; +propofoL 500 MG/50 ML VIAL As Ordered ONE
[2022-01-29] MEDS ORDERED: fentaNYL 100 MCG/2 ML INJECTION As Ordered ONE (13:19)
[2022-01-29] MEDS ORDERED: propofoL 200 MG/20 ML VIAL As Ordered ONE (14:08)
[2022-01-29 14:55] VITALS: BP 119/59
== END 2022-01-29 14:57 | disposition home or self-care (01) ==
LOC: M OPP 12:24
PROVIDERS: ATTEND Internal Medicine Gastroenterology
DX: Z12.11 Encounter for screening for malignant neoplasm of colon (principal); Z86.010 Personal history of colon polyps; D12.3 Benign neoplasm of transverse colon; K64.4 Residual hemorrhoidal skin tags; K64.8 Other hemorrhoids; K57.30 Diverticulosis of large intestine without perforation or abscess without bleeding; K29.70 Gastritis, unspecified, without bleeding; K30 Functional dyspepsia; I10 Essential (primary) hypertension; F32.9 Major depressive disorder, single episode, unspecified; G43.909 Migraine, unspecified, not intractable, without status migrainosus; Z79.02 Long term (current) use of antithrombotics/antiplatelets; Z79.1 Long term (current) use of non-steroidal anti-inflammatories (NSAID); Z79.51 Long term (current) use of inhaled steroids; Z79.891 Long term (current) use of opiate analgesic; Z79.899 Other long term (current) drug therapy
CPT/HCPCS: 43239; 45385; 88305; J3010

== ENCOUNTER → 2022-03-06 | Outpatient (REF) | payer MEDICARE, MEDICAID ==
[~2022-03-06] MED LIST changes: -LIDOCAINE 2% 100MG/5ML SDV (FOR ANES.) As Ordered ONE; -NS 1,000 ML IV ONE; -propofoL 500 MG/50 ML VIAL As Ordered ONE
== END ==
LOC: M SFHCPLAZ 13:10
PROVIDERS: ATTEND Physician Assistant Medical
DX: N30.00 Acute cystitis without hematuria (principal)

== ENCOUNTER → 2022-03-16 | Outpatient (REF) | payer MEDICARE, MEDICAID | LOC: M SFHCPLAZ 17:11 | PROVIDERS: ATTEND Physician Assistant Medical | DX: R05.1 Acute cough (principal) ==

== ENCOUNTER → 2022-04-06 | Outpatient (CLI) | payer MEDICARE, MEDICAID ==
[2022-04-06 13:52] LABS: BASO # 0.1 10^3/uL (0.0-0.2); BASO % 0.7 % (0.0-1.0); EOS # 0.2 10^3/uL (0.0-0.5); HEMOGLOBIN 14.5 g/dl (13.5-17.5); LYMPH # 2.1 10^3/uL (1.5-5.0); MEAN CORPUSCULAR HEMOGLOBIN 28.5 pg (27.0-33.0); MEAN CORPUSCULAR HGB CONC 31.5 g/dl (32.0-36.5); MEAN CORPUSCULAR VOLUME 90.4 fl (80.0-96.0); MONO # 0.7 10^3/uL (0.0-0.8); MONO % 8.7 % (2.0-8.0); NEUTROPHILS # 4.5 10^3/uL (1.5-8.5); NEUTROPHILS % 59.1 % (36.0-66.0); PLATELET COUNT, AUTOMATED 194 10^3/uL (150-450); RED BLOOD COUNT 5.09 10^6/uL (4.30-6.10); WHITE BLOOD COUNT 7.6 10^3/uL (4.0-10.0)
[2022-04-06 14:45] LABS: ALBUMIN 3.4 GM/DL (3.2-5.2); ALT/SGPT 39 U/L (12-78); BILIRUBIN,TOTAL 0.4 MG/DL (0.2-1.0); BLOOD UREA NITROGEN 21 MG/DL (7-18); CALCIUM LEVEL 9.1 MG/DL (8.5-10.1); CARBON DIOXIDE LEVEL 29 MEQ/L (21-32); CHLORIDE LEVEL 103 MEQ/L (98-107); CREATININE FOR GFR 1.24 MG/DL (0.70-1.30); GLOMERULAR FILTRATION RATE > 60.0 (>56); GLUCOSE, FASTING 138 MG/DL (70-100); POTASSIUM SERUM 3.9 MEQ/L (3.5-5.1); SODIUM LEVEL 139 MEQ/L (136-145); TOTAL PROTEIN 6.8 GM/DL (6.4-8.2)
== END ==
LOC: M PLALAB 09:15
PROVIDERS: ATTEND Psychiatry & Neurology Neurology
DX: R51.9 Headache, unspecified (principal)

== ENCOUNTER → 2022-04-06 | Outpatient (CLI) | payer MEDICARE, MEDICAID ==
[2022-04-06 14:00] LABS: APPEARANCE, URINE MANUAL CLEAR (CLEAR); COLOR, URINE MANUAL YELLOW (YELLOW); SPECIFIC GRAVITY,URINE MANUAL 1.015 (1.002-1.035)
[2022-04-06 14:01] LABS: BILIRUBIN, URINE MANUAL NEGATIVE (NEGATIVE); BLOOD URINE MANUAL NEGATIVE (NEGATIVE); GLUCOSE, URINE (UA) MANUAL NEGATIVE (NEGATIVE); KETONE, URINE MANUAL NEGATIVE (NEGATIVE); LEUKOCYTE ESTERASE, URINE MAN POSITIVE (NEGATIVE); NITRITE, URINE MANUAL NEGATIVE (NEGATIVE); PROTEIN, URINE MANUAL TRACE mg/dL (NEGATIVE); UROBILINOGEN, URINE MANUAL NORMAL (NORMAL)
[2022-04-06 14:13] LABS: BACTERIA, URINE SMALL AMOUNT; RBC, URINE NONE SEEN /hpf (0-3); SQUAMOUS EPITHELIAL CELL URINE SMALL AMOUNT /hpf (SMALL AMT)
[2022-04-06 14:14] LABS: HYALINE CAST, URINE NONE SEEN /lpf (0-1); MUCUS, URINE SMALL AMOUNT (NEGATIVE)
[2022-04-06 14:41] LABS: ALBUMIN 3.5 GM/DL (3.2-5.2); ALT/SGPT 39 U/L (12-78); BILIRUBIN,TOTAL 0.4 MG/DL (0.2-1.0); BLOOD UREA NITROGEN 21 MG/DL (7-18); CALCIUM LEVEL 9.1 MG/DL (8.5-10.1); CARBON DIOXIDE LEVEL 27 MEQ/L (21-32); CHLORIDE LEVEL 103 MEQ/L (98-107); CREATININE FOR GFR 1.24 MG/DL (0.70-1.30); GLOMERULAR FILTRATION RATE > 60.0 (>56); GLUCOSE, FASTING 138 MG/DL (70-100); POTASSIUM SERUM 3.9 MEQ/L (3.5-5.1); SODIUM LEVEL 138 MEQ/L (136-145); TOTAL PROTEIN 6.9 GM/DL (6.4-8.2)
== END ==
LOC: M PLALAB 09:17
PROVIDERS: ATTEND Physician Assistant
DX: N39.0 Urinary tract infection, site not specified (principal)
CPT/HCPCS: 36415; 80053; 81000; 85025; 87088; 87186; G0103

== ENCOUNTER → 2022-04-19 | Outpatient (REF) | payer MEDICARE, MEDICAID ==
[2022-04-19 14:55] LABS: APPEARANCE, URINE MANUAL HAZY (CLEAR); COLOR, URINE MANUAL YELLOW (YELLOW)
[2022-04-19 14:57] LABS: BILIRUBIN, URINE MANUAL NEGATIVE (NEGATIVE); GLUCOSE, URINE (UA) MANUAL 4+(1000 MG/DL) mg/dL (NEGATIVE); KETONE, URINE MANUAL NEGATIVE (NEGATIVE); PROTEIN, URINE MANUAL NEGATIVE (NEGATIVE); UROBILINOGEN, URINE MANUAL NORMAL (NORMAL)
[2022-04-19 14:58] LABS: BLOOD URINE MANUAL NEGATIVE (NEGATIVE); LEUKOCYTE ESTERASE, URINE MAN NEGATIVE (NEGATIVE); NITRITE, URINE MANUAL NEGATIVE (NEGATIVE)
[2022-04-19 15:03] LABS: AMORPHOUS SEDIMENT, URINE SMALL AMOUNT (NEGATIVE); BACTERIA, URINE MOD AMOUNT; HYALINE CAST, URINE NONE SEEN /lpf (0-1); RBC, URINE 0-1 /hpf (0-3); SQUAMOUS EPITHELIAL CELL URINE SMALL AMOUNT /hpf (SMALL AMT); WBC, URINE 0-1 /hpf (0-3)
== END ==
LOC: M SMT 13:18
PROVIDERS: ATTEND Physician Assistant
DX: N39.0 Urinary tract infection, site not specified (principal)

== ENCOUNTER → 2022-04-26 | Outpatient (CLI) | payer MEDICARE, MEDICAID | LOC: M RAD 14:31 | PROVIDERS: ATTEND Physician Assistant | DX: N39.0 Urinary tract infection, site not specified (principal) ==

== ENCOUNTER → 2022-05-03 | Outpatient (CLI) | payer MEDICARE, MEDICAID | LOC: M RAD 16:35 | PROVIDERS: ATTEND Physician Assistant Surgical | DX: S53.032A Nursemaid's elbow, left elbow, initial encounter (principal); S46.312A Strain of muscle, fascia and tendon of triceps, left arm, initial encounter; S52.023A Displaced fracture of olecranon process without intraarticular extension of unspecified ulna, initial encounter for closed fracture; S56.512A Strain of other extensor muscle, fascia and tendon at forearm level, left arm, initial encounter; M94.222 Chondromalacia, left elbow ==

== ENCOUNTER → 2022-05-15 | Outpatient (CLI) | payer MEDICARE, MEDICAID ==
[~2022-05-15] MED LIST changes: +ISOVUE-370 76% 100ML VIAL As Ordered ONE
== END ==
LOC: M RAD 09:15
PROVIDERS: ATTEND Physician Assistant
DX: N39.0 Urinary tract infection, site not specified (principal)
CPT/HCPCS: 74178; Q9967

== ENCOUNTER → 2022-05-24 | Outpatient (CLI) | payer MEDICARE, MEDICAID ==
[~2022-05-24] MED LIST changes: -ISOVUE-370 76% 100ML VIAL As Ordered ONE
[2022-05-24 15:36] LABS: BASO # 0.1 10^3/uL (0.0-0.2); BASO % 0.6 % (0.0-1.0); EOS # 0.5 10^3/uL (0.0-0.5); EOS % 5.9 % (0.0-3.0); HEMATOCRIT 46.4 % (42.0-52.0); HEMOGLOBIN 14.3 g/dl (13.5-17.5); LYMPH # 2.2 10^3/uL (1.5-5.0); LYMPH % 27.4 % (24.0-44.0); MEAN CORPUSCULAR HEMOGLOBIN 28.1 pg (27.0-33.0); MEAN CORPUSCULAR HGB CONC 30.8 g/dl (32.0-36.5); MEAN CORPUSCULAR VOLUME 91.2 fl (80.0-96.0); MONO # 0.6 10^3/uL (0.0-0.8); NEUTROPHILS # 4.6 10^3/uL (1.5-8.5); NEUTROPHILS % 57.6 % (36.0-66.0); PLATELET COUNT, AUTOMATED 217 10^3/uL (150-450); RED BLOOD COUNT 5.09 10^6/uL (4.30-6.10)
[2022-05-24 15:43] LABS: ALBUMIN 3.4 G/DL (3.2-5.2); ALKALINE PHOSPHATASE 77 U/L (46-116); ALT/SGPT 32 U/L (7.0-40); AST/SGOT 35 U/L (<34); BILIRUBIN,TOTAL 0.4 MG/DL (0.3-1.2); BLOOD UREA NITROGEN 27 MG/DL (9-23); CALCIUM LEVEL 9.8 MG/DL (8.5-10.1); CARBON DIOXIDE LEVEL 30 MMOL/L (20-31); CHLORIDE LEVEL 104 MMOL/L (98-107); CHOLESTEROL LEVEL 167 MG/DL (<200); CHOLESTEROL RISK RATIO 4.88 (<5); CREATININE FOR GFR 1.29 MG/DL (0.70-1.30); GLOMERULAR FILTRATION RATE > 60.0 (>56); GLUCOSE, FASTING 133 MG/DL (60-100); HDL CHOLESTEROL 34.2 MG/DL (>40); LDL CHOLESTEROL 71.8 MG/DL (<100); NON-HDL-C 133 MG/DL; POTASSIUM SERUM 4.4 MMOL/L (3.5-5.1); SODIUM LEVEL 140 MMOL/L (136-145); TOTAL PROTEIN 6.5 G/DL (5.7-8.2); TRIGLYCERIDES LEVEL 305 MG/DL (<150)
[2022-05-24 17:35] LABS: HEMOGLOBIN A1c 7.2 % (4.0-6.0)
== END ==
LOC: M PLALAB 12:09
PROVIDERS: ATTEND Physician Assistant Medical
DX: N41.0 Acute prostatitis (principal); I10 Essential (primary) hypertension; E66.01 Morbid (severe) obesity due to excess calories; Z13.220 Encounter for screening for lipoid disorders; Z79.899 Other long term (current) drug therapy

== ENCOUNTER → 2022-06-21 | Outpatient (REF) | payer MEDICARE, MEDICAID ==
[2022-06-21 14:55] LABS: APPEARANCE, URINE MANUAL HAZY (CLEAR); COLOR, URINE MANUAL LT YELLOW (YELLOW)
[2022-06-21 14:56] LABS: BILIRUBIN, URINE MANUAL NEGATIVE (NEGATIVE); BLOOD URINE MANUAL NEGATIVE (NEGATIVE); GLUCOSE, URINE (UA) MANUAL NEGATIVE (NEGATIVE); KETONE, URINE MANUAL NEGATIVE (NEGATIVE); LEUKOCYTE ESTERASE, URINE MAN POSITIVE (NEGATIVE); NITRITE, URINE MANUAL NEGATIVE (NEGATIVE); PROTEIN, URINE MANUAL TRACE mg/dL (NEGATIVE); UROBILINOGEN, URINE MANUAL NORMAL (NORMAL)
[2022-06-21 15:15] LABS: WBC, URINE TNTC /hpf (0-3)
[2022-06-21 15:16] LABS: BACTERIA, URINE SMALL AMOUNT; HYALINE CAST, URINE NONE SEEN /lpf (0-1); RBC, URINE 0-1 /hpf (0-3); SQUAMOUS EPITHELIAL CELL URINE SMALL AMOUNT /hpf (SMALL AMT)
== END ==
LOC: M SMT 12:41
PROVIDERS: ATTEND Physician Assistant
DX: N39.0 Urinary tract infection, site not specified (principal)

== ENCOUNTER → 2022-06-28 | Outpatient (CLI) | payer MEDICARE, MEDICAID | LOC: M SLEEP 20:00 | PROVIDERS: ATTEND Internal Medicine Pulmonary Disease | DX: G47.30 Sleep apnea, unspecified (principal) ==

== ENCOUNTER → 2022-08-31 | Outpatient (CLI) | payer MEDICARE, MEDICAID ==
[2022-08-31 17:18] LABS: BASO # 0.1 10^3/uL (0.0-0.2); BASO % 0.8 % (0.0-1.0); EOS # 0.2 10^3/uL (0.0-0.5); EOS % 3.2 % (0.0-3.0); HEMATOCRIT 45.4 % (42.0-52.0); HEMOGLOBIN 14.6 g/dl (13.5-17.5); LYMPH % 27.3 % (24.0-44.0); MEAN CORPUSCULAR HEMOGLOBIN 28.7 pg (27.0-33.0); MEAN CORPUSCULAR HGB CONC 32.2 g/dl (32.0-36.5); MEAN CORPUSCULAR VOLUME 89.4 fl (80.0-96.0); MONO # 0.6 10^3/uL (0.0-0.8); MONO % 8.4 % (2.0-8.0); NEUTROPHILS # 4.5 10^3/uL (1.5-8.5); NEUTROPHILS % 59.9 % (36.0-66.0); PLATELET COUNT, AUTOMATED 212 10^3/uL (150-450); RED BLOOD COUNT 5.08 10^6/uL (4.30-6.10); WHITE BLOOD COUNT 7.5 10^3/uL (4.0-10.0)
[2022-08-31 17:31] LABS: APPEARANCE, URINE HAZY (CLEAR); BACTERIA, URINE AUTO 1+ (NEGATIVE); BILIRUBIN, URINE AUTO NEGATIVE (NEGATIVE); BLOOD, URINE BLOOD NEGATIVE (NEGATIVE); COLOR, URINE YELLOW (YELLOW); GLUCOSE, URINE (UA) AUTO NEGATIVE (NEGATIVE); KETONE, URINE AUTO NEGATIVE (NEGATIVE); LEUKOCYTE ESTERASE, URINE AUTO NEGATIVE (NEGATIVE); MUCUS, URINE SMALL (NEGATIVE); NITRITE, URINE AUTO NEGATIVE (NEGATIVE); PROTEIN, URINE AUTO NEGATIVE (NEGATIVE); RBC, URINE AUTO 1 /HPF (0-3); SPECIFIC GRAVITY URINE AUTO 1.016 (1.002-1.035); SQUAMOUS EPITHELIAL CELL UR AU 0 /HPF (0-6); UROBILINOGEN, URINE AUTO 0.2 mg/dL (0.0-2.0); WBC, URINE AUTO 1 /HPF (0-3)
[2022-08-31 17:35] LABS: INR 0.91; PROTHROMBIN TIME 12.5 SECONDS (12.5-14.5)
[2022-08-31 17:36] LABS: PARTIAL THROMBOPLASTIN TIME 30.3 SECONDS (24.8-34.2)
[2022-08-31 17:48] LABS: HEMOGLOBIN A1c 7.1 % (4.0-6.0)
[2022-08-31 18:23] LABS: ALBUMIN 3.7 G/DL (3.2-5.2); ALKALINE PHOSPHATASE 80 U/L (46-116); ALT/SGPT 42 U/L (7.0-40); AST/SGOT 37 U/L (<34); BILIRUBIN,TOTAL 0.9 MG/DL (0.3-1.2); BLOOD UREA NITROGEN 14 MG/DL (9-23); CALCIUM LEVEL 9.5 MG/DL (8.5-10.1); CARBON DIOXIDE LEVEL 30 MMOL/L (20-31); CHLORIDE LEVEL 99 MMOL/L (98-107); CREATININE FOR GFR 1.19 MG/DL (0.70-1.30); GLOMERULAR FILTRATION RATE > 60.0 (>56); GLUCOSE, FASTING 138 MG/DL (60-100); POTASSIUM SERUM 3.5 MMOL/L (3.5-5.1); SODIUM LEVEL 138 MMOL/L (136-145); TOTAL PROTEIN 6.4 G/DL (5.7-8.2)
== END ==
LOC: M PLALAB 15:31
PROVIDERS: ATTEND Family Medicine
DX: I10 Essential (primary) hypertension (principal); Z79.899 Other long term (current) drug therapy

== ENCOUNTER → 2022-09-04 | Outpatient (CLI) | payer MEDICARE, MEDICAID | LOC: M CARPUL 08:27 | PROVIDERS: ATTEND Physician Assistant Medical | DX: I10 Essential (primary) hypertension (principal) ==

== ENCOUNTER → 2022-09-12 | Outpatient (CLI) | payer MEDICARE, MEDICAID ==
[2022-09-12 15:46] LABS: BASO # 0.1 10^3/uL (0.0-0.2); BASO % 0.7 % (0.0-1.0); EOS # 0.2 10^3/uL (0.0-0.5); EOS % 3.3 % (0.0-3.0); HEMATOCRIT 46.7 % (42.0-52.0); HEMOGLOBIN 14.5 g/dl (13.5-17.5); LYMPH # 1.9 10^3/uL (1.5-5.0); LYMPH % 28.1 % (24.0-44.0); MEAN CORPUSCULAR VOLUME 90.3 fl (80.0-96.0); MONO # 0.6 10^3/uL (0.0-0.8); MONO % 8.6 % (2.0-8.0); NEUTROPHILS # 4.1 10^3/uL (1.5-8.5); NEUTROPHILS % 58.9 % (36.0-66.0); PLATELET COUNT, AUTOMATED 211 10^3/uL (150-450); RED BLOOD COUNT 5.17 10^6/uL (4.30-6.10); WHITE BLOOD COUNT 6.9 10^3/uL (4.0-10.0)
[2022-09-12 16:20] LABS: ALBUMIN 3.7 G/DL (3.2-5.2); ALKALINE PHOSPHATASE 80 U/L (46-116); ALT/SGPT 41 U/L (7.0-40); AST/SGOT 33 U/L (<34); BILIRUBIN,TOTAL 0.7 MG/DL (0.3-1.2); BLOOD UREA NITROGEN 11 MG/DL (9-23); CARBON DIOXIDE LEVEL 29 MMOL/L (20-31); CHLORIDE LEVEL 101 MMOL/L (98-107); CHOLESTEROL LEVEL 162 MG/DL (<200); CHOLESTEROL RISK RATIO 4.11 (<5); CREATININE FOR GFR 1.13 MG/DL (0.70-1.30); GLOMERULAR FILTRATION RATE > 60.0 (>56); GLUCOSE, FASTING 109 MG/DL (60-100); HDL CHOLESTEROL 39.4 MG/DL (>40); LDL CHOLESTEROL 90.2 MG/DL (<100); NON-HDL-C 122.6 MG/DL; SODIUM LEVEL 139 MMOL/L (136-145); TOTAL PROTEIN 6.8 G/DL (5.7-8.2); TRIGLYCERIDES LEVEL 162 MG/DL (<150)
[2022-09-12 16:49] LABS: HEMOGLOBIN A1c 7.2 % (4.0-6.0)
== END ==
LOC: M PLALAB 13:15
PROVIDERS: ATTEND Physician Assistant Medical
DX: N41.0 Acute prostatitis (principal); I10 Essential (primary) hypertension; E66.01 Morbid (severe) obesity due to excess calories; Z13.220 Encounter for screening for lipoid disorders

== ENCOUNTER → 2022-10-03 | Outpatient (CLI) | payer MEDICARE, MEDICAID | LOC: M SLEEP 20:00 | PROVIDERS: ATTEND Internal Medicine Pulmonary Disease | DX: G47.33 Obstructive sleep apnea (adult) (pediatric) (principal) ==

== ENCOUNTER 2022-11-13 18:08 | Emergency (ER) | payer MEDICARE, MEDICAID ==
[~2022-11-13] VITALS: Ht 190.5 cm; Wt 180.0 kg
[2022-11-13 20:21] LABS: BASO # 0.1 10^3/uL (0.0-0.2); BASO % 0.6 % (0.0-1.0); EOS # 0.2 10^3/uL (0.0-0.5); EOS % 2.2 % (0.0-3.0); HEMATOCRIT 45.6 % (42.0-52.0); HEMOGLOBIN 14.7 g/dl (13.5-17.5); LYMPH # 2.4 10^3/uL (1.5-5.0); LYMPH % 26.6 % (24.0-44.0); MEAN CORPUSCULAR HGB CONC 32.2 g/dl (32.0-36.5); MEAN CORPUSCULAR VOLUME 86.9 fl (80.0-96.0); MONO # 0.7 10^3/uL (0.0-0.8); MONO % 8.3 % (2.0-8.0); NEUTROPHILS # 5.5 10^3/uL (1.5-8.5); PLATELET COUNT, AUTOMATED 184 10^3/uL (150-450); RED BLOOD COUNT 5.25 10^6/uL (4.30-6.10); WHITE BLOOD COUNT 8.9 10^3/uL (4.0-10.0)
[2022-11-13 20:51] LABS: BLOOD UREA NITROGEN 19 MG/DL (9-23); CALCIUM LEVEL 8.7 MG/DL (8.5-10.1); CARBON DIOXIDE LEVEL 26 MMOL/L (20-31); CHLORIDE LEVEL 102 MMOL/L (98-107); GLOMERULAR FILTRATION RATE > 60.0 (>56); GLUCOSE, FASTING 114 MG/DL (60-100); POTASSIUM SERUM 4.1 MMOL/L (3.5-5.1); SODIUM LEVEL 138 MMOL/L (136-145)
[2022-11-13] MEDS ORDERED: KETOROLAC 30 MG/ML 1ML VIAL IV ONE (23:20)
[2022-11-13] MEDS ORDERED: ONDANSETRON 4MG 2ML VIAL IV ONE (23:20)
[2022-11-13] MEDS ORDERED: NS 1,000 ML IV ONE (23:20)
[2022-11-14] MEDS ORDERED: ONDA4TAB6 PO (01:45)
[2022-11-14 01:52] VITALS: BP 126/74
== END 2022-11-14 01:58 | disposition home or self-care (01) ==
LOC: M ED 18:08
DX: K21.9 Gastro-esophageal reflux disease without esophagitis (principal); F32.A Depression, unspecified; G44.309 Post-traumatic headache, unspecified, not intractable; I10 Essential (primary) hypertension; E78.5 Hyperlipidemia, unspecified; J45.909 Unspecified asthma, uncomplicated; G43.909 Migraine, unspecified, not intractable, without status migrainosus; F10.10 Alcohol abuse, uncomplicated; Z79.52 Long term (current) use of systemic steroids; Z79.02 Long term (current) use of antithrombotics/antiplatelets; Z79.899 Other long term (current) drug therapy
CPT/HCPCS: 70450; 72125; 80048; 85025; 96361; 96374; 99283; J1885; J2405

== ENCOUNTER → 2022-12-12 | Outpatient (CLI) | payer MEDICARE, MEDICAID ==
[2022-12-12 14:35] LABS: BASO # 0.1 10^3/uL (0.0-0.2); BASO % 0.8 % (0.0-1.0); EOS # 0.2 10^3/uL (0.0-0.5); EOS % 3.9 % (0.0-3.0); HEMATOCRIT 42.8 % (42.0-52.0); HEMOGLOBIN 14.1 g/dl (13.5-17.5); LYMPH % 33.8 % (24.0-44.0); MEAN CORPUSCULAR HEMOGLOBIN 28.8 pg (27.0-33.0); MEAN CORPUSCULAR HGB CONC 32.9 g/dl (32.0-36.5); MEAN CORPUSCULAR VOLUME 87.5 fl (80.0-96.0); MONO # 0.4 10^3/uL (0.0-0.8); NEUTROPHILS # 3.2 10^3/uL (1.5-8.5); NEUTROPHILS % 54.2 % (36.0-66.0); PLATELET COUNT, AUTOMATED 172 10^3/uL (150-450); RED BLOOD COUNT 4.89 10^6/uL (4.30-6.10)
[2022-12-12 14:43] LABS: ALBUMIN 3.4 G/DL (3.2-5.2); ALKALINE PHOSPHATASE 68 U/L (46-116); ALT/SGPT 36 U/L (7.0-40); AST/SGOT 34 U/L (<34); BILIRUBIN,TOTAL 0.4 MG/DL (0.3-1.2); BLOOD UREA NITROGEN 18 MG/DL (9-23); CARBON DIOXIDE LEVEL 23 MMOL/L (20-31); CHLORIDE LEVEL 104 MMOL/L (98-107); CHOLESTEROL LEVEL 158 MG/DL (<200); CHOLESTEROL RISK RATIO 4.27 (<5); GLOMERULAR FILTRATION RATE > 60.0 (>56); GLUCOSE, FASTING 243 MG/DL (60-100); GLUCOSE,RANDOM 243 MG/DL (LESS THAN 200); LDL CHOLESTEROL 57.6 MG/DL (<100); PHOSPHORUS LEVEL 2.8 MG/DL (2.5-4.9); SODIUM LEVEL 136 MMOL/L (136-145); THYROID STIMULATING HORMONE 1.611 uIU/ML (0.55-4.78); TOTAL 25(OH) VITAMIN D 29.2 NG/ML (20.0-100.0); TOTAL PROTEIN 6.3 G/DL (5.7-8.2); TRIGLYCERIDES LEVEL 317 MG/DL (<150)
[2022-12-12 14:55] LABS: HEMOGLOBIN A1c 7.2 % (4.0-6.0)
== END ==
LOC: M CARPUL 12:54
PROVIDERS: ATTEND Registered Nurse
DX: F32.9 Major depressive disorder, single episode, unspecified (principal); Z79.899 Other long term (current) drug therapy

== ENCOUNTER → 2023-03-28 | Outpatient (REF) | payer MEDICARE, MEDICAID ==
[~2023-03-28] MED LIST changes: +MIRT-84 PO; -REME15TA2 PO
== END ==
LOC: M SFHCPLAZ 17:05
PROVIDERS: ATTEND Student in an Organized Health Care Education/Training Program
DX: J11.1 Influenza due to unidentified influenza virus with other respiratory manifestations (principal)

== ENCOUNTER → 2023-05-29 | Outpatient (REF) | payer MEDICARE, MEDICAID | LOC: M SFHCPLAZ 15:36 | PROVIDERS: ATTEND Physician Assistant Medical | DX: J06.9 Acute upper respiratory infection, unspecified (principal) ==

== ENCOUNTER 2023-08-20 06:34 | Day surgery (SDC) | payer MEDICARE, MEDICAID ==
[~2023-08-20] VITALS: Ht 190.5 cm; Wt 170.1 kg
[~2023-08-20 06:34] MED LIST changes: +AMIT10TA7 PO; +METF500T13 PO; +PROA1AER2 INH; +TRUL0.5I SC
[2023-08-20] MEDS ORDERED: propofoL 200 MG/20 ML VIAL As Ordered ONE (06:54)
[2023-08-20] MEDS ORDERED: LIDOCAINE 2% 100MG/5ML SDV (FOR ANES.) As Ordered ONE (06:54)
[2023-08-20] MEDS: NS 1,000 ML IV ONE (07:16)
[2023-08-20] MEDS ORDERED: ONDANSETRON 4MG 2ML VIAL As Ordered ONE (07:42)
[2023-08-20 08:06] VITALS: TEMP 98
[2023-08-20 08:25] VITALS: BP 113/71; O2SAT 95
== END 2023-08-20 09:32 | disposition home or self-care (01) ==
LOC: M OPP 06:34
PROVIDERS: ATTEND Internal Medicine Gastroenterology
DX: Z12.11 Encounter for screening for malignant neoplasm of colon (principal); K63.5 Polyp of colon; K57.30 Diverticulosis of large intestine without perforation or abscess without bleeding; K64.8 Other hemorrhoids; Z86.010 Personal history of colon polyps; I10 Essential (primary) hypertension; E11.9 Type 2 diabetes mellitus without complications; J45.909 Unspecified asthma, uncomplicated; E78.00 Pure hypercholesterolemia, unspecified; G57.30 Lesion of lateral popliteal nerve, unspecified lower limb; Z79.84 Long term (current) use of oral hypoglycemic drugs; Z79.899 Other long term (current) drug therapy; Z79.85 Long-term (current) use of injectable non-insulin antidiabetic drugs
CPT/HCPCS: 45385; 88305; J2405

== ENCOUNTER → 2023-08-31 | Outpatient (CLI) | payer MEDICARE, MEDICAID | LOC: M RAD 12:54 | PROVIDERS: ATTEND Orthopaedic Surgery | DX: M17.11 Unilateral primary osteoarthritis, right knee (principal); S83.241A Other tear of medial meniscus, current injury, right knee, initial encounter; Y93.9 Activity, unspecified; Y92.9 Unspecified place or not applicable ==

== ENCOUNTER → 2023-09-27 | Outpatient (CLI) | payer MEDICARE, MEDICAID ==
[2023-09-27 15:46] LABS: HEMATOCRIT 45.6 % (42.0-52.0); HEMOGLOBIN 15.2 g/dl (13.5-17.5); MEAN CORPUSCULAR HEMOGLOBIN 29.2 pg (27.0-33.0); MEAN CORPUSCULAR HGB CONC 33.3 g/dl (32.0-36.5); MEAN CORPUSCULAR VOLUME 87.5 fl (80.0-96.0); PLATELET COUNT, AUTOMATED 171 10^3/uL (150-450); RED BLOOD COUNT 5.21 10^6/uL (4.30-6.10); WHITE BLOOD COUNT 7.6 10^3/uL (4.0-10.0)
[2023-09-27 16:54] LABS: ALBUMIN 3.7 G/DL (3.2-5.2); ALKALINE PHOSPHATASE 65 U/L (46-116); ALT/SGPT 39 U/L (7.0-40); AST/SGOT 23 U/L (<34); BILIRUBIN,TOTAL 0.9 MG/DL (0.3-1.2); BLOOD UREA NITROGEN 17 MG/DL (9-23); CALCIUM LEVEL 9.5 MG/DL (8.5-10.1); CARBON DIOXIDE LEVEL 29 MMOL/L (20-31); CHLORIDE LEVEL 106 MMOL/L (98-107); CREATININE FOR GFR 1.16 MG/DL (0.70-1.30); GLOMERULAR FILTRATION RATE > 60.0 (>56); GLUCOSE, FASTING 117 MG/DL (60-100); POTASSIUM SERUM 3.6 MMOL/L (3.5-5.1); SODIUM LEVEL 142 MMOL/L (136-145); TOTAL PROTEIN 6.5 G/DL (5.7-8.2)
== END ==
LOC: M EKG 15:19
PROVIDERS: ATTEND Orthopaedic Surgery
DX: Z01.818 Encounter for other preprocedural examination (principal)

== ENCOUNTER → 2023-10-24 | Outpatient (CLI) | payer MEDICARE, MEDICAID ==
[~2023-10-24] MED LIST changes: +DOXY-323 PO; -DOXY-443 PO
[2023-10-24 10:57] LABS: BASO # 0.1 10^3/uL (0.0-0.2); BASO % 0.7 % (0.0-1.0); EOS # 0.3 10^3/uL (0.0-0.5); EOS % 3.5 % (0.0-3.0); HEMATOCRIT 41.9 % (42.0-52.0); HEMOGLOBIN 14.1 g/dl (13.5-17.5); LYMPH # 1.8 10^3/uL (1.5-5.0); LYMPH % 25.4 % (24.0-44.0); MEAN CORPUSCULAR HEMOGLOBIN 29.8 pg (27.0-33.0); MEAN CORPUSCULAR HGB CONC 33.7 g/dl (32.0-36.5); MEAN CORPUSCULAR VOLUME 88.6 fl (80.0-96.0); MONO # 0.5 10^3/uL (0.0-0.8); MONO % 7.6 % (2.0-8.0); NEUTROPHILS # 4.4 10^3/uL (1.5-8.5); NEUTROPHILS % 62.4 % (36.0-66.0); PLATELET COUNT, AUTOMATED 171 10^3/uL (150-450); RED BLOOD COUNT 4.73 10^6/uL (4.30-6.10); WHITE BLOOD COUNT 7.1 10^3/uL (4.0-10.0)
[2023-10-24 11:07] LABS: HEMOGLOBIN A1c 6.2 % (4.0-6.0)
[2023-10-24 11:10] LABS: ALBUMIN 3.6 G/DL (3.2-5.2); ALKALINE PHOSPHATASE 65 U/L (46-116); ALT/SGPT 33 U/L (7.0-40); AST/SGOT 19 U/L (<34); BILIRUBIN,TOTAL 0.7 MG/DL (0.3-1.2); BLOOD UREA NITROGEN 17 MG/DL (9-23); CALCIUM LEVEL 9.6 MG/DL (8.5-10.1); CARBON DIOXIDE LEVEL 28 MMOL/L (20-31); CHLORIDE LEVEL 106 MMOL/L (98-107); CHOLESTEROL LEVEL 164 MG/DL (<200); CHOLESTEROL RISK RATIO 3.99 (<5); CREATININE FOR GFR 1.11 MG/DL (0.70-1.30); GLOMERULAR FILTRATION RATE > 60.0 (>56); GLUCOSE, FASTING 105 MG/DL (60-100); HDL CHOLESTEROL 41.1 MG/DL (>40); LDL CHOLESTEROL 82.7 MG/DL (<100); NON-HDL-C 122.9 MG/DL; POTASSIUM SERUM 4.4 MMOL/L (3.5-5.1); SODIUM LEVEL 140 MMOL/L (136-145); TOTAL PROTEIN 6.6 G/DL (5.7-8.2); TRIGLYCERIDES LEVEL 201 MG/DL (<150)
== END ==
LOC: M LAB 09:32
PROVIDERS: ATTEND Physician Assistant Medical
DX: E11.9 Type 2 diabetes mellitus without complications (principal); E78.2 Mixed hyperlipidemia; I10 Essential (primary) hypertension; J45.30 Mild persistent asthma, uncomplicated

== ENCOUNTER → 2023-11-05 | Outpatient (CLI) | payer MEDICARE, MEDICAID | LOC: M LAB 09:40 → M PLALAB 09:40 | PROVIDERS: ATTEND Physician Assistant | DX: Z12.5 Encounter for screening for malignant neoplasm of prostate (principal) ==

== ENCOUNTER 2023-12-14 16:30 | Emergency (ER) | payer MEDICARE, MEDICAID ==
[~2023-12-14] VITALS: Ht 190.5 cm; Wt 165.8 kg
[~2023-12-14 16:30] MED LIST changes: +ONDA-282 PO; -ONDA4TAB6 PO
[2023-12-14] MEDS: KETOROLAC 60MG 2ML VIAL IM ONE (18:06)
[2023-12-14] MEDS ORDERED: NAPR-837 PO (18:58)
[2023-12-14] MEDS ORDERED: METH-1165 PO (18:58)
[2023-12-14 19:02] VITALS: BP 157/95; TEMP 97; O2SAT 96
== END 2023-12-14 19:16 | disposition home or self-care (01) ==
LOC: M ED 16:30
DX: S39.012A Strain of muscle, fascia and tendon of lower back, initial encounter (principal); X50.0XXA Overexertion from strenuous movement or load, initial encounter; I10 Essential (primary) hypertension; G43.909 Migraine, unspecified, not intractable, without status migrainosus; J45.909 Unspecified asthma, uncomplicated; K21.9 Gastro-esophageal reflux disease without esophagitis; N40.0 Benign prostatic hyperplasia without lower urinary tract symptoms; Y92.002 Bathroom of unspecified non-institutional (private) residence as the place of occurrence of the external cause; Y93.E5 Activity, floor mopping and cleaning; Y99.9 Unspecified external cause status; Z79.52 Long term (current) use of systemic steroids; Z79.4 Long term (current) use of insulin; Z79.83 Long term (current) use of bisphosphonates; Z79.899 Other long term (current) drug therapy
CPT/HCPCS: 96372; 99283; J1885

== ENCOUNTER → 2024-02-14 | Outpatient (CLI) | payer OTHER, MEDICAID ==
[~2024-02-14] MED LIST changes: +METH-1165 PO
[2024-02-14 17:07] LABS: APPEARANCE, URINE CLEAR (CLEAR); BACTERIA, URINE AUTO NEGATIVE (NEGATIVE); BILIRUBIN, URINE AUTO NEGATIVE (NEGATIVE); BLOOD, URINE BLOOD NEGATIVE (NEGATIVE); COLOR, URINE YELLOW (YELLOW); GLUCOSE, URINE (UA) AUTO NEGATIVE (NEGATIVE); KETONE, URINE AUTO NEGATIVE (NEGATIVE); LEUKOCYTE ESTERASE, URINE AUTO NEGATIVE (NEGATIVE); MUCUS, URINE SMALL (NEGATIVE); NITRITE, URINE AUTO NEGATIVE (NEGATIVE); PROTEIN, URINE AUTO 1+ mg/dL (NEGATIVE); RBC, URINE AUTO 0 /HPF (0-3); SPECIFIC GRAVITY URINE AUTO 1.029 (1.002-1.035); SQUAMOUS EPITHELIAL CELL UR AU 2 /HPF (0-6); WBC, URINE AUTO 1 /HPF (0-3)
== END ==
LOC: M LAB 16:08
PROVIDERS: ATTEND Physician Assistant
DX: R10.9 Unspecified abdominal pain (principal)

== ENCOUNTER → 2024-03-10 | Outpatient (CLI) | payer MEDICARE, MEDICAID | LOC: M RAD 11:52 | PROVIDERS: ATTEND Physician Assistant | DX: R10.9 Unspecified abdominal pain (principal) ==

== ENCOUNTER → 2024-03-25 | Outpatient (CLI) | payer MEDICARE, MEDICAID ==
[~2024-03-25] MED LIST changes: -DOXY-323 PO; +DOXY-441 PO
[2024-03-25 09:30] LABS: BLOOD UREA NITROGEN 15 MG/DL (9-23); CREATININE FOR GFR 1.02 MG/DL (0.70-1.30); GLOMERULAR FILTRATION RATE > 60.0 (>56)
== END ==
LOC: M LAB 08:31
PROVIDERS: ATTEND Psychiatry & Neurology Neurology
DX: I10 Essential (primary) hypertension (principal)

== ENCOUNTER → 2024-04-07 | Outpatient (CLI) | payer MEDICARE, MEDICAID ==
[~2024-04-07] MED LIST changes: +MIDAZOLAM INJ 2MG/2ML VIAL As Ordered ONE
[2024-04-07 08:58] VITALS: TEMP 97.4
[2024-04-07 11:46] VITALS: BP 132/85; O2SAT 99
== END ==
LOC: M SDC 08:47
PROVIDERS: ATTEND Psychiatry & Neurology Neurology
DX: G43.909 Migraine, unspecified, not intractable, without status migrainosus (principal)
CPT/HCPCS: 70551; J2250

== ENCOUNTER → 2024-05-01 | Outpatient (CLI) | payer MEDICARE, MEDICAID ==
[~2024-05-01] MED LIST changes: -MIDAZOLAM INJ 2MG/2ML VIAL As Ordered ONE
[2024-05-01 14:45] LABS: BASO # 0.1 10^3/uL (0.0-0.2); EOS # 0.2 10^3/uL (0.0-0.5); EOS % 2.7 % (0.0-3.0); HEMOGLOBIN 15.6 g/dl (13.5-17.5); LYMPH # 3.1 10^3/uL (1.5-5.0); LYMPH % 39.7 % (24.0-44.0); MEAN CORPUSCULAR HEMOGLOBIN 29.7 pg (27.0-33.0); MEAN CORPUSCULAR HGB CONC 32.5 g/dl (32.0-36.5); MEAN CORPUSCULAR VOLUME 91.4 fl (80.0-96.0); MONO # 0.6 10^3/uL (0.0-0.8); MONO % 8.1 % (2.0-8.0); NEUTROPHILS # 3.7 10^3/uL (1.5-8.5); NEUTROPHILS % 48.1 % (36.0-66.0); PLATELET COUNT, AUTOMATED 211 10^3/uL (150-450); RED BLOOD COUNT 5.25 10^6/uL (4.30-6.10); WHITE BLOOD COUNT 7.7 10^3/uL (4.0-10.0)
[2024-05-01 15:15] LABS: ALBUMIN 3.9 G/DL (3.2-5.2); ALKALINE PHOSPHATASE 70 U/L (40-129); ALT/SGPT 35 U/L (7.0-40); AST/SGOT 29 U/L (<34); BILIRUBIN,TOTAL 0.8 MG/DL (0.3-1.2); BLOOD UREA NITROGEN 18 MG/DL (9-23); CALCIUM LEVEL 9.5 MG/DL (8.5-10.1); CARBON DIOXIDE LEVEL 28 MMOL/L (20-31); CHLORIDE LEVEL 105 MMOL/L (98-107); CREATININE FOR GFR 1.19 MG/DL (0.70-1.30); GLOMERULAR FILTRATION RATE > 60.0 (>56); GLUCOSE, FASTING 112 MG/DL (60-100); SODIUM LEVEL 142 MMOL/L (136-145); TOTAL PROTEIN 7.1 G/DL (5.7-8.2)
[2024-05-01 15:33] LABS: HEMOGLOBIN A1c 6.4 % (4.0-6.0)
== END ==
LOC: M WUC 10:02
PROVIDERS: ATTEND Physician Assistant Medical
DX: K76.0 Fatty (change of) liver, not elsewhere classified (principal); E11.9 Type 2 diabetes mellitus without complications; J45.30 Mild persistent asthma, uncomplicated

== ENCOUNTER → 2024-06-09 | Outpatient (CLI) | payer MEDICARE, MEDICAID | LOC: M PLAIMG 08:44 | PROVIDERS: ATTEND Physician Assistant Medical | DX: R91.8 Other nonspecific abnormal finding of lung field (principal) ==

== ENCOUNTER 2024-09-13 16:14 | Emergency (ER) | payer MEDICARE, MEDICAID ==
[~2024-09-13] VITALS: Ht 190.5 cm; Wt 170.5 kg
[2024-09-13] MEDS ORDERED: CYCL-707 PO (19:21)
[2024-09-13] MEDS: CYCLOBENZAPRINE 10MG TABLET PO ONE (19:27)
[2024-09-13 19:31] VITALS: BP 135/90; TEMP 97.8; O2SAT 96
== END 2024-09-13 19:32 | disposition home or self-care (01) ==
LOC: M ED 16:14
DX: S50.02XA Contusion of left elbow, initial encounter (principal); M25.552 Pain in left hip; M25.512 Pain in left shoulder; W00.0XXA Fall on same level due to ice and snow, initial encounter; E11.9 Type 2 diabetes mellitus without complications; I10 Essential (primary) hypertension; K21.9 Gastro-esophageal reflux disease without esophagitis; E78.5 Hyperlipidemia, unspecified; M25.78 Osteophyte, vertebrae; M50.30 Other cervical disc degeneration, unspecified cervical region; Y92.009 Unspecified place in unspecified non-institutional (private) residence as the place of occurrence of the external cause; Y93.89 Activity, other specified; Y99.9 Unspecified external cause status; Z79.52 Long term (current) use of systemic steroids; Z79.02 Long term (current) use of antithrombotics/antiplatelets; Z79.899 Other long term (current) drug therapy

== ENCOUNTER → 2024-10-07 | Outpatient (CLI) | payer MEDICARE, MEDICAID ==
[~2024-10-07] MED LIST changes: +CYCL-707 PO
== END ==
LOC: M PLALAB 09:43
PROVIDERS: ATTEND Physician Assistant
DX: Z12.5 Encounter for screening for malignant neoplasm of prostate (principal)
CPT/HCPCS: 36415; G0103

== ENCOUNTER → 2025-05-03 | Outpatient (CLI) | payer MEDICARE, MEDICAID ==
[~2025-05-03] MED LIST changes: +AMIT10TA11 PO; -AMIT10TA7 PO; +DIVA-41 PO; -DIVA500T94 PO; -IBUP-1022 PO; +IBUP600T42 PO; +TOPI-257 PO; -TOPI100T9 PO
[2025-05-03 15:29] LABS: ALT/SGPT 27.0 U/L (7.0-40); AST/SGOT 21.0 U/L (<34); BASO # 0.1 10^3/uL (0.0-0.2); BASO % 0.9 % (0.0-1.0); CALCIUM LEVEL 9.7 MG/DL (8.5-10.1); CARBON DIOXIDE LEVEL 26.0 MMOL/L (20-31); CHLORIDE LEVEL 101.0 MMOL/L (98-107); CREATININE FOR GFR 1.13 MG/DL (0.70-1.30); EOS # 0.3 10^3/uL (0.0-0.5); EOS % 4.0 % (0.0-3.0); GLOMERULAR FILTRATION RATE 76.3 (>56); LYMPH # 2.8 10^3/uL (1.5-5.0); LYMPH % 34.7 % (24.0-44.0); MONO # 0.7 10^3/uL (0.0-0.8); MONO % 8.8 % (2.0-8.0); NEUTROPHILS # 4.2 10^3/uL (1.5-8.5); NEUTROPHILS % 51.2 % (36.0-66.0); PLATELET COUNT, AUTOMATED 202 10^3/uL (150-450); POTASSIUM SERUM 3.8 MMOL/L (3.5-5.1); PTH INTACT 36.0 PG/ML (18.5-88.0); SODIUM LEVEL 138.0 MMOL/L (136-145)
[2025-05-03 15:31] LABS: TOTAL 25(OH) VITAMIN D 27.2 NG/ML (20.0-100.0)
[2025-05-03 15:32] LABS: FREE T4 1.02 NG/DL (0.89-1.76)
[2025-05-03 15:53] LABS: ESTIMATED AVERAGE GLUCOSE 148.0 MG/DL (60-110)
== END ==
LOC: M PLALAB 11:04
PROVIDERS: ATTEND Physician Assistant Medical
DX: E55.9 Vitamin D deficiency, unspecified (principal); E11.9 Type 2 diabetes mellitus without complications; I10 Essential (primary) hypertension

== ENCOUNTER → 2025-05-18 | Outpatient (CLI) | payer MEDICARE, MEDICAID ==
[~2025-05-18] MED LIST changes: +ISOVUE-370 76% 100 ML VIAL ONE
== END ==
LOC: M PLAIMG 09:09
PROVIDERS: ATTEND Physician Assistant Medical
DX: R91.8 Other nonspecific abnormal finding of lung field (principal)
CPT/HCPCS: 71260; Q9967